=== PATIENT | female | born 1945 | race Caucasian/White ===

== ENCOUNTER → 2018-02-23 15:50 | Outpatient (CLI) | payer MEDICARE, SELFPAY ==
[2018-02-23 18:09] LABS: Anion Gap 10 (5-15); BUN 17 mg/dL (7-18); BUN/Creat Ratio 22.5 RATIO (10-20); Calcium,Total 8.7 mg/dL (8.5-10.1); Chloride 107 mmol/L (98-107); Cholesterol 198 mg/dL (200); Creatinine, Serum 0.76 mg/dL (0.55-1.02); EST Glomerular Filtration Rate 79 mL/min (>60); Est Glom Filt Rate - Afr Amer 96 mL/min (>60); Glucose 123 mg/dL (74-106); High Density Lipoprotein 38 mg/dL; Potassium 3.9 mmol/L (3.5-5.1); Sodium Level 143 mmol/L (136-145); Triglycerides 372 mg/dL; Very Low Density Lipoprotein 74 mg/dL (5-40)
== END ==
PROVIDERS: Family Provider Family Medicine; PCP Family Medicine; Visit Provider Family Medicine
DX: I10 Essential (primary) hypertension (principal)
CPT/HCPCS: 36415; 80048; 80061

== ENCOUNTER → 2018-02-28 17:19 | Outpatient (CLI) | payer MEDICARE, SELFPAY ==
--- NOTE | 2018-02-28 17:26 | RAD_ITS ---
STUDY: X-RAY - ABDOMEN/PELVIS REASON FOR EXAM: Female, 72 years old. Constipation TECHNIQUE: AP supine and upright views of the abdomen and pelvis. COMPARISON: None. FINDINGS: There is no bowel obstruction. There is a large amount of stool in the colon, consistent with constipation. There is no free air. There are degenerative changes noted in the spine. RAD/Abd Inc Decub and/or Erect IMPRESSION: No bowel obstruction. Constipation. Electronically Signed: Jermain Tenorio, at 18:01 EDT Tel , Service support ,
== END ==
PROVIDERS: Family Provider Family Medicine; PCP Family Medicine; Visit Provider Nurse Practitioner Adult Health
DX: K59.00 Constipation, unspecified (principal)
CPT/HCPCS: 74019

== ENCOUNTER → 2019-05-17 16:43 | Outpatient (CLI) | payer MEDICARE, SELFPAY ==
[2018-03-31 14:11] VITALS: BMI 39.6
[2019-05-17 17:23] LABS: Absolute Lymphocyte Count 2.95 X10^3/uL (0.83-4.51); Absolute Neutrophil Count 6.3 X10^3/uL (2.0-7.7); Basophil# 0.05 X10^3/uL; Basophil% 0.5 % (0-1); Eosinophil# 0.18 X10^3/uL; Eosinophils% 1.7 % (0-5); Hematocrit 42.5 % (37-47); Lymphocyte # 2.95 X10^3/ul (4.0); Mean Corp Hgb Conc 32.9 g/dL (32-36); Mean Corpuscular Hgb 33.5 pg (27.0-32.0); Mean Corpuscular Volume 101.7 fL (81-99); Mean Platelet Vol. 10.7 fl (6.2-12.0); Monocyte# 0.99 X10^3/uL; Monocyte% 9.4 % (0-10); NRBC Flagged by Analyzer 0 % (0-5); Neutrophil % 59.9 % (47-70); Platelet Count 184 K/mm3 (150-450); RBC Distribution Width CV 11.9 % (11.6-14.6); RBC Distribution Width SD 44.4 fl (35.1-43.9); Red Blood Count 4.18 M/mm3 (4.2-5.4); White Blood Count 10.5 K/mm3 (4.4-11.0)
--- NOTE | 2019-05-17 17:25 | RAD_ITS ---
STUDY: X-RAY - ABDOMEN/PELVIS REASON FOR EXAM: Female, 74 years old. Irregular bowel. TECHNIQUE: AP supine and upright views of the abdomen and pelvis. COMPARISON: None. FINDINGS: Normal visualized lung bases. There is moderate to abundant fecal debris within the patient. There is a focal loop of small bowel projecting over the left pelvis mildly distended, nonspecific which may indicate mild localized ileus. No signs of bowel obstruction. No free air. The visualized liver, spleen and kidneys are grossly normal in size and morphology. Normal soft tissue structures. There are diffuse degenerative changes of the visualized lumbar spine and bilateral hips. RAD/Abd Inc Decub and/or Erect IMPRESSION: Suggestion of constipation, clinical correlation recommended. No distinct signs of bowel obstruction or free air. Electronically Signed: Elisha Watson MD at 4:54 EDT , Service support ,
[2019-05-17 18:07] LABS: Vitamin D,25 Hydroxy 33.5 ng/mL (29.95-100.01)
[2019-05-17 18:15] LABS: ALB/GLOB Ratio 0.9 RATIO (0.9-2.4); AST(SGOT) 26 U/L (15-37); Alanine Aminotransfer ALT/SGPT 31 U/L (13-56); Albumin, Serum 3.5 g/dL (3.2-5.0); Alkaline Phosphatase 86 U/L (45-117); Anion Gap 7 (5-15); BUN 23 mg/dL (7-18); BUN/Creat Ratio 35.9 RATIO (10-20); Chloride 110 mmol/L (98-107); Creatinine, Serum 0.64 mg/dL (0.55-1.02); EST Glomerular Filtration Rate 96 mL/min (>60); Est Glom Filt Rate - Afr Amer 116 mL/min (>60); Globulin 4.1 g/dL (2.2-4.2); Glucose 91 mg/dL (74-106); Potassium 3.9 mmol/L (3.5-5.1); Protein, Total 7.6 g/dL (6.4-8.2); Sodium Level 141 mmol/L (136-145); Thyroid Stim Hormone (TSH) 1.87 uIU/mL (0.358-3.74)
== END ==
PROVIDERS: Family Provider Family Medicine Geriatric Medicine; PCP Family Medicine Geriatric Medicine; Referring Provider Family Medicine Geriatric Medicine; Visit Provider Family Medicine Geriatric Medicine
DX: K56.41 Fecal impaction (principal); E55.9 Vitamin D deficiency, unspecified; R53.83 Other fatigue
CPT/HCPCS: 36415; 74019; 80053; 82306; 84443; 85025

== ENCOUNTER 2021-08-03 16:05 | Outpatient (CLI) | payer MEDICARE, SELFPAY ==
[2021-08-03 18:06] LABS: Anion Gap 6 (5-15); BUN 20 mg/dL (7-18); BUN/Creat Ratio 27.6 RATIO (10-20); Calcium,Total 9.2 mg/dL (8.5-10.1); Chloride 106 mmol/L (98-107); Cholesterol 172 mg/dL (200); Creatinine, Serum 0.72 mg/dL (0.55-1.02); EST Glomerular Filtration Rate 83 mL/min (>60); Est Glom Filt Rate - Afr Amer 100 mL/min (>60); Glucose 97 mg/dL (74-106); High Density Lipoprotein 43 mg/dL; Potassium 4.8 mmol/L (3.5-5.1); Sodium Level 141 mmol/L (136-145); Triglycerides 317 mg/dL; Very Low Density Lipoprotein 63 mg/dL (5-40)
== END 2021-08-03 23:59 | disposition short-term general hospital (02) ==
LOC: MFPLAB 16:08
PROVIDERS: PCP Family Medicine Geriatric Medicine; Visit Provider Family Medicine
DX: I10 Essential (primary) hypertension (principal)
CPT/HCPCS: 36415; 80048; 80061

== ENCOUNTER → 2022-10-28 | Outpatient (CLI) | payer MEDICARE, SELFPAY ==
[2022-10-28 17:54] LABS: Absolute Lymphocyte Count 1.91 X10^3/uL (0.83-4.51); Absolute Neutrophil Count 5.5 X10^3/uL (2.0-7.7); Basophil# 0.06 X10^3/uL; Basophil% 0.7 % (0-1); Eosinophil# 0.19 X10^3/uL; Eosinophils% 2.2 % (0-5); Hematocrit 42.2 % (37-47); Hemoglobin 14.7 g/dL (12.0-15.0); Lymphocyte # 1.91 X10^3/ul (0.83-4.51); Lymphocyte % 21.9 % (19-41); Mean Corp Hgb Conc 34.8 g/dL (32-36); Mean Corpuscular Hgb 35.9 pg (27.0-32.0); Mean Corpuscular Volume 102.9 fL (81-99); Mean Platelet Vol. 11.5 fl (6.2-12.0); Monocyte# 1.04 X10^3/uL; Monocyte% 11.9 % (0-10); NRBC Flagged by Analyzer 0 % (0-5); Neutrophil # 5.46 X10^3/uL (2.7-7.7); Neutrophil % 62.7 % (47-70); Platelet Count 199 K/mm3 (150-450); RBC Distribution Width CV 12.4 % (11.6-14.6); RBC Distribution Width SD 46.4 fl (35.1-43.9); White Blood Count 8.7 K/mm3 (4.4-11.0)
[2022-10-28 18:14] LABS: Vitamin D,25 Hydroxy 55.1 ng/mL
[2022-10-28 18:28] LABS: Anion Gap 5 (5-15); BUN 17 mg/dL (7-18); Calcium,Total 9.1 mg/dL (8.5-10.1); Chloride 107 mmol/L (98-107); Creatinine, Serum 0.74 mg/dL (0.55-1.02); EST Glomerular Filtration Rate 81 mL/min (>60); Est Glom Filt Rate - Afr Amer 98 mL/min (>60); Glucose 120 mg/dL (74-106); Magnesium 2.3 mg/dL (1.6-2.6); Potassium 4.2 mmol/L (3.5-5.1); Sodium Level 139 mmol/L (136-145); Thyroid Stim Hormone (TSH) 1.64 uIU/mL (0.358-3.74)
== END | disposition home or self-care (01) ==
LOC: MFPLAB 14:40
PROVIDERS: PCP Family Medicine; Referring Provider Family Medicine; Visit Provider Family Medicine
DX: Z00.00 Encounter for general adult medical examination without abnormal findings (principal); R53.83 Other fatigue; E55.9 Vitamin D deficiency, unspecified
CPT/HCPCS: 36415; 80048; 82306; 83735; 84443; 85025

== ENCOUNTER → 2022-12-23 | Outpatient (CLI) | payer MEDICARE, SELFPAY ==
--- NOTE | 2022-12-23 13:21 | BI_ITS ---
MAMMOGRAPHY - BILATERAL SCREENING REASON FOR EXAM: Female, 77 years old. Routine annual screening examination. PERTINENT HISTORY: Non-contributory. Prior left breast aspiration. TECHNIQUE: Digital bilateral breast andre (3D mammographic acquisition) in the CC and MLO projections. 2-D mediolateral oblique (MLO) and craniocaudad (CC) views of both breasts were obtained. CAD: Full Field Digital Mammography with Computer Added Detection was performed. COMPARISON: Comparison is made with prior study of October 04, 2013. FINDINGS: Breast Composition: The breasts are heterogeneously dense, which may obscure small masses. There are no dominant masses or suspicious calcifications. No other significant abnormalities are identified. There has been no significant change since the prior study. BI/SCRN MAMM (CAD)W/ANDRE BILAT IMPRESSION: Stable bilateral screening mammogram. Yearly follow-up mammogram recommended. (A) ASSESSMENT CATEGORY: BIRADS Category 1: Negative. A letter regarding these results will be sent to the patient by the facility within 30 days. Approximately 10% of breast cancers are not detected by mammography. A normal mammogram should not delay biopsy of a clinically suspicious abnormality. [id number] Electronically Signed: Sven Rosado MD at 14:34 EDT ,
--- NOTE | 2022-12-23 14:02 | BD_ITS ---
STUDY: DUAL ENERGY X-RAY ABSORPTIOMETRY / DXA REASON FOR EXAM: Female, 77 years old. [id number] TECHNIQUE: Bone Mineral Density (BMD) measurements of lumbar spine and bilateral hips were obtained. COMPARISON: None. FINDINGS: Lumbar Spine (L1-L4): g/cm2 (1.089) / T-score (0.4) / Z-score (3.0) Findings are suggestive of normal bone density with a low fracture risk. Left Femur Total: g/cm2 (1.000) / T-score (0.5) / Z-score (2.5) Left Femoral Neck: g/cm2 (0.604) / T-score (-2.2) / Z-score (0.1) Right Femur Total: g/cm2 (0.974) / T-score (0.3) / Z-score (2.3) Right Femoral Neck: g/cm2 (0.788) / T-score (-0.6) / Z-score (1.7) BD/Dexa Bone Density Study IMPRESSION: The patient is considered osteopenic as outlined below according to World Ash Organization (WHO) criteria with a moderate fracture risk. Reference Information: The T-score is the number of standard deviations above or below the standard which is normal for young adults at their peak bone mineral density. The World Health Organization (WHO) interprets the T-scores as follows: Above -1 Normal bone density Between -1 and -2.5 Osteopenia Equal to / or below -2.5 Osteoporosis As a practical clinical guideline, osteopenia may be graded as follows: Mild -1 through -1.5 Moderate -1.6 through -2.0 Severe -2.1 through -2.4 The Z-score is the number of standard deviations above or below age-matched controls. A Z-score of less than -1.5 would be considered abnormal. References: 1. NIH Osteoporosis and Related Bone Diseases www osteo.org 2. International Society for Clinical Densitometry www iscd.org 3. National Osteoporosis Foundation www nof.org Electronically Signed: Sven Rosado MD at 14:45 EDT ,
== END | disposition home or self-care (01) ==
PROVIDERS: PCP Family Medicine; Referring Provider Family Medicine; Visit Provider Family Medicine
DX: Z00.00 Encounter for general adult medical examination without abnormal findings (principal); Z12.31 Encounter for screening mammogram for malignant neoplasm of breast; Z78.0 Asymptomatic menopausal state
CPT/HCPCS: 77063; 77067; 77080

== ENCOUNTER 2024-02-24 11:19 | Outpatient (CLI) | payer MEDICARE, SELFPAY ==
[2024-02-24 16:12] LABS: Absolute Lymphocyte Count 1.85 X10^3/uL (0.83-4.51); Absolute Neutrophil Count 5.4 X10^3/uL (2.0-7.7); Basophil# 0.05 X10^3/uL; Basophil% 0.6 % (0-1); Eosinophil# 0.17 X10^3/uL; Eosinophils% 2.1 % (0-5); Hematocrit 43.2 % (37-47); Hemoglobin 14.6 g/dL (12.0-15.0); Lymphocyte # 1.85 X10^3/ul (0.83-4.51); Lymphocyte % 22.5 % (19-41); Mean Corp Hgb Conc 33.8 g/dL (32-36); Mean Corpuscular Hgb 33.9 pg (27.0-32.0); Mean Corpuscular Volume 100.2 fL (81-99); Mean Platelet Vol. 10.9 fl (6.2-12.0); Monocyte# 0.73 X10^3/uL; Monocyte% 8.9 % (0-10); NRBC Flagged by Analyzer 0 % (0-5); Neutrophil % 65.4 % (47-70); Platelet Count 199 K/mm3 (150-450); RBC Distribution Width CV 11.4 % (11.6-14.6); RBC Distribution Width SD 42.2 fl (35.1-43.9); Red Blood Count 4.31 M/mm3 (4.2-5.4); White Blood Count 8.2 K/mm3 (4.4-11.0)
[2024-02-24 16:35] LABS: Vitamin D,25 Hydroxy 69.5 ng/mL
[2024-02-24 16:49] LABS: ALB/GLOB Ratio 0.8 RATIO (0.9-2.4); AST(SGOT) 22 U/L (15-37); Alanine Aminotransfer ALT/SGPT 31 U/L (13-56); Albumin, Serum 3.3 g/dL (3.2-5.0); Alkaline Phosphatase 74 U/L (45-117); Anion Gap 6 (5-15); BUN 24 mg/dL (7-18); BUN/Creat Ratio 32.7 RATIO (10-20); CRP 5.54 mg/L (0.0-3.0); Calcium,Total 8.8 mg/dL (8.5-10.1); Chloride 104 mmol/L (98-107); Cholesterol 176 mg/dL (200); Creatinine, Serum 0.74 mg/dL (0.55-1.02); EST Glomerular Filtration Rate 81 mL/min (>60); Est Glom Filt Rate - Afr Amer 98 mL/min (>60); Glucose 99 mg/dL (74-106); High Density Lipoprotein 65 mg/dL; Magnesium 2.4 mg/dL (1.6-2.6); Potassium 4.3 mmol/L (3.5-5.1); Protein, Total 7.3 g/dL (6.4-8.2); Sodium Level 137 mmol/L (136-145); Triglycerides 156 mg/dL; Very Low Density Lipoprotein 31 mg/dL (5-40)
[2024-02-26 07:07] LABS: HOMOCYSTEINE 8.6 umol/L (0.0-19.2)
== END 2024-02-24 23:59 | disposition home or self-care (01) ==
LOC: MFPLAB 11:20
PROVIDERS: PCP Family Medicine; Visit Provider Family Medicine
DX: Z00.00 Encounter for general adult medical examination without abnormal findings (principal); R53.1 Weakness; I10 Essential (primary) hypertension; E55.9 Vitamin D deficiency, unspecified
CPT/HCPCS: 36415; 80053; 80061; 82306; 83090; 83735; 84443; 85025; 86140

== ENCOUNTER → 2024-08-24 | Outpatient (CLI) | payer MEDICARE, SELFPAY ==
[2024-08-24 18:18] LABS: Hemoglobin A1c 5.6 % (3.8-5.6)
[2024-08-24 18:41] LABS: Anion Gap 8 (5-15); BUN 25 mg/dL (7-18); BUN/Creat Ratio 30.9 RATIO (10-20); Calcium,Total 9.7 mg/dL (8.5-10.1); Chloride 105 mmol/L (98-107); Cholesterol 191 mg/dL (200); Creatinine, Serum 0.81 mg/dL (0.55-1.02); EST Glomerular Filtration Rate 72 mL/min (>60); Est Glom Filt Rate - Afr Amer 87 mL/min (>60); Glucose 114 mg/dL (74-106); High Density Lipoprotein 67 mg/dL; Potassium 4.2 mmol/L (3.5-5.1); Sodium Level 138 mmol/L (136-145); Triglycerides 205 mg/dL; Very Low Density Lipoprotein 41 mg/dL (5-40)
[2024-08-25 10:33] LABS: Vitamin D,25 Hydroxy 81.1 ng/mL
== END | disposition home or self-care (01) ==
LOC: MFPLAB 15:21
PROVIDERS: PCP Family Medicine; Referring Provider Family Medicine; Visit Provider Family Medicine
DX: Z00.00 Encounter for general adult medical examination without abnormal findings (principal); E55.9 Vitamin D deficiency, unspecified
CPT/HCPCS: 36415; 80048; 80061; 82306; 83036; 84443

== ENCOUNTER 2024-10-29 14:53 | Outpatient (RCR) | payer SELFPAY | END 2024-11-21 23:59 | LOC: NS 14:53 | PROVIDERS: PCP Family Medicine | DX: Z71.3 Dietary counseling and surveillance (principal); E66.9 Obesity, unspecified; M16.11 Unilateral primary osteoarthritis, right hip; Z68.41 Body mass index [BMI] 40.0-44.9, adult | CPT/HCPCS: 97802 ==

== ENCOUNTER 2025-04-16 13:09 | Inpatient (IN) | payer MEDICARE, SELFPAY ==
[2025-04-16] VITALS (46 sets, daily range): BP systolic 73–222; BP diastolic 54–127; PULSE 62–158; RESP 12–31; TEMP 36.4–37.2; O2SAT 34–100; BMI 43.8
[2025-04-16] MEDS: 0.9% Normal Saline (1000mL) 1,000 ML 999 ML IV (13:36)
[2025-04-16] MEDS: Amiodarone 360 MG in Dextrose 5% Viaflo Bag 192.8 ML 33.3 MG CONT INF (13:46)
--- NOTE | 2025-04-16 13:54 | RAD_ITS ---
PROCEDURE: CHEST 1 VIEW (PORTABLE) 04/16/2025 REASON FOR EXAM: CHEST PAIN TECHNIQUE: Frontal view of the chest. FINDINGS: Diffuse reticular opacities and vascular indistinctness with hilar prominence favoring edema. Infection is possible. Correlate clinically. The heart borders are unremarkable. No acute osseous abnormalities. RAD/Chest 1 View (Portable) IMPRESSION: Pulmonary findings as above. Reading Location: [id number]
--- NOTE | 2025-04-16 14:00 | EKG12_ITS ---
Test Reason : CODE BLUE Blood Pressure : */* mmHG Vent. Rate : 118 BPM Atrial Rate : * BPM P-R Int : * ms QRS Dur : 88 ms QT Int : 314 ms P-R-T Axes : * 2 74 degrees QTcB Int : 440 ms Atrial fibrillation with rapid ventricular response Nonspecific ST and T wave abnormality Abnormal ECG Confirmed by GAMALIEL DUNCAN, XENA ([id number]), editorial cartoonist SALOME UPTON ([id number]) on 04/17/2025 8:00:46 AM Referred By: EDDIE Confirmed By: XENA ALSTON MD
[2025-04-16 14:05] LABS: Hematocrit 43.4 % (37-47); Hemoglobin 15.0 g/dL (12.0-15.0); Immature Granulocytes Count 0.100 X10^3/uL (0.0-0.0); Mean Corp Hgb Conc 34.6 g/dL (32-36); Mean Corpuscular Volume 100.5 fL (81-99); Mean Platelet Vol. 10.7 fl (6.2-12.0); NRBC Flagged by Analyzer 0 % (0-5); Platelet Count 192 K/mm3 (150-450); RBC Distribution Width CV 12.1 % (11.6-14.6); RBC Distribution Width SD 45.0 fl (35.1-43.9); Red Blood Count 4.32 M/mm3 (4.2-5.4); White Blood Count 15.6 K/mm3 (4.4-11.0)
--- NOTE | 2025-04-16 14:06 | CT_ITS ---
PROCEDURE: CTA CHEST W/WO CONTRAST 04/16/2025 REASON FOR EXAM: ASSESS FOR DISSECTION AND PE Chest pain. TECHNIQUE: Procedure Code: [id number] Modality: CT Procedure: CTA CHEST W/WO CONTRAST Multiplanar Sagittal and Coronal images were obtained. 3D post processing was performed CONTRAST: Isovue-300 VOLUME: 100 mL One or more dose reduction techniques were used (e.g., Automated exposure control, adjustment of the mA and/or kV according to patient size, use of iterative reconstruction technique). RADIATION DOSE SUMMARY: CTDlvol: 12.8 mGy DLP: 566.66 mGycm COMPARISON: Prior chest radiograph done earlier in the day. FINDINGS: Hardware: None Lymph nodes: Small mediastinal lymph nodes. Calcified bilateral hilar lymph nodes. Heart: The heart size is upper limits of normal. No significant coronary artery calcification. Thoracic Aorta: No thoracic aortic aneurysm or dissection. Pulmonary Vessels: No evidence of pulmonary embolism. Lungs and Airways: Scattered bilateral calcified granulomas. Increased interstitial markings suggestive of vascular congestion. Mild scarring at the lung bases. Pleura: Minimal bilateral pleural effusions. Upper Abdomen: Unremarkable Bones: Degenerative changes of the thoracic spine. Increased kyphosis. CT/CTA Chest W/WO Contrast IMPRESSION: No evidence of pulmonary embolism. Findings suggestive of mild vascular congestion with scarring at the lung bases . Reading Location: [place] [id number]
[2025-04-16 14:11] LABS: Prothrombin Time (Protime)PT. 13.0 SECONDS (11.7-14.9)
[2025-04-16 14:12] LABS: Partial Thromboplast Time 25.0 Seconds (24.1-36.2)
[2025-04-16 14:30] LABS: Anion Gap 13 (5-15); BUN 25 mg/dL (4-19); BUN/Creat Ratio 29.5 RATIO (10-20); Calcium,Total 8.7 mg/dL (7.6-11.0); Carbon Dioxide 23.8 mmol/L (21.0-32.0); Chloride 95 mmol/L (98-108); Estimated Creatinine Clearance 53.58 ml/min (50-250); Glucose 139 mg/dL (70-99); Magnesium 2.0 mg/dL (1.5-2.2); Potassium 3.5 mmol/L (3.3-5.1)
[2025-04-16 14:32] LABS: Pro- Brain NATRIURETIC PEPTIDE 955 pg/mL (<=1800); Troponin T High Sensitivity 184 ng/L (<=14)
--- NOTE | 2025-04-16 14:38 | ED.RN ---
Addendum entered by Gloria Schmidt 04/16/25 15:59: Dr. Kellogg declines to intubate at this time and would like patient placed on airvo Original Note: Andrew Kellogg notified of 15L NR and o2 at 84%
--- NOTE | 2025-04-16 14:53 | RAD_ITS ---
PROCEDURE: CHEST 1 VIEW (PORTABLE) 04/16/2025 REASON FOR EXAM: ET TUBE PLACEMENT TECHNIQUE: Frontal view of the chest. COMPARISON: Prior chest radiograph done earlier in the day. FINDINGS: Hardware: An endotracheal tube is in-situ. The tip is at 3.7 cm proximal to the agnes. An orogastric tube is seen with the tip below the left hemidiaphragm. Heart: Heart size is mildly enlarged. Lungs: Bilateral airspace disease in keeping with pulmonary edema. Bones: Degenerative changes are identified within the thoracic spine. Other: RAD/Chest 1 View (Portable) IMPRESSION: Findings suggestive of pulmonary edema. This has progressed as compared to srinath or study. The tip of the endotracheal tube is at 3.7 cm proximal the agnes. The tip of the orogastric tube is below the left hemidiaphragm. Reading Location: [place] [id number]
--- NOTE | 2025-04-16 14:56 | EKG12_ITS ---
Test Reason : code blue Blood Pressure : */* mmHG Vent. Rate : 128 BPM Atrial Rate : * BPM P-R Int : * ms QRS Dur : 94 ms QT Int : 334 ms P-R-T Axes : * 36 80 degrees QTcB Int : 487 ms Accelerated Junctional rhythm with retrograde conduction Low voltage QRS ST elevation, inferior lateral injury Abnormal ECG Confirmed by GAMALIEL DUNCAN, XENA ([id number]), international editorial producer SALOME UPTON ([id number]) on 04/18/2025 1:19:28 PM Referred By: Wayne Confirmed By: XENA ALSTON MD
[2025-04-16] MEDS: Nitroglycerin Infusion 250 ML 24 MG CONT INF (14:59)
--- NOTE | 2025-04-16 15:06 | PCM.CONS.C ---
Assessment & Plan Assessment/Plan (1) Polymorphic ventricular tachycardia: PLAN: Polymorphic ventricular tachycardia. Consider coronary ischemia. Started on heparin. Recommend urgent coronary angiography with possible revascularization. Risks benefits and alternatives explained to patient's daughter. Understands and agrees. (2) Cardiac arrest: PLAN: See #1 above. (3) Flash pulmonary edema: PLAN: Intubated. (4) Respiratory failure: PLAN: On mechanical ventilation. (5) Hypertension: PLAN: History of hypertension. HPI Consult Data Date of Consult: 04/16/25 HPI Narrative Reason for Consultation: Pulseless VT cardiac arrest HPI Narrative: 79-year-old female with past medical history significant for hypertension. She presented to the emergency room with complaints of bilateral shoulder and interscapular pain. EKG done in the field showed normal sinus rhythm with nonspecific changes. Shortly after arrival to the ER, patient has had pulseless VT. Polymorphic ventricular tachycardia was noted. She was successfully cardioverted. Post resuscitation rhythm was atrial fibrillation with rapid ventricular response. Patient was awake at that point in time. Progressively got short of breath and hypoxic. Decision was made to intubate her. During intubation, patient has had PEA arrest. CPR was done. ROSC was obtained. [facility] Medical History (Updated 04/16/25 @ 15:[address] Julien Emanuel MD) Acid reflux Constipation SOB (shortness of breath) Anxiety Depression Hypertension Arthritis Fatigue Home Medications ?Medication ?Instructions ?Recorded ?Last Taken ?Type amlodipine 5 mg tablet (Norvasc) 5 mg PO DAILY 03/31/18 Unknown History atenolol 50 mg tablet 100 mg PO DAILY 03/31/18 Unknown History psyllium husk 0.4 gram capsule 0.4 g PO DAILY 03/31/18 Unknown History (Metamucil) sennosides 8.6 mg-docusate sodium 2 tab PO DAILY PRN 03/31/18 Unknown History 50 mg tablet (Senna with Docusate Sodium) Allergy/AdvReac Type Severity Reaction Status Date / Time No Known Allergies Allergy Verified 04/16/25 13:11 Family History (Updated 03/31/18 @ 14:10 by Nataliia Swain) Mother Arthritis Dementia Father Heart disease Myocardial infarction Surgical History Hx of tonsillectomy History of deviated nasal septum Hx of LASIK Hx of bilateral cataract extraction Social History (Updated 03/31/18 @ 14:[address] Nishi Flowers MD) Smoking Status: Never smoker second hand exposure: No alcohol intake: never substance use type: does not use caffeine: Yes what type of physical activity do you participate in: none frequency: does not exercise seatbelt use: always Physical Exam Narrative Obese. Intubated. Heart sounds 1 and 2 noted. Irregularly irregular. Tachycardic. Chest with bilateral crepitations. No ankle edema. Objective Data Vital Signs: Vital Signs Temp Pulse Resp BP Pulse Ox O2 Del Method 97.5 F L 158 H 22 H 222/123 H 80 Non-Rebreather 04/16/25 13:11 04/16/25 14:48 04/16/25 14:48 04/16/25 14:48 04/16/25 14:38 04/16/25 14:38 Oxygen Delivery Method Non-Rebreather Weight: 209 lb 14.081 oz Body Mass Index (BMI) 43.8 Intake & Output: Intake and Output for Last 24 Hours 04/14/25 04/15/25 04/16/25 23:59 23:59 23:59 Intake Total 0 / 0 Balance 0 / 0 Lab / Micro Data 04/16/25 13:20 04/16/25 13:20 Labs: Laboratory Results - last 24 hr 04/16/25 13:20: WBC 15.6 H, RBC 4.32, Hgb 15.0, Hct 43.4, MCV 100.5 H, MCH 34.7 H, MCHC 34.6, RDW Std Deviation 45.0 H, RDW Coeff of Kari 12.1, Plt Count 192, MPV 10.7, Immature Gran % (Auto) 0.600, Neut % (Auto) 86.0 H, Lymph % (Auto) 6.3 L, [place] % (Auto) 6.5, Eos % (Auto) 0.3, Baso % (Auto) 0.3, Absolute Neuts (auto) 13.4 H, Absolute Lymphs (auto) 0.99, Nucleated RBC % 0, PT 13.0, INR 1.0, APTT 25.0, Sodium 132 L, Potassium 3.5, Chloride 95 L, Carbon Dioxide 23.8, Anion Gap 13, BUN 25 H, Creatinine 0.85, Estim Creat Clear Calc 53.58, Est GFR (MDRD) Non-Af 69, BUN/Creatinine Ratio 29.5 H, Glucose 139 H, Calcium 8.7, Magnesium 2.0, Troponin T High Sens 184 H*, NT pro BNP II 955, TSH 1.640 Cardiology Labs/Tests 04/16/25 13:20: WBC 15.6 H, RBC 4.32, Hgb 15.0, Hct 43.4, MCV 100.5 H, MCH 34.7 H, MCHC 34.6, Plt Count 192, MPV 10.7, Immature Gran % (Auto) 0.600, Neut % (Auto) 86.0 H, Lymph % (Auto) 6.3 L, [place] % (Auto) 6.5, Eos % (Auto) 0.3, Baso % (Auto) 0.3, Absolute Neuts (auto) 13.4 H, Nucleated RBC % 0, PT 13.0, INR 1.0, APTT 25.0, Sodium 132 L, Potassium 3.5, Chloride 95 L, Carbon Dioxide 23.8, Anion Gap 13, BUN 25 H, Creatinine 0.85, Est GFR (MDRD) Non-Af 69, BUN/Creatinine Ratio 29.5 H, Glucose 139 H, Calcium 8.7, Magnesium 2.0 Rhythm: EKG: ECHO: Stress Test: Cardiac Cath: PCI: CT Surgery: Holter monitor: EPS: PPM: CXR: Chest CT Scan: Radiography Diagnostic Testing: Radiology Impression Chest X-Ray 04/16/25 13:54 IMPRESSION: Pulmonary findings as above. Reading Location: [facility] Chest CTA 04/16/25 14:06 IMPRESSION: No evidence of pulmonary embolism. Findings suggestive of mild vascular congestion with scarring at the lung bases. Reading Location: [id number] Risk Score for UA/STEMI Assesmment (YES = 1) Risk Stratification Applicable: No
--- NOTE | 2025-04-16 15:09 | CPS ---
started breathing tx and pt began to code, Dr waters asked to intubate blane stopped tx
--- NOTE | 2025-04-16 15:15 | CM.ED ---
Social work Reason for referral: code blue ERIKA responded to code tim called in ED; SW was told patient's daughter, Mary, went to waiting room. SW entered waiting room and found Mary, introducing self and role at [facility]. SW asked Mary to move to hallway chairs where nobody else was present for some privacy. Mary was tearful and discussed how patient never would have survived this. SW provided active listening as Mary discussed patient's hoarding habits and lack of wanting to go to the doctor for medical care. Mary reportedly lives in [place] and stated driving to see patient on a regular basis. Mary stated knowing something was wrong when Mary arrived today to take patient to lunch and patient asked to come to the hospital instead. Through tears, Mary asked what steps would be next if she even survives this. ERIKA explained the role of SW team during an acute admission and Mary expressed being grateful to not have to make all of those steps in a city I don't even know. Mary walked back to patient's room once patient was stable. Shortly after, patient required intubation and coded again; Mary went back out to hallway chairs. SW provided further support to Mary and empathic listening. Mary stated praying patient would just go if patient was suffering. Mary expressed knowing that intubation was bad and SW stated reason for intubation and that extubation was possible; Mary thanked SW for this knowledge. Mary stated having a job interview tomorrow in [place], but stated canceling this because Mary's daughter, Radha, was going to be bringing Mary arenas to sleep in a hotel tonight. [facility] Event Decorator And Designer Ray was also available for support and walked with Mary down to labor relations or personnel negotiator where patient was receiving care. Handoff via email to Sary GARZON for APS referral to be made tomorrow, 04/17/25. Per Mary, patient is a hoarder and needs a dumpster to start over. Mary stated patient only having small paths through patient's home to walk through. Per EMS report, house conditions are poor with hoarding, only a small path to get to the patient. EMS report also stated needing to decontaminate due to patient's residence having a bed bug warning; this was not mentioned by Mary. Plan: admission to acute; RNCM/SW team to follow for discharge planning needs Yasmine Cambria, TUBE PUSHER, CEMENT TRUCK DRIVER
[2025-04-16 15:31] LABS: Allen Test Positive; Base Excess -5 mmol/L (-2 to +2); FI02 100.0; PEEP 5; PO2 74 mmHG (75-100); RR 20; SITE R Radial; SO2 87 % (95-99); Time Given 15:28:50
[2025-04-16 15:50] LABS: ACT Activated Clotting Time 130 sec (74-137)
[2025-04-16 15:50] LABS: ACT Activated Clotting Time 302 sec (74-137)
--- NOTE | 2025-04-16 15:59 | CHAPLAIN ---
Type of Pastoral Visit ___ Initial Visit ___ Follow-up Visit ___ On-call Visit ___ General Patient Visit ___ Spiritual Assessment ___ Family Conference ___ Bereavement ___ Rapid Response _x__ Code Blue ___ Other (describe below) Pastoral Care Referral From ___ Patient ___ Family ___ Nurse ___ Physician ___ Concrete Engineer ___ Airport Maintenance Chief _x__ Other (describe below) Sacrament/Intervention _x__ Active listening ___ Anointing ___ Nondenominational ___ Bereavement ___ Communion ___ Kortney exploration ___ ___ Life review ___ Prayer ___ Reconciliation ___ Sacrament of Sick _x__ Supportive presence ___ Wedding ___ Other (describe below) Pastoral Comments responded twice to ED for Code Blue for this patient; was presence as medical team worked on and provided care of recovery for this patient; daughter was in the waiting area and attended by ERIKA; also gave offer of support to daughter and then escorted daughter to the sleep lab technologist where patient was given further treatment; assisted in communication with daughter and the planned arrival later today of a granddaughter of patient; gave beverage and presence; daughter indicates that patient is not bahai and would not seek spiritual care for herself if asked; offer of future support as desired
--- OUTSIDE RECORDS SUMMARY | 2025-04-16 16:01 | XMS RPT_ITS | CCD ---
Author Organization [facility] Care Team Providers Care Book Coverer Name Role Phone Eric Rich Primary Care Unavailable Eric Rich Attending Unavailable Eric Rich Referring Unavailable Holly Deleon Attending Unavailable Holly Deleon Referring Unavailable Eric Rich Primary Care Unavailable Holly Deleon Attending Unavailable Holly Deleon Referring Unavailable Eric Rich Primary Care Unavailable Eric Rich Primary Care Unavailable Eric Rich Attending Unavailable Allergies Allergy Classification Reported Allergen(s) Allergy Type Date of Onset Reaction(s) Facility (2 sources) Lisinopril Drug Allergy 03-31-2018 Unknown [facility] (1 source) Lisinopril Drug Allergy 03-31-2018 [facility] Repository Medications Current Medications Medication Drug Class(es) Dates Sig (Normalized) Sig (Original) amLODIPine 5 mg oral tablet (2 sources) Dihydropyridine Calcium Channel Piyush Start: 03-31-2018 take 1 tablet by mouth once daily Amlodipine (Norvasc) 5 mg tablet Active 5 MG PO DAILY March 31, 2018 12:00am atenolol 50 mg oral tablet (2 sources) beta-Adrenergic Piyush Start: 03-31-2018 take 100 mg by mouth once daily Atenolol Active 100 MG PO DAILY March 31, 2018 12:00am docusate sodium 50 mg / sennosides, penitentiary 8.6 mg oral tablet (2 sources) Start: 03-31-2018 take 2 tablets by mouth once daily Sennosides-Docus ate Sodium (Senna With Docusate Sodium) 8.6-50 mg tablet Active 2 TABLET PO DAILY March 31, 2018 12:00am psyllium 400 mg oral capsule (2 sources) Start: 03-31-2018 Psyllium Husk (Metamucil) 0.4 gram capsule Active 0.4 GM PO DAILY March 31, 2018 12:00am Problems Problem Classification Problem Date Documented Da te Episodic/Chronic Anxiety disorders (2 sources) Anxiety; Translations: [Anxiety disorder, unspecified] 03-31-2018 Chronic Esophageal disorders (2 sources) Gastroesophageal reflux disease; Translations: [Gastro-esophageal reflux disease without esophagitis] 03-31-2018 Chronic Essential hypertension (2 sources) Hypertensive disorder; Translations: [Essential (primary) hypertension] 03-31-2018 Chronic Malaise and fatigue (2 sources) Fatigue; Translations: [Other fatigue] 03-31-2018 Episodic Mood disorders (2 sources) Depressive disorder; Translations: [Depression] 03-31-2018 Chronic Osteoarthritis (2 sources) Arthritis; Translations: [Unspecified osteoarthritis, unspecified site] 03-31-2018 Chronic Other eye disorders (2 sources) H/O: Bilateral cataract extraction; Translations: [Cataract extraction status, right eye] 03-31-2018 Episodic Other gastrointestinal disorders (2 sources) Constipation; Translations: [Constipation, unspecified] 03-31-2018 Episodic Other lower respiratory disease (2 sources) Dyspnea; Translations: [Shortness of breath] 03-31-2018 Episodic Other lower respiratory disease (2 sources) H/O: respiratory disease; Translations: [Personal history of other diseases of the respiratory system] 03-31-2018 Episodic Results Test Name Value Interpretation Reference Range Facility Vitamin D,25 Hydroxyon 08-25 Vitamin D 25-OH 81.1 ng/mL Normal [facility] Comment on above: Result Comment: Shirley min D 25(OH) Status Range Deficiency <20 ng/mL (50nmol/L) Insufficiency 20 - 30 ng/mL (50 - 75 nmol/L) Sufficiency 30 - 100 ng/mL (75 - 250 nmol/L) Toxicity >100 ng/mL (>250 nmol/L) Performed By: #### L 803.0600, L501.9520, L501.6710, L501.5200, L500.4050, L506.1000, L100.0100, L500.4100 #### [facility] [address] [place], [address] Basic Metabolic Profile (BMP )on 08-24-2024 BUN/CRE 30.9 RATIO High 10-20 [facility] Comment on above: Performed By: #### L 501.9520, L501.9985, L500.4100, L500.2500, L506.1000 #### [facility] [address] [place], [address] CA,Total 9.7 mg/dL Normal 8.5-10.1 [facility] Comment on above: Performed By: #### L 501.9520, L501.9985, L500.4100, L500.2500, L506.1000 #### [facility] [address] [place], [address] Chloride [Moles/Vol] 105 mmol/L Normal 98-107 [facility] Comment on above: Performed By: #### L 501.9520, L501.9985, L500.4100, L500.2500, L506.1000 #### [facility] [address] [place], [address] CO2 [Moles/Vol] 25.0 mmol/L Normal 21.0-32.0 [facility] Comment on above: Performed By: #### L 501.9520, L501.9985, L500.4100, L500.2500, L506.1000 #### [facility] [address] [place], [address] Creatinine [Mass/Vol] 0.81 mg/dL Normal 0.55-1.02 [facility] Comment on above: Result Comment: The validity of the calculated GFR GFRAA in patients over 70 years has not been determined. Clinical correlation is essential. Performed By: #### L 501.9520, L501.9985, L500.4100, L500.2500, L506.1000 #### [facility] [address] [place], [address] EST GFR - AA 87 mL/min Normal >60 [facility] Comment on above: Result Comment: Afri can [place] GFR Calc Performed By: #### L 501.9520, L501.9985, L500.4100, L500.2500, L506.1000 #### [facility] [address] [place], [address] GAP 8 Normal 5-15 [facility] Comment on above: Performed By: #### L 501.9520, L501.9985, L500.4100, L500.2500, L506.1000 #### [facility] [address] [place], [address] GFR/1.73 sq M.predicted among non-blacks MDRD (S/P/Bld) [Vol rate/Area] 72 mL/min/{1.73_m2} Normal >60 [facility] Comment on above: Result Comment: Non- GFR Calc Performed By: #### L 501.9520, L501.9985, L500.4100, L500.2500, L506.1000 #### [facility] [address] [place], [address] Glucose [Mass/Vol] 114 mg/dL High 74-[address] [facility] Comment on above: Result Comment: Fast ing Glucose result from 100 to 125 mg/dL suggests IMPAIRED HOMEOSTASIS per A.D.A. criteria. Performed By: #### L 501.9520, L501.9985, L500.4100, L500.2500, L506.1000 #### [facility] [address] [place], [address] Potassium [Moles/Vol] 4.2 mmol/L Normal 3.5-5.1 [facility] Comment on above: Performed By: #### L 501.9520, L501.9985, L500.4100, L500.2500, L506.1000 #### [facility] [address] [place], [address] Sodium [Moles/Vol] 138 mmol/L Normal 136-[address] [facility] Comment on above: Performed By: #### L 501.9520, L501.9985, L500.4100, L500.2500, L506.1000 #### [facility] [address] [place], [address] Urea nitrogen [Mass/Vol] 25 mg/dL High 7-18 [facility] Comment on above: Performed By: #### L 501.9520, L501.9985, L500.4100, L500.2500, L506.1000 #### [facility] [address] [place], [address] Hemoglobin A1con 08-24-2024 HbA1c (Bld) [Mass fraction] 5.6 % Normal 3.8-5.6 [facility] Comment on above: Result Comment: Norm al < 5.7 % Prediabetic 5.7 - 6.4 % Diabetic >or= 6.5 % Please note range changes. Performed By: #### L 501.9520, L501.9985, L500.4100, L500.2500, L506.1000 #### [facility] [address] [place], [address] Lipid Profileon 08-24-2024 Cholesterol [Mass/Vol] 191 mg/dL Normal 200 [facility] Comment on above: Result Comment: <200 mg/dL Desirable 200-240 mg/dL Borderline >240 mg/dL High Risk Performed By: #### L 803.0600, L501.9520, L501.6710, L501.5200, L500.4050, L506.1000, L100.0100, L500.4100 #### [facility] [address] [place], [address] Cholesterol in HDL [Mass/Vol] 67 mg/dL Normal [facility] Comment on above: Result Comment: The drugs N-Acetylcysteine and Metamizole may falsely depress this assay. Reference Range HDL <40 mg/dL Low HDL Cholesterol HDL >or= 60 mg/dL High HDL Cholesterol Performed By: #### L 803.0600, L501.9520, L501.6710, L501.5200, L500.4050, L506.1000, L100.0100, L500.4100 #### [facility] [address] [place], [address] Cholesterol in LDL [Mass/Vol] 83 mg/dL Normal 0-130 [facility] Comment on above: Performed By: #### L 803.0600, L501.9520, L501.6710, L501.5200, L500.4050, L506.1000, L100.0100, L500.4100 #### [facility] [address] [place] [place], [address] Cholesterol in VLDL [Mass/Vol] 41 mg/dL High 5-40 [facility] Comment on above: Performed By: #### L 803.0600, L501.9520, L501.6710, L501.5200, L500.4050, L506.1000, L100.0100, L500.4100 #### [facility] [address] [place], [address] Triglyceride [Mass/Vol] 205 mg/dL High [facility] Comment on above: Result Comment: The drugs N-Acetylcysteine and Metamizole may falsely depress this assay. Serum Triglycerides Reference Interval Normal <150 mg/dL Borderline high 150 - 199 mg/dL High 200 - 499 mg/dL Very High > or = 500 mg/dL Performed By: #### L 803.0600, L501.9520, L501.6710, L501.5200, L500.4050, L506.1000, L100.0100, L500.4100 #### [facility] [address] [place], [address] Thyroid Stim Hormone (TSH)on 08-24-2024 TSH 1.520 uIU/mL Normal 0.358-3.740 [facility] Comment on above: Performed By: #### L 803.0600, L501.9520, L501.6710, L501.5200, L500.4050, L506.1000, L100.0100, L500.4100 #### [facility] [address] [place], [address] L803.0600on 02-26-2024 HOMOCYSTEINE 8.6 umol/L Normal 0.0-19.2 [facility] Comment on above: Result Comment: Perf ormed at: [facility] [id number] Waterproofer: Elijah Sexton PhD, Phone: [phone] Performed By: #### L 803.0600, L501.9520, L501.6710, L501.5200, L500.4050, L506.1000, L100.0100, L500.4100 #### [facility] [address] [place], [address] CBC W/Diff, Automatedon 08-0 Absolute Lymph 1.85 X10 3/uL Normal 0.83-4.51 [facility] Comment on above: Performed By: #### L 803.0600, L501.9520, L501.6710, L501.5200, L500.4050, L506.1000, L100.0100, L500.4100 #### [facility] [address] [place], [address] Absolute Neut 5.4 X10 3/uL Normal 2.0-7.7 [facility] Comment on above: Performed By: #### L 803.0600, L501.9520, L501.6710, L501.5200, L500.4050, L506.1000, L100.0100, L500.4100 #### [facility] [address] [place], [address] (516) Basophils/100 WBC (Bld) 0.6 % Normal 0-1 [facility] Comment on above: Performed By: #### L 803.0600, L501.9520, L501.6710, L501.5200, L500.4050, L506.1000, L100.0100, L500.4100 #### [facility] [address] [place], [address] Eosinophils/100 WBC (Bld) 2.1 % Normal 0-5 [facility] Comment on above: Performed By: #### L 803.0600, L501.9520, L501.6710, L501.5200, L500.4050, L506.1000, L100.0100, L500.4100 #### [facility] [address] [place], [address] (491) Erythrocyte distribution width (RBC) [Ratio] 11.4 % Low 11.6-14.6 [facility] Comment on above: Performed By: #### L 803.0600, L501.9520, L501.6710, L501.5200, L500.4050, L506.1000, L100.0100, L500.4100 #### [facility] [address] [place], [place], [id number] (309) Hematocrit (Bld) [Volume fraction] 43.2 % Normal 37-47 [facility] Comment on above: Performed By: #### L 803.0600, L501.9520, L501.6710, L501.5200, L500.4050, L506.1000, L100.0100, L500.4100 #### [facility] [address] [place], [place], [id number] Hemoglobin (Bld) [Mass/Vol] 14.6 g/dL Normal 12.0-15.0 [facility] Comment on above: Performed By: #### L 803.0600, L501.9520, L501.6710, L501.5200, L500.4050, L506.1000, L100.0100, L500.4100 #### [facility] [address] [place], [address] IG% 0.500 Normal 0.0-0.9 [facility] Comment on above: Result Comment: IG% - Immature Granulocytes (promyelocytes, myelocytes and metamyelocytes) > 1% indicates that a LEFT SHIFT is Present. Performed By: #### L 803.0600, L501.9520, L501.6710, L501.5200, L500.4050, L506.1000, L100.0100, L500.4100 #### [facility] [address] [place], [address] Lymphocytes/100 WBC (Bld) 22.5 % Normal 19-41 [facility] Comment on above: Performed By: #### L 803.0600, L501.9520, L501.6710, L501.5200, L500.4050, L506.1000, L100.0100, L500.4100 #### [facility] [address] [place], [address] MCH (RBC) [Entitic mass] 33.9 pg High 27.0-32.0 [facility] Comment on above: Performed By: #### L 803.0600, L501.9520, L501.6710, L501.5200, L500.4050, L506.1000, L100.0100, L500.4100 #### [facility] [address] [place], [address] MCHC (RBC) [Mass/Vol] 33.8 g/dL Normal 32-36 [facility] Comment on above: Performed By: #### L 803.0600, L501.9520, L501.6710, L501.5200, L500.4050, L506.1000, L100.0100, L500.4100 #### [facility] [address] [place], [address] MCV (RBC) [Entitic vol] 100.2 fL High 81-99 [facility] Comment on above: Performed By: #### L 803.0600, L501.9520, L501.6710, L501.5200, L500.4050, L506.1000, L100.0100, L500.4100 #### [facility] [address] [place], [address] Monocytes/100 WBC (Bld) 8.9 % Normal 0-10 [facility] Comment on above: Performed By: #### L 803.0600, L501.9520, L501.6710, L501.5200, L500.4050, L506.1000, L100.0100, L500.4100 #### [facility] [address] [place], [address] Neutrophils/100 WBC (Bld) 65.4 % Normal 47-70 [facility] Comment on above: Performed By: #### L 803.0600, L501.9520, L501.6710, L501.5200, L500.4050, L506.1000, L100.0100, L500.4100 #### [facility] [address] [place], [address] Nucleated RBC (Bld) [#/Vol] 0 10*3/uL Normal 0-5 [facility] Comment on above: Performed By: #### L 803.0600, L501.9520, L501.6710, L501.5200, L500.4050, L506.1000, L100.0100, L500.4100 #### [facility] [address] [place], [address] Platelet mean volume (Bld) [Entitic vol] 10.9 fL Normal 6.2-12.0 [facility] Comment on above: Performed By: #### L 803.0600, L501.9520, L501.6710, L501.5200, L500.4050, L506.1000, L100.0100, L500.4100 #### [facility] [address] [place], [address] Platelets (Bld) [#/Vol] 199 10*3/uL Normal 150-450 [facility] Comment on above: Performed By: #### L 803.0600, L501.9520, L501.6710, L501.5200, L500.4050, L506.1000, L100.0100, L500.4100 #### [facility] [address] [place], [address] RBC (Bld) [#/Vol] 4.31 10*6/uL Normal 4.2-5.4 [facility] Comment on above: Performed By: #### L 803.0600, L501.9520, L501.6710, L501.5200, L500.4050, L506.1000, L100.0100, L500.4100 #### [facility] [address] [place], [address] RDW SD 42.2 fl Normal 35.1-43.9 [facility] Comment on above: Performed By: #### L 803.0600, L501.9520, L501.6710, L501.5200, L500.4050, L506.1000, L100.0100, L500.4100 #### [facility] [address] [place], [address] WBC (Bld) [#/Vol] 8.2 10*3/uL Normal 4.4-11.[address] [facility] Comment on above: Performed By: #### L 803.0600, L501.9520, L501.6710, L501.5200, L500.4050, L506.1000, L100.0100, L500.4100 #### [facility] [address] [place], [place], [id number] CRPon 02-24-2024 C-REACTIVE PROT 5.54 mg/L High 0.0-3.0 [facility] Comment on above: Result Comment: C-Re active Protein (CRP) provides useful information for the diagnosis, therapy and monitoring of inflammatory processes and associated diseases. For the evaluation of Relative Risk for Cardiovascular Disease, a High Sensitivity CRP (HSCRP) should be ordered. Performed By: #### L 803.0600, L501.9520, L501.6710, L501.5200, L500.4050, L506.1000, L100.0100, L500.4100 #### [facility] [address] [place], [address] Comprehensive Metabolic Prof ilon 02-24-2024 Albumin [Mass/Vol] 3.3 g/dL Normal 3.2-5.[address] [facility] Comment on above: Performed By: #### L 803.0600, L501.9520, L501.6710, L501.5200, L500.4050, L506.1000, L100.0100, L500.4100 #### [facility] [address] [place], [address] Albumin/Globulin [Mass ratio] 0.8 {ratio} Low 0.9-2.4 [facility] Comment on above: Performed By: #### L 803.0600, L501.9520, L501.6710, L501.5200, L500.4050, L506.1000, L100.0100, L500.4100 #### [facility] [address] [place], [address] ALK P 74 U/L Normal 45-117 [facility] Comment on above: Performed By: #### L 803.0600, L501.9520, L501.6710, L501.5200, L500.4050, L506.1000, L100.0100, L500.4100 #### [facility] [address] [place], [address] ALT [Catalytic activity/Vol] 31 U/L Normal 13-56 [facility] Comment on above: Performed By: #### L 803.0600, L501.9520, L501.6710, L501.5200, L500.4050, L506.1000, L100.0100, L500.4100 #### [facility] [address] [place], [address] AST [Catalytic activity/Vol] 22 U/L Normal 15-37 [facility] Comment on above: Performed By: #### L 803.0600, L501.9520, L501.6710, L501.5200, L500.4050, L506.1000, L100.0100, L500.4100 #### [facility] [address] [place], [address] Bilirubin [Mass/Vol] 0.60 mg/dL Normal 0.20-1.00 [facility] Comment on above: Result Comment: For patients on eltrombopag therapy, use of Dimension [place] TBIL is not recommended. Performed By: #### L 803.0600, L501.9520, L501.6710, L501.5200, L500.4050, L506.1000, L100.0100, L500.4100 #### [facility] [address] [place], [address] BUN/CRE 32.7 RATIO High 10-20 [facility] Comment on above: Performed By: #### L 803.0600, L501.9520, L501.6710, L501.5200, L500.4050, L506.1000, L100.0100, L500.4100 #### [facility] [address] [place], [address] CA,Total 8.8 mg/dL Normal 8.5-10.1 [facility] Comment on above: Performed By: #### L 803.0600, L501.9520, L501.6710, L501.5200, L500.4050, L506.1000, L100.0100, L500.4100 #### [facility] [address] [place], [address] Chloride [Moles/Vol] 104 mmol/L Normal 98-107 [facility] Comment on above: Performed By: #### L 803.0600, L501.9520, L501.6710, L501.5200, L500.4050, L506.1000, L100.0100, L500.4100 #### [facility] [address] [place], [address] CO2 [Moles/Vol] 27.0 mmol/L Normal 21.0-32.0 [facility] Comment on above: Performed By: #### L 803.0600, L501.9520, L501.6710, L501.5200, L500.4050, L506.1000, L100.0100, L500.4100 #### [facility] [address] [place], [address] Creatinine [Mass/Vol] 0.74 mg/dL Normal 0.55-1.02 [facility] Comment on above: Result Comment: The validity of the calculated GFR GFRAA in patients over 70 years has not been determined. Clinical correlation is essential. Performed By: #### L 803.0600, L501.9520, L501.6710, L501.5200, L500.4050, L506.1000, L100.0100, L500.4100 #### [facility] [address] [place], [address] EST GFR - AA 98 mL/min Normal >60 [facility] Comment on above: Result Comment: Afri can [place] GFR Calc Performed By: #### L 803.0600, L501.9520, L501.6710, L501.5200, L500.4050, L506.1000, L100.0100, L500.4100 #### [facility] [address] [place], [address] GAP 6 Normal 5-15 [facility] Comment on above: Performed By: #### L 803.0600, L501.9520, L501.6710, L501.5200, L500.4050, L506.1000, L100.0100, L500.4100 #### [facility] [address] [place], [address] GFR/1.73 sq M.predicted among non-blacks MDRD (S/P/Bld) [Vol rate/Area] 81 mL/min/{1.73_m2} Normal >60 [facility] Comment on above: Result Comment: Non- GFR Calc Performed By: #### L 803.0600, L501.9520, L501.6710, L501.5200, L500.4050, L506.1000, L100.0100, L500.4100 #### [facility] [address] [place], [address] Globulin (S) [Mass/Vol] 4.0 g/dL Normal 2.2-4.2 [facility] Comment on above: Performed By: #### L 803.0600, L501.9520, L501.6710, L501.5200, L500.4050, L506.1000, L100.0100, L500.4100 #### [facility] [address] [place], [address] Glucose [Mass/Vol] 99 mg/dL Normal 74-[address] [facility] Comment on above: Performed By: #### L 803.0600, L501.9520, L501.6710, L501.5200, L500.4050, L506.1000, L100.0100, L500.4100 #### [facility] [address] [place], [address] Potassium [Moles/Vol] 4.3 mmol/L Normal 3.5-5.1 [facility] Comment on above: Performed By: #### L 803.0600, L501.9520, L501.6710, L501.5200, L500.4050, L506.1000, L100.0100, L500.4100 #### [facility] [address] [place], [address] Sodium [Moles/Vol] 137 mmol/L Normal 136-[address] [facility] Comment on above: Performed By: #### L 803.0600, L501.9520, L501.6710, L501.5200, L500.4050, L506.1000, L100.0100, L500.4100 #### [facility] [address] [place], [address] T PROT 7.3 g/dL Normal 6.4-8.2 [facility] Comment on above: Performed By: #### L 803.0600, L501.9520, L501.6710, L501.5200, L500.4050, L506.1000, L100.0100, L500.4100 #### [facility] [address] [place], [address] Urea nitrogen [Mass/Vol] 24 mg/dL High 7-18 [facility] Comment on above: Performed By: #### L 803.0600, L501.9520, L501.6710, L501.5200, L500.4050, L506.1000, L100.0100, L500.4100 #### [facility] [address] [place], [address] Lipid Profileon 02-24-2024 Cholesterol [Mass/Vol] 176 mg/dL Normal 200 [facility] Comment on above: Result Comment: <200 mg/dL Desirable 200-240 mg/dL Borderline >240 mg/dL High Risk Performed By: #### L 803.0600, L501.9520, L501.6710, L501.5200, L500.4050, L506.1000, L100.0100, L500.4100 #### [facility] [address] [place], [address] Cholesterol in HDL [Mass/Vol] 65 mg/dL Normal [facility] Comment on above: Result Comment: The drugs N-Acetylcysteine and Metamizole may falsely depress this assay. Reference Range HDL <40 mg/dL Low HDL Cholesterol HDL >or= 60 mg/dL High HDL Cholesterol Performed By: #### L 803.0600, L501.9520, L501.6710, L501.5200, L500.4050, L506.1000, L100.0100, L500.4100 #### [facility] [address] [place], [address] Cholesterol in LDL [Mass/Vol] 80 mg/dL Normal 0-130 [facility] Comment on above: Performed By: #### L 803.0600, L501.9520, L501.6710, L501.5200, L500.4050, L506.1000, L100.0100, L500.4100 #### [facility] [address] [place], [address] Cholesterol in VLDL [Mass/Vol] 31 mg/dL Normal 5-40 [facility] Comment on above: Performed By: #### L 803.0600, L501.9520, L501.6710, L501.5200, L500.4050, L506.1000, L100.0100, L500.4100 #### [facility] [address] [place], [address] Triglyceride [Mass/Vol] 156 mg/dL Normal [facility] Comment on above: Result Comment: The drugs N-Acetylcysteine and Metamizole may falsely depress this assay. Serum Triglycerides Reference Interval Normal <150 mg/dL Borderline high 150 - 199 mg/dL High 200 - 499 mg/dL Very High > or = 500 mg/dL Performed By: #### L 803.0600, L501.9520, L501.6710, L501.5200, L500.4050, L506.1000, L100.0100, L500.4100 #### [facility] [address] [place], [address] Magnesiumon 02-24-2024 Magnesium [Mass/Vol] 2.4 mg/dL Normal 1.6-2.6 [facility] Comment on above: Performed By: #### L 803.0600, L501.9520, L501.6710, L501.5200, L500.4050, L506.1000, L100.0100, L500.4100 #### [facility] [address] [place], [place], [id number] Thyroid Stim Hormone (TSH)on 02-24-2024 TSH 1.60 uIU/mL Normal 0.358-3.74 [facility] Comment on above: Performed By: #### L 803.0600, L501.9520, L501.6710, L501.5200, L500.4050, L506.1000, L100.0100, L500.4100 #### [facility] [address] [place], [place], [id number] Vitamin D,25 Hydroxyon 02-23 Vitamin D 25-OH 69.5 ng/mL Normal [facility] Comment on above: Result Comment: Shirley min D 25(OH) Status Range Deficiency <20 ng/mL (50nmol/L) Insufficiency 20 - 30 ng/mL (50 - 75 nmol/L) Sufficiency 30 - 100 ng/mL (75 - 250 nmol/L) Toxicity >100 ng/mL (>250 nmol/L) Performed By: #### L 803.0600, L501.9520, L501.6710, L501.5200, L500.4050, L506.1000, L100.0100, L500.4100 #### [facility] [address] [place], [address] Absolute lymphocyte countOrd ered By: Dr. Rich on 10-28-2022 Lymphocytes Auto (Unsp spec) [#/Vol] 1.91 10*3/uL 0.83-4.51 [facility] Basophil percentageOrdered B y: Dr. Rich on 10-28-2022 Basophils/100 WBC (Bld) 0.7 % 0-1 [facility] Chloride [Moles/Vol] 107 mmol/L 98-107 [facility] Eosinophils/100 WBC (Bld) 2.2 % 0-5 [facility] Glucose [Mass/Vol] 120 mg/dL 74-[address] [facility] Comment on above: Fasting Glucose resu lt from 100 to 125 mg/dL suggests IMPAIRED HOMEOSTASIS per A.D.A. criteria. Neutrophils (Bld) [#/Vol] 5.5 10*3/uL 2.0-7.7 [facility] Neutrophils/100 WBC (Bld) 62.7 % 47-70 [facility] Potassium [Moles/Vol] 4.2 mmol/L 3.5-5.1 [facility] Comment on above: Slight Hemolysis, Re sult may be falsely increased. Sodium [Moles/Vol] 139 mmol/L 136-[address] [facility] WBC (Bld) [#/Vol] 8.7 10*3/uL 4.4-11.[address] [facility] Blood erythrocytes count (nu mber/volume)Ordered By: Dr. Rich on 10-28-2022 RBC (Bld) [#/Vol] 4.10 10*6/uL 4.2-5.4 [facility] Blood hemoglobin measurement (mass/volume)Ordered By: Dr. Rich on 10-28-2022 Hemoglobin (Bld) [Mass/Vol] 14.7 g/dL 12.0-15.0 [facility] Blood lymphocytes/100 leukoc ytesOrdered By: Dr. Rich on 10-28-2022 Lymphocytes/100 WBC (Bld) 21.9 % 19-41 [facility] Blood monocytes/100 leukocyt esOrdered By: Dr. Rich on 10-28-2022 Monocytes/100 WBC (Bld) 11.9 % 0-10 [facility] Blood platelet mean volumeOr dered By: Dr. Rich on 10-28-2022 Platelet mean volume (Bld) [Entitic vol] 11.5 fL 6.2-12.0 [facility] Determination of erythrocyte mean corpuscular volume (MCV)Ordered By: Dr. Rich on 10-28-2022 MCV (RBC) [Entitic vol] 102.9 fL 81-99 [facility] Hematocrit Auto (Bld) [Volum e fraction]Ordered By: Dr. Rich on 10-28-2022 Hematocrit (Bld) [Volume fraction] 42.2 % 37-47 [facility] - Chemistry and C hemistry - challengeOrdered By: Dr. Rich on 10-28-2022 CO2 [Moles/Vol] 27.0 mmol/L 21.0-32.0 [facility] Magnesium [Mass/Vol] 2.3 mg/dL 1.6-2.6 [facility] Comment on above: Slight Hemolysis, Re sult may be falsely increased. Urea nitrogen/Creatinine [Mass ratio] 23.0 mg/mg 10-20 [facility] - Hematology and Cell countsOrdered By: Dr. Rich on 10-28-2022 Erythrocyte distribution width (RBC) [Entitic vol] 46.4 fL 35.1-43.9 [facility] Erythrocyte distribution width (RBC) [Ratio] 12.4 % 11.6-14.6 [facility] Immature granulocytes/100 WBC (Bld) 0.600 % 0.0-0.9 [facility] Comment on above: IG% - Immature Granu locytes (promyelocytes, myelocytes and metamyelocytes) > 1% indicates that a LEFT SHIFT is Present. MCH (RBC) [Entitic mass] 35.9 pg 27.0-32.0 [facility] Nucleated RBC/100 WBC (Bld) [Ratio] 0 % 0-5 [facility] Auto (RBC) [Mass/Vol]Or dered By: Dr. Rich on 10-28-2022 MCHC (RBC) [Mass/Vol] 34.8 g/dL 32-36 [facility] No Panel InformationOrdered By: Dr. Rich on 10-28-2022 Estimated GFR (MDRD) Amer 98 mL/min >60 [facility] Comment on above: GFR Calc Estimated GFR (MDRD) Non-Af Amer 81 mL/min >60 [facility] Comment on above: Non- GFR Calc Thyroid Stimulating Hormone (TSH) 1.64 uIU/mL 0.358-3.74 [facility] Vitamin D 25-Hydroxy 55.1 ng/mL [facility] Comment on above: Vitamin D 25(OH) Sta tus Range Deficiency <20 ng/mL (50nmol/L) Insufficiency 20 - 30 ng/mL (50 - 75 nmol/L) Sufficiency 30 - 100 ng/mL (75 - 250 nmol/L) Toxicity >100 ng/mL (>250 nmol/L) Platelets bldOrdered By: Dr. Rich on 10-28-2022 Platelets (Bld) [#/Vol] 199 10*3/uL 150-450 [facility] Serum or plasma calcium bobby urement (mass/volume)Ordered By: Dr. Rich on 10-28-2022 Calcium [Mass/Vol] 9.1 mg/dL 8.5-10.[address] [facility] Serum or plasma creatinine m easurement (mass/volume)Ordered By: Dr. Rich on 10-28-2022 Creatinine [Mass/Vol] 0.74 mg/dL 0.55-1.02 [facility] Comment on above: The validity of the calculated GFR & GFRAA in patients over 70 years has not been determined. Clinical correlation is essential. Serum or plasma urea nitroge n measurement (mass/volume)Ordered By: Dr. Rich on 10-28-2022 Urea nitrogen [Mass/Vol] 17 mg/dL 7-18 [facility] Thin prep Papanicolaou smear with manual screeningOrdered By: Dr. Rich on 10-28-2022 Thin prep Papanicolaou smear with manual screening 5 5-15 [facility] Encounters Encounter Date Encounter Type Care Provider Facility Start: 12-10-2024 ambulatory [facility] Facility :[facility] Start: 10-29-2024 End: 11-21-2024 ambulatory [facility] Facility:[facility] Start: 09-12-2024 Encounter for genera l adult medical examination without abnormal findings Eric Rich [facility] Start: 08-24-2024 End: 08-24-2024 ambulatory Eric Rich Facility:[facility] Start: 02-24-2024 End: 02-24-2024 ambulatory Eric Rich Facility:[facility] Start: 12-23-2022 End: 12-23-2022 ambulatory [facility] Work Phone: Start: 12-23-2022 End: 12-23-2022 Patient encounter procedure [facility]Outpatient Bone Densitometry Start: 10-28-2022 End: 10-28-2022 ambulatory [facility] Work Phone: Start: 10-28-2022 End: 10-28-2022 Patient encounter procedure [facility], [facility] Procedures Date Procedure Procedure Detail Performing Clinician Start: 12-23-2022 Dual energy X-ray absorptiometry Start: 12-23-2022 Screening mammography History of laser ass isted in situ keratomileusis Hx of LASIK History of tonsillectomy Hx of tonsillect rob Payers Date Payer Category Payer Self-pay [id number] 2024 Self-pay [id number] 2011 Private Health Insurance [id number] Unknown [id number] Unknown [id number] Unknown [id number] Unknown [id number] Social History Date Type Detail Facility Start: 03-31-2018 Tobacco smoking stat us AZIS Unknown if ever smoked [facility] Start: 1945 Sex Assigned At Female [facility] Clinical Note 09-09-2020 Note Date & Type Note Facility 09-09-2020 Note Patient Outreach ([facility]) VALENTIN VASQUEZ ([id number]) 1945 F Date Time Provider Department 09/09/20 JUANCHO LEON During your visit today, we recorded the following information about you: Allergies As of Date: 09/09/2020 Noted Allergy Reaction MOLD 06/13/2019 4 - Hives Date Reviewed: 10/23/2019 Reviewed by: Fernando Chin - Fully Assessed Order(s):SARS-COVID VACCINE 1ST DOSE APPT [[id number]] Order #: [id number] FUTURE Prescriptions as of 09/09/2020 Sig: ATENOLOL 50 MG TABLET Take 100 mg by mouth once mónica* AMLODIPINE 5 MG TABLET Take 5 mg by mouth once daily. VITAMIN B COMP AND C NO.3 ORAL Take by mouth. Problem List As Of Date: 09/09/2020 (None) Letter Text Encounter Status:Closed by [employer], PRODUSER on 09/12/20 [facility] Evaluation note Note Date & Type Note Facility Evaluation note No assessment information availa ble [facility] Work Phone: Summary Purpose Family History No Family History Records Found Relationship Condition Age at Onset Recorded Date/T rachana mother Arthritis Unknown Dementia Unknown father Cardiac disease Unknown Myocardial infarction Unknown Advance Directives No Advanced Directives Records FoundNo Advanced Directives Records Found Chief Complaint and Reason for Visit Chief Complaint SCREENING Additional Source Comments INFORMATION SOURCE (unrecogn ized section and content) DATE CREATED AUTHOR 09/03/2021 [facility] DATE CREATED AUTHOR AUTHOR'S ORGANIZ ATION 11/26/2024 [facility] Care Teams (unrecognized sec tion and content) Team Status: Active Member Role Status Dates Dr. Medhat Aguirre MD Family Provider Active Dr. Eric Rich MD Primary Care Provider Active Team Status: Inactive Member Role Status Dates Dr. Eric Rich MD Primary Care Provi alexa, Attending Provider, Referring Provider Active Goals (unrecognized section and content) Goals may be documented in a n alternate sectionGoals may be documented in an alternate section FOR RECORDS PERTAINING TO PATIENTS WHO ARE OR HAVE BEEN ENROLLED IN A CHEMICAL DEPENDENCY/SUBSTANCEABUSE PROGRAM, SOME INFORMATION MAY BE OMITTED. This clinical summary was aggregated from multiple sources. Caution should be exercised in using it in the provision of clinical care. This summary normalizes information from multiple sources, and as a consequence, information in this document may materially change the coding, format and clinical context of patient data. In addition, data may be omitted in some cases. CLINICAL DECISIONS SHOULD BE BASED ON THE PRIMARY CLINICAL RECORDS. [employer] provides no warranty or guarantee of the accuracy or completeness of information in this document.
--- NOTE | 2025-04-16 16:25 | EX.ED.DYSGE1 ---
HPI History of Present Illness Chief Complaint: General Illness Narrative Narrative: Chief complaint and HPI: Patient is a 79-year-old female with past medical history of hypertension who is now status postcardiac arrest from pulseless ventricular tachycardia. History is limited by patient due to critical condition. Patient presented to the emergency department for bilateral shoulder pain radiating between the shoulders. Shortly after being placed in a room from triage she developed pulseless ventricular tachycardia. CPR was initiated with 200 J shock. Patient obtained ROSC. Currently alert and complaining of nausea and shortness of breath. Still endorsing pain in the shoulders, worse in the right. States she was bedridden for the past 48 hours secondary to not feeling well. Review of systems: See HPI Medications: As listed on the chart Allergies: As listed on the chart PFSH: Per chart Vital signs: As listed on the chart. Reviewed. Physical exam postcardiac arrest: Gen: Alert Head: Normocephalic, atraumatic Eyes: No sclera icterus, conjunctiva clear, PERRL ENT: Moist mucous membranes Neck: Trachea midline CV: Tachycardic, irregular irregular rhythm, no murmurs Resp: Lungs diminished in the bilateral bases, coarse GI: Abd soft, non-distended, non-tender Musc: Moves all extremities, no formative Skin: Warm, dry [facility] Medical History (Updated 04/16/25 @ 18:[address] Diana Mayers MD) Acid reflux Constipation SOB (shortness of breath) Anxiety Depression Hypertension Arthritis Fatigue Home Medications ?Medication ?Instructions ?Recorded ?Last Taken ?Type amlodipine 5 mg tablet (Norvasc) 5 mg PO DAILY 03/31/18 Unknown History atenolol 50 mg tablet 100 mg PO DAILY 03/31/18 Unknown History psyllium husk 0.4 gram capsule 0.4 g PO DAILY 03/31/18 Unknown History (Metamucil) sennosides 8.6 mg-docusate sodium 2 tab PO DAILY PRN 03/31/18 Unknown History 50 mg tablet (Senna with Docusate Sodium) Allergy/AdvReac Type Severity Reaction Status Date / Time No Known Allergies Allergy Verified 04/16/25 13:11 Family History Mother Arthritis Dementia Father Heart disease Myocardial infarction Surgical History Hx of tonsillectomy History of deviated nasal septum Hx of LASIK Hx of bilateral cataract extraction Social History Smoking Status: Never smoker second hand exposure: No alcohol intake: never substance use type: does not use caffeine: Yes what type of physical activity do you participate in: none frequency: does not exercise seatbelt use: always EXAM Physical Exam Const Vital Signs: 04/16/25 13:11 04/16/25 13:15 04/16/25 13:30 Temperature 97.5 F L Temperature Source Oral Pulse Rate 114 H Pulse Rate [3] Pulse Rate [6] Pulse Rate [8] Respiratory Rate 18 Respiratory Rate [3] Respiratory Rate [8] Respiratory Effort Respiratory Pattern Tachypnea Blood Pressure 155/86 H Blood Pressure [6] Blood Pressure [8] Blood Pressure Mean 109 Pulse Ox 94 86 Oxygen Delivery Method Room Air Nasal Cannula Oxygen Flow Rate (L/min) 2 Fraction of Inspired Oxygen (FIO2) 04/16/25 13:39 04/16/25 13:40 04/16/25 13:45 Temperature Temperature Source Pulse Rate 113 H 108 H Pulse Rate [3] 113 H Pulse Rate [6] Pulse Rate [8] Respiratory Rate 24 H 19 H Respiratory Rate [3] 14 Respiratory Rate [8] Respiratory Effort Respiratory Pattern Blood Pressure 174/87 H Blood Pressure [6] Blood Pressure [8] Blood Pressure Mean 110 Pulse Ox 94 Oxygen Delivery Method Oxygen Flow Rate (L/min) Fraction of Inspired Oxygen (FIO2) 04/16/25 13:47 04/16/25 13:48 04/16/25 13:51 Temperature Temperature Source Pulse Rate 100 102 H Pulse Rate [3] Pulse Rate [6] Pulse Rate [8] Respiratory Rate 17 17 Respiratory Rate [3] Respiratory Rate [8] Respiratory Effort Respiratory Pattern Blood Pressure 155/91 H 158/88 H Blood Pressure [6] Blood Pressure [8] Blood Pressure Mean 111 110 Pulse Ox 96 97 Oxygen Delivery Method Nasal Cannula Oxygen Flow Rate (L/min) 3 Fraction of Inspired Oxygen (FIO2) 04/16/25 13:54 04/16/25 13:57 04/16/25 14:00 Temperature Temperature Source Pulse Rate 103 H 100 100 Pulse Rate [3] Pulse Rate [6] Pulse Rate [8] Respiratory Rate 30 H 26 H 22 H Respiratory Rate [3] Respiratory Rate [8] Respiratory Effort Respiratory Pattern Blood Pressure 152/84 H 151/83 H Blood Pressure [6] Blood Pressure [8] Blood Pressure Mean 105 96 Pulse Ox 96 97 98 Oxygen Delivery Method Oxygen Flow Rate (L/min) Fraction of Inspired Oxygen (FIO2) 04/16/25 14:01 04/16/25 14:03 04/16/25 14:08 Temperature Temperature Source Pulse Rate 90 128 H Pulse Rate [3] Pulse Rate [6] Pulse Rate [8] Respiratory Rate 12 31 H Respiratory Rate [3] Respiratory Rate [8] Respiratory Effort Respiratory Pattern Tachypnea Blood Pressure 145/81 H 167/97 H Blood Pressure [6] Blood Pressure [8] Blood Pressure Mean 101 112 Pulse Ox 96 97 Oxygen Delivery Method Oxygen Flow Rate (L/min) Fraction of Inspired Oxygen (FIO2) 04/16/25 14:15 04/16/25 14:21 04/16/25 14:24 Temperature Temperature Source Pulse Rate 100 109 H Pulse Rate [3] Pulse Rate [6] Pulse Rate [8] Respiratory Rate 27 H 19 H Respiratory Rate [3] Respiratory Rate [8] Respiratory Effort Respiratory Pattern Blood Pressure 151/75 H 159/96 H Blood Pressure [6] Blood Pressure [8] Blood Pressure Mean 96 114 Pulse Ox 96 89 Oxygen Delivery Method Oxygen Flow Rate (L/min) Fraction of Inspired Oxygen (FIO2) 04/16/25 14:27 04/16/25 14:30 04/16/25 14:33 Temperature Temperature Source Pulse Rate 117 H 121 H Pulse Rate [3] Pulse Rate [6] Pulse Rate [8] Respiratory Rate Respiratory Rate [3] Respiratory Rate [8] Respiratory Effort Respiratory Pattern Blood Pressure 176/104 H 161/125 H Blood Pressure [6] Blood Pressure [8] Blood Pressure Mean 123 137 Pulse Ox 85 84 Oxygen Delivery Method Oxygen Flow Rate (L/min) Fraction of Inspired Oxygen (FIO2) 04/16/25 14:38 04/16/25 14:39 04/16/25 14:42 Temperature Temperature Source Pulse Rate 154 H 95 Pulse Rate [3] Pulse Rate [6] Pulse Rate [8] Respiratory Rate 15 12 Respiratory Rate [3] Respiratory Rate [8] Respiratory Effort Respiratory Pattern Blood Pressure 152/92 H Blood Pressure [6] Blood Pressure [8] Blood Pressure Mean 107 Pulse Ox 80 80 Oxygen Delivery Method Non-Rebreather Non-Rebreather Oxygen Flow Rate (L/min) 15 Fraction of Inspired Oxygen (FIO2) 04/16/25 14:45 04/16/25 14:46 04/16/25 14:48 Temperature Temperature Source Pulse Rate 62 Pulse Rate [3] Pulse Rate [6] 158 H Pulse Rate [8] 140 H Respiratory Rate 14 Respiratory Rate [3] Respiratory Rate [8] 22 H Respiratory Effort Short of Breath Labored Accessory Muscle Use Respiratory Pattern Apnea Blood Pressure 160/127 H Blood Pressure [6] 222/123 H Blood Pressure [8] 166/105 H Blood Pressure Mean 137 Pulse Ox 34 Oxygen Delivery Method Oxygen Flow Rate (L/min) Fraction of Inspired Oxygen (FIO2) 04/16/25 14:48 04/16/25 14:51 04/16/25 14:54 Temperature Temperature Source Pulse Rate 152 H 129 H Pulse Rate [3] Pulse Rate [6] Pulse Rate [8] Respiratory Rate 16 19 H Respiratory Rate [3] Respiratory Rate [8] Respiratory Effort Respiratory Pattern Blood Pressure 191/106 H 222/123 H 166/105 H Blood Pressure [6] Blood Pressure [8] Blood Pressure Mean 129 152 118 Pulse Ox 81 79 Oxygen Delivery Method Oxygen Flow Rate (L/min) Fraction of Inspired Oxygen (FIO2) 04/16/25 14:57 04/16/25 14:59 04/16/25 15:00 Temperature Temperature Source Pulse Rate 131 H 123 H 125 H Pulse Rate [3] Pulse Rate [6] Pulse Rate [8] Respiratory Rate 20 H 17 Respiratory Rate [3] Respiratory Rate [8] Respiratory Effort Respiratory Pattern Blood Pressure 124/97 H 124/97 H 118/85 H Blood Pressure [6] Blood Pressure [8] Blood Pressure Mean 104 96 Pulse Ox 78 92 Oxygen Delivery Method Oxygen Flow Rate (L/min) Fraction of Inspired Oxygen (FIO2) 04/16/25 15:03 04/16/25 15:06 04/16/25 15:09 Temperature Temperature Source Pulse Rate 102 H 118 H Pulse Rate [3] Pulse Rate [6] Pulse Rate [8] Respiratory Rate 20 H 20 H Respiratory Rate [3] Respiratory Rate [8] Respiratory Effort Respiratory Pattern Blood Pressure 113/77 127/87 H 145/109 H Blood Pressure [6] Blood Pressure [8] Blood Pressure Mean 86 98 120 Pulse Ox 98 99 Oxygen Delivery Method Oxygen Flow Rate (L/min) Fraction of Inspired Oxygen (FIO2) 04/16/25 15:30 04/16/25 15:47 Temperature 97.5 F L Temperature Source Pulse Rate 109 H 123 H Pulse Rate [3] Pulse Rate [6] Pulse Rate [8] Respiratory Rate 22 H 15 Respiratory Rate [3] Respiratory Rate [8] Respiratory Effort Respiratory Pattern Normal Blood Pressure 124/97 H Blood Pressure [6] Blood Pressure [8] Blood Pressure Mean 106 Pulse Ox 94 80 Oxygen Delivery Method Oxygen Flow Rate (L/min) Fraction of Inspired Oxygen (FIO2) 100 MDM MDM MDM Narrative Medical decision making narrative: Patient is a 79-year-old female with past medical history of hypertension who is now status postcardiac arrest from pulseless ventricular tachycardia. History is limited by patient due to critical condition. Patient presented to the emergency department for bilateral shoulder pain radiating between the shoulders. Shortly after being placed in a room from triage she developed pulseless ventricular tachycardia. CPR was immediately initiated. Patient received 200 J shock and obtained ROSC. Arrhythmia after obtaining ROSC as atrial fibrillation with RVR. Amiodarone bolus and amiodarone drip started. Aspirin was originally ordered however it was reported that patient already received aspirin via EMS and therefore this was discontinued. Patient nauseous and vomiting. Zofran ordered. Cardiac/respiratory workup ordered including CTA. EKG postcardiac arrest shows atrial fibrillation with RVR. Heart rate 118. Nonspecific ST changes. No ST elevation. Cardiology was immediately consulted and I spoke with Dr. Maharaj. Recommend me reaching out to Dr. Emanuel who is on-call for interventional cardiology. Agrees with CTA chest to assess for PE and dissection. Will evaluate the patient. Chest x-ray was obtained at bedside and personally reviewed by myself. Pulmonary edema. No large effusion. Patient taken immediately to imaging to obtain CTA. CTA was personally reviewed by myself, no large PE or dissection. Upon returning from CTA chest, patient became hypoxic with increased respiratory distress ultimately requiring emergent intubation. Intubation was very difficult due to copious amount of secretions/pulmonary edema. During intubation, patient had PEA arrest likely secondary from her hypoxia. CPR was immediately initiated. She received epinephrine and bicarbonate. Patient quickly obtained ROSC with rhythm on the monitor showing A-fib with RVR. Cardiology, Dr. Emanuel was in the room during the event. Plan is for Central Office Worker, start heparin, another bolus of amiodarone. Despite ROSC and intubation, patient remained hypoxic with high PEEP. Repeat chest x-ray at bedside was personally reviewed by myself. Worsening pulmonary edema. ET tube in place but asked respiratory to advance by [address] Given patient increased pulmonary edema which we are suctioning through the ET tube. Her hypotension, concern is for flash pulmonary edema. Patient given IV Lasix and placed on nitroglycerin drip with improvement in blood pressure and oxygenation. Troponin 184. Repeat EKG after ROSC and prior to transfer to the cardiac Central Office Worker shows ST elevation in multiple leads, most specifically V3 through V6 concerning for STEMI. Dr. Emanuel made aware. Patient transferred immediately to the Central Office Worker. Daughter was updated of the plan and escorted to the Central Office Worker. CBC shows leukocytosis of 15.6. No anemia. Platelets unremarkable. Coagulation panel unremarkable. BMP with mild dehydration without FELA. Magnesium unremarkable. BNP unremarkable. TSH unremarkable. CTA chest shows no evidence of pulmonary embolism. Findings suggestive of mild vascular congestion and scarring at the lung bases. No dissection. Hospitalist was consulted for admission and patient was discussed with Dr. Mayers. Plan will be for ICU admission. Endotracheal Intubation Indication: Acute hypoxia, respiratory distress Consent: Emergent Procedure: The patient was on a environmental monitoring specialist including continuous pulse oximetry. Patient's hypoxia/respiratory distress rapidly declining requiring the patient to be bag masked due to low saturations. Patient received 20 mg etomidate and 80 mg of rocuronium. Patient was very difficult to intubate secondary to copious secretions and pulmonary edema requiring frequent suctioning. During intubation she went into PEA arrest and CPR was immediately initiated during intubation. A size 7.5 endotracheal tube was placed. The tube was secured at 21 cm at the lips. Appropriate endotracheal tube position was confirmed by direct visualization of vocal cord passage and post intubation chest x-ray. ET tube was advanced by 2 cm. Impression: 1. Pulseless ventricular tachycardia cardiac arrest, status post ROSC 2. PEA cardiac arrest, status post ROSC 3. STEMI 4. Acute hypoxic respiratory failure requiring intubation 5. Flash pulmonary edema 6. Atrial fibrillation with RVR 45 minutes of critical care time utilized in managing the patient. This is due to high probability of and deterioration of the patient based on the patient's condition and excludes any separately billable procedures. Lab Data Labs: Laboratory Results - last 24 hr 04/16/25 04/16/25 04/16/25 13:20 14:23 14:37 WBC 15.6 H RBC 4.32 Hgb 15.0 Hct 43.4 MCV 100.5 H MCH 34.7 H MCHC 34.6 RDW Std Deviation 45.0 H RDW Coeff of Kari 12.1 Plt Count 192 MPV 10.7 Immature Gran % (Auto) 0.600 Neut % (Auto) 86.0 H Lymph % (Auto) 6.3 L Morton % (Auto) 6.5 Eos % (Auto) 0.3 Baso % (Auto) 0.3 Absolute Neuts (auto) 13.4 H Absolute Lymphs (auto) 0.99 Nucleated RBC % 0 PT 13.0 INR 1.0 APTT 25.0 Activated Clotting Time 130 302 H Sodium 132 L Potassium 3.5 Chloride 95 L Carbon Dioxide 23.8 Anion Gap 13 BUN 25 H Creatinine 0.85 Estim Creat Clear Calc 53.58 Est GFR (MDRD) Non-Af 69 BUN/Creatinine Ratio 29.5 H Glucose 139 H Calcium 8.7 Magnesium 2.0 Troponin T High Sens 184 H* NT pro BNP II 955 TSH 1.640 04/16/25 04/16/25 15:25 15:35 WBC RBC Hgb Hct MCV MCH MCHC RDW Std Deviation RDW Coeff of Kari Plt Count MPV Immature Gran % (Auto) Neut % (Auto) Lymph % (Auto) Morton % (Auto) Eos % (Auto) Baso % (Auto) Absolute Neuts (auto) Absolute Lymphs (auto) Nucleated RBC % PT INR APTT Activated Clotting Time 274 H 268 H Sodium Potassium Chloride Carbon Dioxide Anion Gap BUN Creatinine Estim Creat Clear Calc Est GFR (MDRD) Non-Af BUN/Creatinine Ratio Glucose Calcium Magnesium Troponin T High Sens NT pro BNP II TSH ABG Data ABG results: ABG 04/16/25 15:26 Specimen Type ART Sample Site R Radial pH 7.10 L* Bicarbonate Actual 24.3 Total CO2 27 Base Excess -5 L O2 Saturation 87 L O2 % 100.0 ABG pCO2 78.3 H* ABG pO2 74 L Remy Test Positive Respiration Rate 20 O2 Delivery Device ET Tube Vent Mode AC Tidal Volume 400.0 POC PEEP 5 Crit Call To/Read Back Yes Blood Gas Notified Whom BRITTNY Blood Gas Notified Time 15:28:50 Radiography Diagnostic Testing: Clinical Impression(s) from Imaging Studies Chest X-Ray 04/16/25 13:54 IMPRESSION: Pulmonary findings as above. Reading Location: [id number] Chest CTA 04/16/25 14:06 IMPRESSION: No evidence of pulmonary embolism. Findings suggestive of mild vascular congestion with scarring at the lung bases. Reading Location: [facility]- Chest X-Ray 04/16/25 14:53 IMPRESSION: Findings suggestive of pulmonary edema. This has progressed as compared to prior study. The tip of the endotracheal tube is at 3.7 cm proximal the agnes. The tip of the orogastric tube is below the left hemidiaphragm. Reading Location: [facility]- Discharge Plan Disposition Disposition: Acute Care Hospital [facility] Discharge Date/Time: 04/16/25 15:01
[2025-04-16 16:39] LABS: ACT Activated Clotting Time 268 sec (74-137)
[2025-04-16 16:39] LABS: ACT Activated Clotting Time 274 sec (74-137)
[2025-04-16 16:59] LABS: Base Excess -4 mmol/L (-2 to +2); PO2 82 mmHG (75-100); SITE Not entered; SO2 94 % (95-99)
--- NOTE | 2025-04-16 17:08 | ECHOCS_ITS ---
Reason For Study Reason For Study: ABNL EKG Procedure This was a 2D Doppler, Color Flow transthoracic echocardiogram. The study was technically difficult. Due to body habitus. Contrast injection was performed. Exam performed portable in ICU/CCU. Left Ventricle Normal LV size. Mild concentric left ventricular hypertrophy. Severe posterior and lateral hypokinesis. Apical hypokinesis. Estimated LVEF 40-45%. Stage II diastolic dysfunction with elevated left atrial filling pressures. Right Ventricle Normal right ventricle. Atria The left atrium is moderately enlarged. Normal right atrium. Mitral Valve Severe mitral annular calcification. Tricuspid Valve Trivial tricuspid valve insufficiency. Unable to estimate RV systolic pressure due to insufficient tricuspid regurgitant envelope. Aortic Valve The aortic valve is not well visualized in the short axis view. There is no aortic stenosis. No aortic valve insufficiency. Pulmonic Valve The pulmonic valve is not well visualized. Pericardium/Pleural No pericardial effusion. Medication Diluted definity 2.5ml given slow IV push to enhance endocardial definition. MMode/2D Measurements & Calculations LVIDd: 4.4 cm IVSd: 0.85 cm Ao root diam: 2.9 cm LVIDs: 3.3 cm LVPWd: 1.0 cm RVDd: 2.6 cm FS: 25.0 % LAV(MOD-bp): 55.2 ml LVAd ap4: 28.3 cm2 SV(MOD-sp4): 42.2 ml LAV(MOD-bp) Indexed: 30.1 ml/m2 LVLd ap4: 7.8 cm SI(MOD-sp4): 23.0 ml/m2 LAV(MOD-sp2): 56.8 ml EDV(MOD-sp4): 82.2 ml LAV(MOD-sp4): 53.2 ml EDV(sp4-el): 87.3 ml LVAs ap4: 18.5 cm2 LVLs ap4: 7.0 cm ESV(MOD-sp4): 40.0 ml ESV(sp4-el): 41.6 ml EF(MOD-sp4): 51.4 % EF(sp4-el): 52.3 % SV(sp4-el): 45.7 ml LA A4 area: 17.9 cm2 LA dimension(2D): 3.7 cm RA A4 area: 12.4 cm2 TAPSE: 1.6 cm Time Measurements MV dec time: 0.30 sec Doppler Measurements & Calculations MV E max tyrone: 62.0 cm/sec Lat Peak E' [place]one: 3.7 cm/sec Med Peak E' [place]: 3.6 cm/sec MV A max tyrone: 104.4 cm/sec E/E' lat: 16.9 E/E' med: 17.2 MV E/A: 0.59 MV V2 max: 122.5 cm/sec MV P1/2t max tyrone: 67.3 cm/sec Ao V2 max: 142.4 cm/sec MV max P.0 mmHg MV P1/2t: 82.1 msec Ao max P.1 mmHg MV V2 mean: 52.8 cm/sec Ao V2 mean: 93.4 cm/sec MV mean P.4 mmHg MV dec slope: 240.1 cm/sec2 Ao mean P.9 mmHg MV V2 VTI: 29.4 cm MVA(P1/2t): 2.7 cm2 Ao V2 VTI: 23.8 cm AV (velocity ratio): 0.86 LV V1 max: 116.3 cm/sec PA V2 max: 98.9 cm/sec TR max tyrone: 189.1 cm/sec LV V1 max P.4 mmHg TR max P.3 mmHg LV V1 mean P.0 mmHg LV V1 mean: 82.8 cm/sec LV V1 VTI: 20.5 cm ECHO/Echo Complete W/ Contrast Interpretation Summary The study was technically difficult. Mild concentric left ventricular hypertrophy. Severe posterior and lateral hypokinesis. Apical hypokinesis. Estimated LVEF 40 -45%. Stage II diastolic dysfunction with elevated left atrial filling pressures. The left atrium is moderately enlarged. Severe mitral annular calcification. Ordering Physician: Julien Emanuel Referring Physician: Eric Rich Performed By: Desiree Waddell, RDCS, RVT
--- NOTE | 2025-04-16 17:13 | CL.I_ITS ---
Patient Name: VALENTIN VASQUEZ Study Date: 04/16/2025 Performing: Julien Emanuel MD Ht: 58 inches 147.32 cm : 1945 Wt: 209.88 lbs 95.2 kg Age: 79 Gender: female BSA: 1.86 PROCEDURE(S) PERFORMED DC01-([id number])LHC/COR/LV IC12-([id number])JEREMIE W/WO PTCA, SINGLE CORONARY ARTERY CLINICAL PROFILE AND CO-MORBIDITIES Indications: Resuscitated Cardiac Arrest, Suspected CAD Heart Failure: NYHA Class: 4, Newly Diagnosed: Yes, Heart Failure Type: Systolic CAD Presentations: Non-STEMI. 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 The risks and benefits of the procedure as well as a full description of our services here and lack of surgical backup were fully explained to the patient and/or their significant other prior to the catheterization. The Timeout was completed, verifying the correct patient and procedure. The patient's procedural site was prepped and draped in the usual fashion. Local anesthetic was given subcutaneously to right radial region with Lidocaine 2%. Using a modified Seldinger technique, arterial access was obtained via the right radial artery, a 6Fr sheath was inserted.. Left Coronary Artery selective angiography was performed in multiple views using a 5 Fr. 4.0 [place] catheter. Right Coronary Artery selective angiography was then performed in multiple views using a 5 Fr. 3DRC (Waqas) catheter. Left Ventriculography was performed in PRICE projection using a 5 Fr. Pigtail catheter. LV to AO pullback pressures were then recorded XB 3.0 Guide catheter was inserted and engaged into the LCA. Runthough Guide wire was advanced to the LAD. Emerge 2.50x20 Balloon catheter was inserted. PTCA balloon inflated at 6 atms for 9 secs. PTCA balloon inflated at 6 atms for 10 secs. PTCA balloon inflated at 6 atms for 10 secs. Angiogram performed post balloon dilatation. [place] Carlos 3.0x38 Drug Eluting stent was inserted. Angiogram performed post stent deployment. NC Emerge 3.50x15 Balloon catheter was inserted. Angiogram performed post balloon dilatation. Choice extra support Guide wire was inserted as a florencio wire NC Emerge 3.50x8 Balloon catheter was inserted. NC Emerge 3.50x8 Balloon catheter was inserted. Emerge 3.50x8 Balloon catheter was inserted. PTCA balloon inflated at 8 atms for 6 secs. PTCA balloon inflated at 8 atms for 5 secs. Angiogram performed post balloon dilatation. Guide wire was repositioned to the LAD The arterial sheath was pulled and a TR Band was applied for hemostasis w/ 10ml air CORONARY ANGIOGRAPHY DOMINANCE: Right Dominant LEFT HEART ASSESSMENT Left Ventricular Ejection Fraction: by LV Gram 40 % LVEDP: 27 mmHg LEFT MAIN: Tubular 20% Proximal lesion in LMCA LEFT ANTERIOR DESCENDING ARTERY: LAD: Calcified 100% Mid lesion in LAD RAMUS: Tubular 80% Ostial lesion in Ramus RIGHT CORONARY ARTERY: RCA: Tubular 60% Mid lesion in RCA COLLATERAL FLOW: Collateral flow from RPLS to SEP INTERVENTION INFORMATION LESION SITE: Circumflex (Mid) Lesion Complexity: High/C, thrombus present: Yes, lesion length: 36 mm, culprit lesion: Yes Pre Stenosis: 100 % Pre intervention BRUNA flow: 0 PROCEDURE: Drug Eluting Stent with pre and post dilatation Post Stenosis: 0 % Post intervention BRUNA flow: 3 Lesion Devices: Cordis 6 Fr XB3.0 100cm Guide Catheter Terumo .014 180cm Runthrough Extra Floppy straight [employer] EMERGE MR 2.50x20 BALLOON Medtronic 3.0 x 38 CARLOS FRONTIER JEREMIE [facility] [place] EMERGE MR 3.50x15 BALLOON [facility] [place] EMERGE MR 3.50x08 BALLOON [employer] EMERGE MR 3.50x08 BALLOON COMPLICATIONS No Complications PROCEDURE MEDICATIONS Oxygen: 100 % FiO2 via ventilator. See Resp Record for Settings Amiodarone drip at 1mg 04/16/2025 15:29:46 Brilinta 180 mg OG @ 04/16/2025 15:38:35 Heparin 8000 unit(s) IV 04/16/2025 15:24:00 Heparin 2000 unit(s) IV 04/16/2025 16:05:31 Nitro drip at 40mcq, Amiodarone drip at 1mg 04/16/2025 15:29:46 Nitro glycerin 25mg / 250ml D5W @ 60 mcg/min (increased rate) 04/16/2025 15:29:54 Nitro 100 mcg IC 04/16/2025 15:47:08 Nitro glycerin 25mg / 250ml D5W @ 30 mcg/min (decreased rate) 04/16/2025 15:50:29 Nitro glycerin discontinued 04/16/2025 16:01:31 Magnesium Sulfate 2 Gm 04/16/2025 16:30:58 SUMMARY OF HEMODYNAMIC DATA Time AIR REST ECG 15:19:28 AO 188/141 (166) SA 15:29:10 AO 157/127 (142) 15:32:01 AO 172/119 (145) 15:36:22 AO 135/101 (117) 15:48:07 AO 137/105 (121) 15:51:54 AO 102/79 (90) 16:00:58 AO 128/86 (102) 16:06:54 AO 116/80 (94) 16:13:09 AO 130/87 (106) 16:16:17 ECG 16:18:50 LV 161/13, 26 16:22:42 LV 162/12, 27 16:22:51 LV 184/11, 28 16:28:48 LV 178/11, 27 16:28:57 LVp 184/9, 28 16:29:03 AOp 170/97 (128) 16:29:10 17:03:35 Signed By Julien Emanuel MD On 04/16/2025 17:12:53 Julien Emanuel MD
--- NOTE | 2025-04-16 17:40 | PCM.HP.STD ---
HPI - General General Date of Admission: 04/16/25 Date of Service: 04/16/25 Chief Complaint: Arm and jaw pain HPI Narrative VALENTIN VASQUEZ, is a 79-year-old female with a history of hypertension presented [facility] ED 04/16/2025 due to pain between her shoulder blades radiating to both arms. In the ED shortly after she got to her room she was found to be in pulseless V. tach on telemetry and CODE BLUE was called. Patient required defibrillation x 1 with conversion to atrial fibrillation with pulse. Afterwards she was awake and alert and told ED physician that she had right shoulder pain and was bedridden for 2 days prior to coming in but had no other complaints per report. Subsequent workup in the ED with temp 97.5, heart rate 113, blood pressure on arrival was 155/86, respiratory rate 18 and pulse ox 94% on room air. She subsequently developed flash pulmonary edema and became hypoxic with escalating oxygen requirements and required emergent intubation, during intubation had PEA arrest, CPR done and ROSC obtained. Patient taken emergently to the [facility]. In the ED prior to second arrest patient had a white count of 15.6, hemoglobin 15, INR of 1, BMP with a sodium of 132, potassium 3.5, chloride 95, BUN of 25 and a creatinine of 0.85 with a glucose of 139, TSH and magnesium within normal limits, proBNP 955, troponin came back at 184. Patient had CTA with no PE and findings suggestive of mild vascular congestion with scarring at the lung bases. Repeat chest x-ray after intubation with findings suggestive of pulmonary edema that progressed compared to prior study. In [facility] ARCHITECT INTERN Mid LAD, 100% mid LCX with thrombus, 50-60% mid RCA and successful PTCA/JEREMIE to mid LCx. Patient evaluated in ICU at bedside but unable to obtain any additional history given patient is intubated and sedated. [facility] Medical History (Updated 04/16/25 @ 18:[address] Diana Mayers MD) Acid reflux Anxiety Arthritis Constipation Depression Fatigue Hypertension SOB (shortness of breath) Home Medications ?Medication ?Instructions ?Recorded ?Last Taken ?Type amlodipine 5 mg tablet (Norvasc) 5 mg PO DAILY 03/31/18 Unknown History atenolol 50 mg tablet 100 mg PO DAILY 03/31/18 Unknown History psyllium husk 0.4 gram capsule 0.4 g PO DAILY 03/31/18 Unknown History (Metamucil) sennosides 8.6 mg-docusate sodium 2 tab PO DAILY PRN 03/31/18 Unknown History 50 mg tablet (Senna with Docusate Sodium) Allergy/AdvReac Type Severity Reaction Status Date / Time No Known Allergies Allergy Verified 04/16/25 13:11 Family History Mother Arthritis Dementia Father Heart disease Myocardial infarction Surgical History History of deviated nasal septum Hx of bilateral cataract extraction Hx of LASIK Hx of tonsillectomy Social History Smoking Status: Never smoker second hand exposure: No alcohol intake: never substance use type: does not use caffeine: Yes what type of physical activity do you participate in: none frequency: does not exercise seatbelt use: always Vital Signs Vital Signs Vital Signs: 04/16/25 13:11 04/16/25 13:15 04/16/25 13:30 Temperature 97.5 F L Temperature Source Oral Pulse Rate 114 H Pulse Rate [3] Pulse Rate [6] Pulse Rate [8] Respiratory Rate 18 Respiratory Rate [3] Respiratory Rate [8] Respiratory Effort Respiratory Pattern Tachypnea Blood Pressure 155/86 H Blood Pressure [6] Blood Pressure [8] Blood Pressure Mean 109 Blood Pressure Source Blood Pressure Position Blood Pressure Location Pulse Ox 94 86 Oxygen Delivery Method Room Air Nasal Cannula Oxygen Flow Rate (L/min) 2 Fraction of Inspired Oxygen (FIO2) 04/16/25 13:39 04/16/25 13:40 04/16/25 13:45 Temperature Temperature Source Pulse Rate 113 H 108 H Pulse Rate [3] 113 H Pulse Rate [6] Pulse Rate [8] Respiratory Rate 24 H 19 H Respiratory Rate [3] 14 Respiratory Rate [8] Respiratory Effort Respiratory Pattern Blood Pressure 174/87 H Blood Pressure [6] Blood Pressure [8] Blood Pressure Mean 110 Blood Pressure Source Blood Pressure Position Blood Pressure Location Pulse Ox 94 Oxygen Delivery Method Oxygen Flow Rate (L/min) Fraction of Inspired Oxygen (FIO2) 04/16/25 13:47 04/16/25 13:48 04/16/25 13:51 Temperature Temperature Source Pulse Rate 100 102 H Pulse Rate [3] Pulse Rate [6] Pulse Rate [8] Respiratory Rate 17 17 Respiratory Rate [3] Respiratory Rate [8] Respiratory Effort Respiratory Pattern Blood Pressure 155/91 H 158/88 H Blood Pressure [6] Blood Pressure [8] Blood Pressure Mean 111 110 Blood Pressure Source Blood Pressure Position Blood Pressure Location Pulse Ox 96 97 Oxygen Delivery Method Nasal Cannula Oxygen Flow Rate (L/min) 3 Fraction of Inspired Oxygen (FIO2) 04/16/25 13:54 04/16/25 13:57 04/16/25 14:00 Temperature Temperature Source Pulse Rate 103 H 100 100 Pulse Rate [3] Pulse Rate [6] Pulse Rate [8] Respiratory Rate 30 H 26 H 22 H Respiratory Rate [3] Respiratory Rate [8] Respiratory Effort Respiratory Pattern Blood Pressure 152/84 H 151/83 H Blood Pressure [6] Blood Pressure [8] Blood Pressure Mean 105 96 Blood Pressure Source Blood Pressure Position Blood Pressure Location Pulse Ox 96 97 98 Oxygen Delivery Method Oxygen Flow Rate (L/min) Fraction of Inspired Oxygen (FIO2) 04/16/25 14:01 04/16/25 14:03 04/16/25 14:08 Temperature Temperature Source Pulse Rate 90 128 H Pulse Rate [3] Pulse Rate [6] Pulse Rate [8] Respiratory Rate 12 31 H Respiratory Rate [3] Respiratory Rate [8] Respiratory Effort Respiratory Pattern Tachypnea Blood Pressure 145/81 H 167/97 H Blood Pressure [6] Blood Pressure [8] Blood Pressure Mean 101 112 Blood Pressure Source Blood Pressure Position Blood Pressure Location Pulse Ox 96 97 Oxygen Delivery Method Oxygen Flow Rate (L/min) Fraction of Inspired Oxygen (FIO2) 04/16/25 14:15 04/16/25 14:21 04/16/25 14:24 Temperature Temperature Source Pulse Rate 100 109 H Pulse Rate [3] Pulse Rate [6] Pulse Rate [8] Respiratory Rate 27 H 19 H Respiratory Rate [3] Respiratory Rate [8] Respiratory Effort Respiratory Pattern Blood Pressure 151/75 H 159/96 H Blood Pressure [6] Blood Pressure [8] Blood Pressure Mean 96 114 Blood Pressure Source Blood Pressure Position Blood Pressure Location Pulse Ox 96 89 Oxygen Delivery Method Oxygen Flow Rate (L/min) Fraction of Inspired Oxygen (FIO2) 04/16/25 14:27 04/16/25 14:30 04/16/25 14:33 Temperature Temperature Source Pulse Rate 117 H 121 H Pulse Rate [3] Pulse Rate [6] Pulse Rate [8] Respiratory Rate Respiratory Rate [3] Respiratory Rate [8] Respiratory Effort Respiratory Pattern Blood Pressure 176/104 H 161/125 H Blood Pressure [6] Blood Pressure [8] Blood Pressure Mean 123 137 Blood Pressure Source Blood Pressure Position Blood Pressure Location Pulse Ox 85 84 Oxygen Delivery Method Oxygen Flow Rate (L/min) Fraction of Inspired Oxygen (FIO2) 04/16/25 14:38 04/16/25 14:39 04/16/25 14:42 Temperature Temperature Source Pulse Rate 154 H 95 Pulse Rate [3] Pulse Rate [6] Pulse Rate [8] Respiratory Rate 15 12 Respiratory Rate [3] Respiratory Rate [8] Respiratory Effort Respiratory Pattern Blood Pressure 152/92 H Blood Pressure [6] Blood Pressure [8] Blood Pressure Mean 107 Blood Pressure Source Blood Pressure Position Blood Pressure Location Pulse Ox 80 80 Oxygen Delivery Method Non-Rebreather Non-Rebreather Oxygen Flow Rate (L/min) 15 Fraction of Inspired Oxygen (FIO2) 04/16/25 14:45 04/16/25 14:46 04/16/25 14:48 Temperature Temperature Source Pulse Rate 62 Pulse Rate [3] Pulse Rate [6] 158 H Pulse Rate [8] 140 H Respiratory Rate 14 Respiratory Rate [3] Respiratory Rate [8] 22 H Respiratory Effort Short of Breath Labored Accessory Muscle Use Respiratory Pattern Apnea Blood Pressure 160/127 H Blood Pressure [6] 222/123 H Blood Pressure [8] 166/105 H Blood Pressure Mean 137 Blood Pressure Source Blood Pressure Position Blood Pressure Location Pulse Ox 34 Oxygen Delivery Method Oxygen Flow Rate (L/min) Fraction of Inspired Oxygen (FIO2) 04/16/25 14:48 04/16/25 14:51 04/16/25 14:54 Temperature Temperature Source Pulse Rate 152 H 129 H Pulse Rate [3] Pulse Rate [6] Pulse Rate [8] Respiratory Rate 16 19 H Respiratory Rate [3] Respiratory Rate [8] Respiratory Effort Respiratory Pattern Blood Pressure 191/106 H 222/123 H 166/105 H Blood Pressure [6] Blood Pressure [8] Blood Pressure Mean 129 152 118 Blood Pressure Source Blood Pressure Position Blood Pressure Location Pulse Ox 81 79 Oxygen Delivery Method Oxygen Flow Rate (L/min) Fraction of Inspired Oxygen (FIO2) 04/16/25 14:57 04/16/25 14:59 04/16/25 15:00 Temperature Temperature Source Pulse Rate 131 H 123 H 125 H Pulse Rate [3] Pulse Rate [6] Pulse Rate [8] Respiratory Rate 20 H 17 Respiratory Rate [3] Respiratory Rate [8] Respiratory Effort Respiratory Pattern Blood Pressure 124/97 H 124/97 H 118/85 H Blood Pressure [6] Blood Pressure [8] Blood Pressure Mean 104 96 Blood Pressure Source Blood Pressure Position Blood Pressure Location Pulse Ox 78 92 Oxygen Delivery Method Oxygen Flow Rate (L/min) Fraction of Inspired Oxygen (FIO2) 04/16/25 15:03 04/16/25 15:06 04/16/25 15:09 Temperature Temperature Source Pulse Rate 102 H 118 H Pulse Rate [3] Pulse Rate [6] Pulse Rate [8] Respiratory Rate 20 H 20 H Respiratory Rate [3] Respiratory Rate [8] Respiratory Effort Respiratory Pattern Blood Pressure 113/77 127/87 H 145/109 H Blood Pressure [6] Blood Pressure [8] Blood Pressure Mean 86 98 120 Blood Pressure Source Blood Pressure Position Blood Pressure Location Pulse Ox 98 99 Oxygen Delivery Method Oxygen Flow Rate (L/min) Fraction of Inspired Oxygen (FIO2) 04/16/25 15:47 04/16/25 17:12 04/16/25 17:15 Temperature 97.5 F L Temperature Source Pulse Rate 123 H 104 H 100 Pulse Rate [3] Pulse Rate [6] Pulse Rate [8] Respiratory Rate 15 22 H 22 H Respiratory Rate [3] Respiratory Rate [8] Respiratory Effort Respiratory Pattern Normal Blood Pressure 124/97 H 117/75 Blood Pressure [6] Blood Pressure [8] Blood Pressure Mean 106 89 Blood Pressure Source Monitor Blood Pressure Position Semi-Fowlers Blood Pressure Location Left Arm Pulse Ox 80 92 93 Oxygen Delivery Method Mechanical Ventilator Oxygen Flow Rate (L/min) Fraction of Inspired Oxygen (FIO2) 70 70 04/16/25 17:30 Temperature Temperature Source Pulse Rate 100 Pulse Rate [3] Pulse Rate [6] Pulse Rate [8] Respiratory Rate 22 H Respiratory Rate [3] Respiratory Rate [8] Respiratory Effort Respiratory Pattern Blood Pressure 73/54 L Blood Pressure [6] Blood Pressure [8] Blood Pressure Mean 60 Blood Pressure Source Monitor Blood Pressure Position Semi-Fowlers Blood Pressure Location Left Arm Pulse Ox 93 Oxygen Delivery Method Mechanical Ventilator Oxygen Flow Rate (L/min) Fraction of Inspired Oxygen (FIO2) 70 Weight Weight: 95.2 kg Body Mass Index (BMI) 43.8 Results Lab / Micro Data 04/16/25 13:20 04/16/25 13:20 Labs: Laboratory Results - last 24 hr 04/16/25 13:20: WBC 15.6 H, RBC 4.32, Hgb 15.0, Hct 43.4, MCV 100.5 H, MCH 34.7 H, MCHC 34.6, RDW Std Deviation 45.0 H, RDW Coeff of Kari 12.1, Plt Count 192, MPV 10.7, Immature Gran % (Auto) 0.600, Neut % (Auto) 86.0 H, Lymph % (Auto) 6.3 L, Summers % (Auto) 6.5, Eos % (Auto) 0.3, Baso % (Auto) 0.3, Absolute Neuts (auto) 13.4 H, Absolute Lymphs (auto) 0.99, Nucleated RBC % 0, PT 13.0, INR 1.0, APTT 25.0, Sodium 132 L, Potassium 3.5, Chloride 95 L, Carbon Dioxide 23.8, Anion Gap 13, BUN 25 H, Creatinine 0.85, Estim Creat Clear Calc 53.58, Est GFR (MDRD) Non-Af 69, BUN/Creatinine Ratio 29.5 H, Glucose 139 H, Calcium 8.7, Magnesium 2.0, Troponin T High Sens 184 H*, NT pro BNP II 955, TSH 1.640 04/16/25 14:23: Activated Clotting Time 130 04/16/25 14:37: Activated Clotting Time 302 H 04/16/25 15:25: Activated Clotting Time 274 H 04/16/25 15:35: Activated Clotting Time 268 H ABG Data ABG results: ABG 04/16/25 04/16/25 15:26 16:38 Specimen Type ART ART Sample Site R Radial Not entered pH 7.10 L* 7.25 L Bicarbonate Actual 24.3 23.7 Total CO2 27 25 Base Excess -5 L -4 L O2 Saturation 87 L 94 L O2 % 100.0 ABG pCO2 78.3 H* 53.9 H ABG pO2 74 L 82 Remy Test Positive Respiration Rate 20 O2 Delivery Device ET Tube Not entered Vent Mode AC Not entered Tidal Volume 400.0 POC PEEP 5 Crit Call To/Read Back Yes Blood Gas Notified Whom BRITTNY Blood Gas Notified Time 15:28:50 Imaging Radiology Impression Chest X-Ray 04/16/25 13:54 IMPRESSION: Pulmonary findings as above. Reading Location: [id number] Chest CTA 04/16/25 14:06 IMPRESSION: No evidence of pulmonary embolism. Findings suggestive of mild vascular congestion with scarring at the lung bases. Reading Location: [facility] Chest X-Ray 04/16/25 14:53 IMPRESSION: Findings suggestive of pulmonary edema. This has progressed as compared to prior study. The tip of the endotracheal tube is at 3.7 cm proximal the agnes. The tip of the orogastric tube is below the left hemidiaphragm. Reading Location: [facility] Assessment & Plan Assessment/Plan (1) Cardiac arrest: (2) Flash pulmonary edema: (3) Respiratory failure: (4) Polymorphic ventricular tachycardia: (5) CAD (coronary artery disease): PLAN: Plan # Cardiac arrest secondary to LCX thrombus - Patient with pulseless V. tach arrest in the ED requiring defibrillation and achieved ROSC and subsequent respiratory arrest with PEA - Subsequently taken emergently to the [facility] on a heparin drip, Amio drip and nitroglycerin drip - In [facility] ARCHITECT INTERN Mid LAD, 100% mid LCX with thrombus, 50-60% mid RCA and successful PTCA/JEREMIE to mid LCX - Recommendation for aspirin indefinitely and P2 Y12 for at least 6 months - Will obtain echocardiogram -Cardiology on board -Will consult blasting entryman - Shortly after arriving to ICU patient with systolics in 70s to 80s, evaluated patient at bedside at 1800 and blood pressure had come up to 108 without intervention however levo ordered by blasting entryman and will be on standby #CAD - In [facility] ARCHITECT INTERN Mid LAD, 100% mid LCX with thrombus, 50-60% mid RCA and successful PTCA/JEREMIE to mid LCX - Recommendation for aspirin indefinitely and P2 Y12 for at least 6 months -Patient placed on aspirin and Brilinta in the ED as well as atorvastatin, losartan, Coreg -Lipid profile in a.m. # Acute hypoxic hypercapnic respiratory failure secondary to flash pulmonary edema +/- aspiration -Post first ROSC patient ended up vomiting and was 87% on room air, she was placed on Airvo however within a matter of minutes she was 60% on high oxygen requirements and required intubation -Patient with frothy pink secretions during intubation and repeat chest x-ray showed increased pulmonary edema -Blood pressure the time was also with a systolic over 200 -Suspect flash pulmonary edema but also there was strong concern for aspiration component -Will cover with unasyn given clinical status and high suspicion -On ABG patient actually also was hypercapnic with a pCO2 of 78 and a pH of 7.1 -proBNP was 955 in the ED however this was before her acute respiratory decompensation -Patient presently intubated -Copyman consult -Patient was placed on nitro drip prior to going to the [facility] and given Lasix -Nitro drip DC'd, 40 IV twice daily Lasix ordered with potassium -Started on Coreg and losartan -Order echocardiogram -Continue IV Lasix -Daily weights, I's and O's # A-fib with RVR -Post ROSC the second time patient went into A-fib with RVR and was started on amio drip in addition to the heparin and nitro drips -Unclear if there could have been longer history of A-fib or if this is all new after cardiac event -Patient taken off of heparin and nitro by cardiology and continued on Amio infusion -TSH was within normal limits -Will monitor on telemetry -Echocardiogram as above #Morbid obesity -BMI documented as 43.9 kg/m? at time of admission -Complicates treatment, prognosis, outcomes -Recommend weight loss and lifestyle changes #DVT ppx: SCDs Diana Mayers MD Time spent in the patient's overall evaluation, decision-making process, review of diagnostic data, adjustment of management, discussion with other providers, nursing and ancillary staff involved in patient's care documentation, 81 Minutes Charges/Coding Visit Charges Inpatient E&M: 14099 Init Hosp L3
[2025-04-16] MEDS: 0.9% Normal Saline (1000mL) 1,000 ML 75 ML IV (18:16)
[2025-04-16] MEDS: Ampicillin/Sulbactam 3 GM in 0.9% Normal Saline (100mL MB+) 100 ML IV ×2 (18:48→23:15)
[2025-04-16] MEDS: Amiodarone 360 MG in Dextrose 5% Viaflo Bag 192.8 ML 16.7 MG CONT INF (20:23)
[2025-04-16 20:39] LABS: Mucous, Urine 0 SEEN /hpf (<or=2+)
[2025-04-16 20:43] LABS: Color, Urine Straw (Yellow); Glucose, Dipstick Normal (Normal); Ketone-Dipstick Negative (Negative); Leukocyte Esterase-Dipstick Negative /ul (Negative); Nitrite-Dipstick Negative (Negative); Occult Blood-Urine 25 /ul (Negative); Protein-Dipstick 15 mg/dl (Negative); Specific Gravity, Urine 1.015 (1.002-1.030); Urine Bilirubin Dipstick Negative (Negative)
[2025-04-16 21:03] LABS: Red Blood Cells-Urine 0-5 SEEN /hpf (0-5); Squamous Epithelial Cells - UA 0-5 SEEN /hpf (5-10)
[2025-04-16] MEDS: 0.9% Saline Lock 10 ML Syringe IV (21:22)
[2025-04-16] MEDS: Chlorhexidine 15 ML PO (21:22)
[2025-04-16] MEDS: TICAGRELOR 90 MG TABLET PO (21:23)
[2025-04-16 22:01] LABS: Troponin T High Sens 2 HR 2499 ng/L (<=14)
[2025-04-16] MEDS: fentaNYL drip 100 ML 2.5 MCG CONT INF (22:37)
[2025-04-17] VITALS (55 sets, daily range): BP systolic 50–144; BP diastolic 35–68; PULSE 61–87; RESP 14–22; TEMP 37.2–38.3; O2SAT 96–100; BMI 42.7
--- NOTE | 2025-04-17 01:01 | RAD_ITS ---
PROCEDURE: ABDOMEN SINGLE VIEW 04/17/2025 REASON FOR EXAM: VERIFY OG PLACEMENT TECHNIQUE: Procedure Code: RADABD Modality: DX Procedure: ABDOMEN SINGLE VIEW COMPARISON: 04/16/2025. FINDINGS: Enteric feeding tube is in good position with its tip at the level of the gastric body. Endotracheal tube is in good position. Unremarkable gas pattern in the visualized upper abdomen. Moderate diffuse spondylosis. RAD/Abdomen Single View IMPRESSION: Enteric feeding tube is in good position with its tip at the level of the gastr ic body. Endotracheal tube is in good position. Unremarkable gas pattern in the visualized upper abdomen. [facility]
[2025-04-17] MEDS: dexMEDEtomidine 400 MCG in 0.9% Normal Saline (100mL Bag) 96 ML 11.9 MCG CONT INF ×2 (01:15→08:15)
--- NOTE | 2025-04-17 01:20 | RAD_ITS ---
PROCEDURE: CHEST 1 VIEW (PORTABLE) 04/17/2025 REASON FOR EXAM: CONCERN FOR ASPIRATION TECHNIQUE: Frontal view of the chest. COMPARISON: 04/16/2025. FINDINGS: Decreased pulmonary congestion. Endotracheal tube is in good position. Enteric feeding tube is in good position with its tip extending below the level of the left hemidiaphragm. There is no demonstrated pleural abnormality. Enlarged cardiac silhouette. Normal mediastinum and susan. Normal visualized pulmonary arteries. Atheromatous plaques of the visualized aortic arch and descending thoracic aorta. Diffuse spondylosis of the visualized thoracic spine. Normal visualized ribs, clavicles. Degenerative joint disease. There is no demonstrated abnormality of the visualized soft tissue structures of the upper abdomen. RAD/Chest 1 View (Portable) IMPRESSION: Decreased pulmonary congestion. Endotracheal tube is in good position. Enteric feeding tube is in good position with its tip extending below the level of the left hemidiaphragm. There is no demonstrated pleural abnormality. Enlarged cardiac silhouette. Reading Location: [facility]
[2025-04-17] MEDS: Norepinephrine 8 MG in 0.9% Normal Saline (250mL Bag) 242 ML 9.4 MG CONT INF (02:30)
[2025-04-17] MEDS: Piperacil/Tazobactam 3.375 GM in 0.9% Normal Saline (50mL MB+) 50 ML IV (03:01)
[2025-04-17] MEDS: Ampicillin/Sulbactam 3 GM in 0.9% Normal Saline (100mL MB+) 100 ML IV ×4 (06:02→23:42)
[2025-04-17] MEDS: 0.9% Saline Lock 10 ML Syringe IV ×3 (06:02→22:11)
[2025-04-17 06:33] LABS: Hematocrit 42.4 % (37-47); Hemoglobin 15.3 g/dL (12.0-15.0); Immature Granulocytes Count 0.180 X10^3/uL (0.0-0.0); Mean Corp Hgb Conc 36.1 g/dL (32-36); Mean Corpuscular Volume 97.2 fL (81-99); Mean Platelet Vol. 10.4 fl (6.2-12.0); NRBC Flagged by Analyzer 0 % (0-5); POSITIVE DIFFERENTIAL YES; Platelet Count 260 K/mm3 (150-450); RBC Distribution Width CV 12.3 % (11.6-14.6); RBC Distribution Width SD 44.1 fl (35.1-43.9); Red Blood Count 4.36 M/mm3 (4.2-5.4); White Blood Count 23.0 K/mm3 (4.4-11.0)
[2025-04-17 06:42] LABS: Differential Indicated SCAN CRITERIA MET
[2025-04-17 06:47] LABS: Cholesterol 159 mg/dL (<=200); Low Density Lipoprotein Calc. 73 mg/dL; Triglycerides 138 mg/dL; Very Low Density Lipoprotein 28 mg/dL (5-40); cholesterol:hdl ratio screen 2.70
[2025-04-17] MEDS: Amiodarone 360 MG in Dextrose 5% Viaflo Bag 192.8 ML 16.7 MG CONT INF (06:49)
[2025-04-17 07:05] LABS: AST(SGOT) 375 U/L (<=31); Alanine Aminotransfer ALT/SGPT 76 U/L (<=34); Albumin, Serum 3.1 g/dL (3.4-4.8); Alkaline Phosphatase 62 U/L (35-104); Anion Gap 15 (5-15); BUN 28 mg/dL (4-19); BUN/Creat Ratio 22.0 RATIO (10-20); Calcium,Total 7.8 mg/dL (7.6-11.0); Carbon Dioxide 23.1 mmol/L (21.0-32.0); Chloride 96 mmol/L (98-108); Estimated Creatinine Clearance 34.95 ml/min (50-250); Globulin 2.7 g/dL (2.2-4.2); Glucose 190 mg/dL (70-99); Potassium 4.1 mmol/L (3.3-5.1)
--- NOTE | 2025-04-17 07:10 | PCM.PN.HOSP ---
Reason for Visit Chief Complaint: Arm and jaw pain Subjective Subjective Still on the vent. Objective Data Objective Data Vital Signs: Vital Signs Temp Pulse Resp BP Pulse Ox O2 Del Method O2 Flow Rate 38.1 C H 86 22 H 103/53 L 97 Mechanical Ventilator 15 04/17/25 06:00 04/17/25 06:00 04/17/25 06:00 04/17/25 06:00 04/17/25 06:00 04/17/25 06:00 04/16/25 14:39 FiO2 40 04/17/25 06:00 Oxygen Flow Rate (L/min) 15 Oxygen Delivery Method Mechanical Ventilator Weight: 92.3 kg Body Mass Index (BMI) 42.7 Intake & Output: Intake and Output for Last 24 Hours 04/15/25 04/16/25 04/17/25 23:59 23:59 23:59 Intake Total 1526.61 / 1529.11 1136.13 / 1136.13 Output Total 550 / 1450 1430 / 1430 Balance 976.61 / 79.11 -293.87 / -293.87 Lab / Micro Data 04/17/25 06:08 04/17/25 06:08 Labs: Laboratory Results - last 24 hr 04/16/25 13:20: WBC 15.6 H, RBC 4.32, Hgb 15.0, Hct 43.4, MCV 100.5 H, MCH 34.7 H, MCHC 34.6, RDW Std Deviation 45.0 H, RDW Coeff of Kari 12.1, Plt Count 192, MPV 10.7, Immature Gran % (Auto) 0.600, Neut % (Auto) 86.0 H, Lymph % (Auto) 6.3 L, Parker % (Auto) 6.5, Eos % (Auto) 0.3, Baso % (Auto) 0.3, Absolute Neuts (auto) 13.4 H, Absolute Lymphs (auto) 0.99, Nucleated RBC % 0, PT 13.0, INR 1.0, APTT 25.0, Sodium 132 L, Potassium 3.5, Chloride 95 L, Carbon Dioxide 23.8, Anion Gap 13, BUN 25 H, Creatinine 0.85, Estim Creat Clear Calc 53.58, Est GFR (MDRD) Non-Af 69, BUN/Creatinine Ratio 29.5 H, Glucose 139 H, Calcium 8.7, Magnesium 2.0, Troponin T High Sens 184 H*, NT pro BNP II 955, TSH 1.640 04/16/25 14:23: Activated Clotting Time 130 04/16/25 14:37: Activated Clotting Time 302 H 04/16/25 15:25: Activated Clotting Time 274 H 04/16/25 15:35: Activated Clotting Time 268 H 04/16/25 20:31: Urine Color Straw, Urine Clarity Clear, Urine pH 6.0, Ur Specific [place] 1.015, Urine Protein 15 H, Urine Glucose (UA) Normal, Urine Ketones Negative, Urine Occult Blood 25 H, Urine Nitrite Negative, Urine Bilirubin Negative, Urine Urobilinogen Normal, Ur Leukocyte Esterase Negative, Urine RBC 0-5 SEEN, Urine WBC 0-5 SEEN, Ur Squamous Epith Cells 0-5 SEEN, Urine Bacteria 0 SEEN, Urine Mucus 0 SEEN 04/16/25 21:15: Troponin T Hi Sens 2 Hr 2499 H* 04/17/25 06:08: WBC 23.0 H, RBC 4.36, Hgb 15.3 H, Hct 42.4, MCV 97.2, MCH 35.1 H, MCHC 36.1 H, RDW Std Deviation 44.1 H, RDW Coeff of Kari 12.3, Plt Count 260, MPV 10.4, Immature Gran % (Auto) 0.800, Neut % (Auto) 85.6 H, Lymph % (Auto) 5.7 L, Parker % (Auto) 7.6, Eos % (Auto) 0.0, Baso % (Auto) 0.3, Absolute Neuts (auto) 19.7 H, Absolute Lymphs (auto) 1.32, Nucleated RBC % 0, Sodium 134, Potassium 4.1, Chloride 96 L, Carbon Dioxide 23.1, Anion Gap 15, BUN 28 H, Creatinine 1.28 H, Estim Creat Clear Calc 34.95 L, Est GFR (MDRD) Non-Af 42 L, BUN/Creatinine Ratio 22.0 H, Glucose 190 H, Calcium 7.8, Total Bilirubin 0.76, AST 375 H, ALT 76 H, Alkaline Phosphatase 62, Total Protein 5.9, Albumin 3.1 L, Globulin 2.7, Albumin/Globulin Ratio 1.2, Triglycerides 138, Cholesterol 159, LDL Cholesterol, Calc 73, VLDL Cholesterol 28, HDL Cholesterol 59, Cholesterol/HDL Ratio 2.70 ABG Data ABG results: ABG 04/16/25 04/16/25 15:26 16:38 Specimen Type ART ART Sample Site R Radial Not entered pH 7.10 L* 7.25 L Bicarbonate Actual 24.3 23.7 Total CO2 27 25 Base Excess -5 L -4 L O2 Saturation 87 L 94 L O2 % 100.0 ABG pCO2 78.3 H* 53.9 H ABG pO2 74 L 82 Remy Test Positive Respiration Rate 20 O2 Delivery Device ET Tube Not entered Vent Mode AC Not entered Tidal Volume 400.0 POC PEEP 5 Crit Call To/Read Back Yes Blood Gas Notified Whom BRITTNY Blood Gas Notified Time 15:28:50 Radiography Diagnostic Testing: Radiology Impression Chest X-Ray 04/16/25 13:54 IMPRESSION: Pulmonary findings as above. Reading Location: [facility] Chest CTA 04/16/25 14:06 IMPRESSION: No evidence of pulmonary embolism. Findings suggestive of mild vascular congestion with scarring at the lung bases. Reading Location: [facility] Chest X-Ray 04/16/25 14:53 IMPRESSION: Findings suggestive of pulmonary edema. This has progressed as compared to prior study. The tip of the endotracheal tube is at 3.7 cm proximal the agnes. The tip of the orogastric tube is below the left hemidiaphragm. Reading Location: [facility] X-Ray 04/17/25 01:01 IMPRESSION: Enteric feeding tube is in good position with its tip at the level of the gastric body. Endotracheal tube is in good position. Unremarkable gas pattern in the visualized upper abdomen. Reading [facility] Chest X-Ray 04/17/25 01:20 IMPRESSION: Decreased pulmonary congestion. Endotracheal tube is in good position. Enteric feeding tube is in good position with its tip extending below the level of the left hemidiaphragm. There is no demonstrated pleural abnormality. Enlarged cardiac silhouette. Reading Location: [place] [id number] Physical Exam Const Constitutional Narrative: intubated and sedated. HEENT head/scalp atraumatic and moist oral mucous membranes Resp normal respiratory effort and no retractions Resp Narrative: coarse breath sounds bilaterally. Cardio regular rate and regular rhythm GI normal to inspection, nondistended, normoactive bowel sounds, soft to palpation, non-tender and non-distended Extremity normal to inspection Assessment & Plan Assessment/Plan (1) Cardiac arrest: (2) Flash pulmonary edema: (3) Respiratory failure: (4) Polymorphic ventricular tachycardia: (5) CAD (coronary artery disease): PLAN: Plan Cardiac arrest secondary to LCX thrombus Patient with pulseless V. tach arrest in the ED requiring defibrillation and achieved ROSC and subsequent respiratory arrest with PEA Subsequently taken emergently to the Contract Clerk on a heparin drip, Amio drip and nitroglycerin drip In Contract Clerk [employer]OR OF [employer] OFF[employer] Mid LAD, 100% mid LCX with thrombus, 50-60% mid RCA and successful PTCA/JEREMIE to mid LCX Recommendation for aspirin indefinitely and P2 Y12 for at least 6 months Will obtain echocardiogram Cardiology following. Acute hypoxic hypercapnic respiratory failure secondary to flash pulmonary edema +/- aspiration Post first ROSC patient ended up vomiting and was 87% on room air, she was placed on Airvo however within a matter of minutes she was 60% on high oxygen requirements and required intubation Patient with frothy pink secretions during intubation and repeat chest x-ray showed increased pulmonary edema Commercial Leasing Agent consult Patient was placed on nitro drip prior to going to the Contract Clerk and given Lasix Nitro drip DC'd, 40 IV twice daily Lasix ordered with potassium Coreg and losartan as BP allows. Continue IV Lasix Daily weights, I's and O's on amp/SB given concerns for aspiration. Cardiogenic shock 2/2 CPA on norepinephrine A-fib with RVR Post ROSC the second time patient went into A-fib with RVR and was started on amio drip in addition to the heparin Unclear if there could have been longer history of A-fib or if this is all new after cardiac event Patient taken off of heparin and nitro by cardiology and continued on Amio infusion TSH was within normal limits Will monitor on telemetry Chronic medical conditions: obesity class III: BMI documented as 43.9 kg/m? at time of admission. Complicates treatment, prognosis, outcomes. DVT ppx: Brianna CROWDER pt's daughter and granddaughter. Charges/Coding Visit Charges Inpatient E&M: 14514 Subs Hosp L2
--- NOTE | 2025-04-17 07:36 | EX.PCM.CONCC ---
Assessment & Plan Assessment/Plan (1) Respiratory failure: QUALIFIERS: Chronicity: acute Respiratory failure complication: hypoxia Qualified Code(s): J96.01 - Acute respiratory failure with hypoxia (2) Cardiac arrest: PLAN: Plan RECOMMENDATIONS: 1. Continue assist-control mode of mechanical ventilation. Wean FiO2 and PEEP as tolerated. 2. Obtain follow-up ABG this morning with further ventilator optimization as needed. 3. Continue to wean Levophed to maintain a mean arterial pressure at or above 65 mmHg. 4. Continue current sedation regimen. Goal to maintain a RASS of -1 to 1. 5. Continue empiric antimicrobials. 6. Continue appropriate ICU prophylaxis. 7. Tentative plans to begin spontaneous awakening and breathing trials tomorrow. IMPRESSIONS: 1. Acute respiratory failure with hypoxemia and hypercapnia status post cardiac arrest The patient presented to the hospital in cardiac arrest with successful ROSC. She underwent drug-eluting stent placement to the circumflex and was intubated as a consequence of the aforementioned. CTA chest ruled out pulmonary embolism. Given that the patient has had several episodes of emesis around her endotracheal tube, we will plan to continue empiric antibiotics to cover for possible aspiration, despite negative chest x-ray. Recommend continuing current supportive care per cardiology recommendations, with tentative plan to begin spontaneous awakening and breathing trials tomorrow morning. Neurologically, the patient appears to be intact. 2. Coronary artery disease/atrial fibrillation with RVR/morbid obesity Complicates care, management, recovery and prognosis. Continue supportive measures as noted above. PT/OT to work with the patient once medically stable. Hold on tube feeding initiation today. TIME: 38 minutes of critical care time, independent of procedures, was spent addressing the patient's acute respiratory failure with hypoxemia and hypercapnia status post cardiac arrest, review of all data and collaboration with the care team. HPI Consult Data Date of Consult: 04/17/25 HPI Narrative Reason for Consultation: Respiratory failure HPI Narrative: The patient is an 79-year-old female, with a history as outlined below, who presented to the emergency department via EMS on April 16 after she developed back pain with radiation into both arms. History pertinent to her hospitalization was obtained primarily via chart review, as the patient is currently intubated and mechanically ventilated. According to documentation, shortly after arrival to the emergency department, the patient went into pulseless V. tach and a CODE BLUE was initiated. ROSC was ultimately achieved with ACLS. EKG demonstrated normal sinus rhythm with nonspecific changes. The patient was subsequently intubated as a consequence of the aforementioned. The patient was seen in consultation by cardiology and ultimately taken to the cardiac catheterization lab where she underwent coronary angiography with successful drug-eluting stent placement to the mid LCx. On presentation, the patient was noted to be afebrile and hemodynamically stable. Initial laboratory evaluation revealed a white blood cell count of 15,000. Hemoglobin and platelet count were stable. ABG post intubation was notable for a pH of 7.1 with a pCO2 of 78 and pO2 of 74. Chemistry profile was unremarkable. Troponin was elevated at 184. Urine analysis was unremarkable. CTA chest showed no evidence for pulmonary embolism but did demonstrate pulmonary vascular congestion. Overnight, the patient was maintained on assist-control mode of mechanical ventilation. FiO2 requirement is currently 40%. The patient is currently sedated on fentanyl and Precedex. She does have a Levophed requirement of 10 mcg/min. The patient was started empirically on antimicrobials yesterday. Her white blood cell count is elevated at 23,000. Nursing staff did report 2 episodes of emesis around her endotracheal tube overnight. [facility] Medical History (Updated 04/17/25 @ 08:[address] Rodney Cedeno MD) Acid reflux Constipation SOB (shortness of breath) Anxiety Depression Hypertension Arthritis Fatigue Home Medications ?Medication ?Instructions ?Recorded ?Last Taken ?Type amlodipine 5 mg tablet (Norvasc) 5 mg PO DAILY 03/31/18 Unknown History atenolol 50 mg tablet 100 mg PO DAILY 03/31/18 Unknown History psyllium husk 0.4 gram capsule 0.4 g PO DAILY 03/31/18 Unknown History (Metamucil) sennosides 8.6 mg-docusate sodium 2 tab PO DAILY PRN 03/31/18 Unknown History 50 mg tablet (Senna with Docusate Sodium) Allergy/AdvReac Type Severity Reaction Status Date / Time No Known Allergies Allergy Verified 04/16/25 13:11 Family History Mother Arthritis Dementia Father Heart disease Myocardial infarction Surgical History Hx of tonsillectomy History of deviated nasal septum Hx of LASIK Hx of bilateral cataract extraction Social History (Reviewed 04/16/25 @ 17:50 by Coral Hillman Smoking Status: Never smoker second hand exposure: No alcohol intake: never substance use type: does not use caffeine: Yes what type of physical activity do you participate in: none frequency: does not exercise seatbelt use: always ROS Review of Systems ROS Unobtainable: due to endotracheal tube Physical Exam Const Constitutional Narrative: Intubated, sedated and mechanically ventilated. No ventilator dyssynchrony noted. HEENT normocephalic and head/scalp atraumatic Mouth: endotracheal tube in place and OG tube in place Eyes EOMs intact bilaterally and conjunctivae normal Neck supple General: trachea midline Chest inspection of chest normal Resp normal respiratory effort Auscultation: Negative for rales, rhonchi or wheezes Cardio regular rate and regular rhythm GI normal to inspection, nondistended, normoactive bowel sounds Extremity General Extremity: edema bilateral lower extremity; Negative for clubbing Skin no rashes or lesions noted Neuro Sensorium / Orientation: sedated on vent Lab / Micro Data 04/17/25 06:08 04/17/25 06:08 Labs: Laboratory Results - last 24 hr 04/16/25 13:20: WBC 15.6 H, RBC 4.32, Hgb 15.0, Hct 43.4, MCV 100.5 H, MCH 34.7 H, MCHC 34.6, RDW Std Deviation 45.0 H, RDW Coeff of Kari 12.1, Plt Count 192, MPV 10.7, Immature Gran % (Auto) 0.600, Neut % (Auto) 86.0 H, Lymph % (Auto) 6.3 L, Kings % (Auto) 6.5, Eos % (Auto) 0.3, Baso % (Auto) 0.3, Absolute Neuts (auto) 13.4 H, Absolute Lymphs (auto) 0.99, Nucleated RBC % 0, PT 13.0, INR 1.0, APTT 25.0, Sodium 132 L, Potassium 3.5, Chloride 95 L, Carbon Dioxide 23.8, Anion Gap 13, BUN 25 H, Creatinine 0.85, Estim Creat Clear Calc 53.58, Est GFR (MDRD) Non-Af 69, BUN/Creatinine Ratio 29.5 H, Glucose 139 H, Calcium 8.7, Magnesium 2.0, Troponin T High Sens 184 H*, NT pro BNP II 955, TSH 1.640 04/16/25 14:23: Activated Clotting Time 130 04/16/25 14:37: Activated Clotting Time 302 H 04/16/25 15:25: Activated Clotting Time 274 H 04/16/25 15:35: Activated Clotting Time 268 H 04/16/25 20:31: Urine Color Straw, Urine Clarity Clear, Urine pH 6.0, Ur Specific [place] 1.015, Urine Protein 15 H, Urine Glucose (UA) Normal, Urine Ketones Negative, Urine Occult Blood 25 H, Urine Nitrite Negative, Urine Bilirubin Negative, Urine Urobilinogen Normal, Ur Leukocyte Esterase Negative, Urine RBC 0-5 SEEN, Urine WBC 0-5 SEEN, Ur Squamous Epith Cells 0-5 SEEN, Urine Bacteria 0 SEEN, Urine Mucus 0 SEEN 04/16/25 21:15: Troponin T Hi Sens 2 Hr 2499 H* 04/17/25 06:08: WBC 23.0 H, RBC 4.36, Hgb 15.3 H, Hct 42.4, MCV 97.2, MCH 35.1 H, MCHC 36.1 H, RDW Std Deviation 44.1 H, RDW Coeff of Kari 12.3, Plt Count 260, MPV 10.4, Immature Gran % (Auto) 0.800, Neut % (Auto) 85.6 H, Lymph % (Auto) 5.7 L, Kings % (Auto) 7.6, Eos % (Auto) 0.0, Baso % (Auto) 0.3, Absolute Neuts (auto) 19.7 H, Absolute Lymphs (auto) 1.32, Nucleated RBC % 0, Diff Path Review Not Reportable, Sodium 134, Potassium 4.1, Chloride 96 L, Carbon Dioxide 23.1, Anion Gap 15, BUN 28 H, Creatinine 1.28 H, Estim Creat Clear Calc 34.95 L, Est GFR (MDRD) Non-Af 42 L, BUN/Creatinine Ratio 22.0 H, Glucose 190 H, Calcium 7.8, Total Bilirubin 0.76, AST 375 H, ALT 76 H, Alkaline Phosphatase 62, Total Protein 5.9, Albumin 3.1 L, Globulin 2.7, Albumin/Globulin Ratio 1.2, Triglycerides 138, Cholesterol 159, LDL Cholesterol, Calc 73, VLDL Cholesterol 28, HDL Cholesterol 59, Cholesterol/HDL Ratio 2.70 ABG Data ABG results: ABG 04/16/25 04/16/25 15:26 16:38 Specimen Type ART ART Sample Site R Radial Not entered pH 7.10 L* 7.25 L Bicarbonate Actual 24.3 23.7 Total CO2 27 25 Base Excess -5 L -4 L O2 Saturation 87 L 94 L O2 % 100.0 ABG pCO2 78.3 H* 53.9 H ABG pO2 74 L 82 Remy Test Positive Respiration Rate 20 O2 Delivery Device ET Tube Not entered Vent Mode AC Not entered Tidal Volume 400.0 POC PEEP 5 Crit Call To/Read Back Yes Blood Gas Notified Whom BRITTNY Blood Gas Notified Time 15:28:50 Imaging Radiology Impression Chest X-Ray 04/16/25 13:54 IMPRESSION: Pulmonary findings as above. Reading Location: [facility] Chest CTA 04/16/25 14:06 IMPRESSION: No evidence of pulmonary embolism. Findings suggestive of mild vascular congestion with scarring at the lung bases. Reading Location: [facility]- Chest X-Ray 04/16/25 14:53 IMPRESSION: Findings suggestive of pulmonary edema. This has progressed as compared to prior study. The tip of the endotracheal tube is at 3.7 cm proximal the agnes. The tip of the orogastric tube is below the left hemidiaphragm. Reading Location: [facility] X-Ray 04/17/25 01:01 IMPRESSION: Enteric feeding tube is in good position with its tip at the level of the gastric body. Endotracheal tube is in good position. Unremarkable gas pattern in the visualized upper abdomen. [facility] Chest X-Ray 04/17/25 01:20 IMPRESSION: Decreased pulmonary congestion. Endotracheal tube is in good position. Enteric feeding tube is in good position with its tip extending below the level of the left hemidiaphragm. There is no demonstrated pleural abnormality. Enlarged cardiac silhouette. [facility] Charges/Coding Procedures Hospitalists Procedures: [id number] Critical Care 1st Hr
[2025-04-17] MEDS: Chlorhexidine 15 ML PO ×2 (07:41→21:54)
--- NOTE | 2025-04-17 08:03 | PCM.PN.CARD ---
Subjective Subjective Patient remains intubated and sedated. QT interval on the ECG this morning is significantly increased. There is no significant ectopy documented. Electrolytes are stable. The patient is febrile 100.5. Objective Data Vital Signs: Vital Signs Temp Pulse Resp BP Pulse Ox O2 Del Method O2 Flow Rate 100.5 F H 68 22 H 103/53 L 98 Mechanical Ventilator 15 04/17/25 06:00 04/17/25 07:16 04/17/25 07:16 04/17/25 06:00 04/17/25 07:16 04/17/25 06:00 04/16/25 14:39 FiO2 40 04/17/25 07:16 Oxygen Flow Rate (L/min) 15 Oxygen Delivery Method Mechanical Ventilator Weight: 203 lb 7.787 oz Body Mass Index (BMI) 42.7 Intake & Output: Intake and Output for Last 24 Hours 04/15/25 04/16/25 04/17/25 23:59 23:59 23:59 Intake Total 1526.61 / 1529.11 1136.13 / 1136.13 Output Total 550 / 1450 1430 / 1430 Balance 976.61 / 79.11 -293.87 / -293.87 Lab / Micro Data Attestation: I reviewed the patient's lab results. 04/17/25 06:08 04/17/25 06:08 Labs: Laboratory Results - last 24 hr 04/16/25 13:20: WBC 15.6 H, RBC 4.32, Hgb 15.0, Hct 43.4, MCV 100.5 H, MCH 34.7 H, MCHC 34.6, RDW Std Deviation 45.0 H, RDW Coeff of Kari 12.1, Plt Count 192, MPV 10.7, Immature Gran % (Auto) 0.600, Neut % (Auto) 86.0 H, Lymph % (Auto) 6.3 L, [place] % (Auto) 6.5, Eos % (Auto) 0.3, Baso % (Auto) 0.3, Absolute Neuts (auto) 13.4 H, Absolute Lymphs (auto) 0.99, Nucleated RBC % 0, PT 13.0, INR 1.0, APTT 25.0, Sodium 132 L, Potassium 3.5, Chloride 95 L, Carbon Dioxide 23.8, Anion Gap 13, BUN 25 H, Creatinine 0.85, Estim Creat Clear Calc 53.58, Est GFR (MDRD) Non-Af 69, BUN/Creatinine Ratio 29.5 H, Glucose 139 H, Calcium 8.7, Magnesium 2.0, Troponin T High Sens 184 H*, NT pro BNP II 955, TSH 1.640 04/16/25 14:23: Activated Clotting Time 130 04/16/25 14:37: Activated Clotting Time 302 H 04/16/25 15:25: Activated Clotting Time 274 H 04/16/25 15:35: Activated Clotting Time 268 H 04/16/25 20:31: Urine Color Straw, Urine Clarity Clear, Urine pH 6.0, Ur Specific [place] 1.015, Urine Protein 15 H, Urine Glucose (UA) Normal, Urine Ketones Negative, Urine Occult Blood 25 H, Urine Nitrite Negative, Urine Bilirubin Negative, Urine Urobilinogen Normal, Ur Leukocyte Esterase Negative, Urine RBC 0-5 SEEN, Urine WBC 0-5 SEEN, Ur Squamous Epith Cells 0-5 SEEN, Urine Bacteria 0 SEEN, Urine Mucus 0 SEEN 04/16/25 21:15: Troponin T Hi Sens 2 Hr 2499 H* 04/17/25 06:08: WBC 23.0 H, RBC 4.36, Hgb 15.3 H, Hct 42.4, MCV 97.2, MCH 35.1 H, MCHC 36.1 H, RDW Std Deviation 44.1 H, RDW Coeff of Kari 12.3, Plt Count 260, MPV 10.4, Immature Gran % (Auto) 0.800, Neut % (Auto) 85.6 H, Lymph % (Auto) 5.7 L, [place] % (Auto) 7.6, Eos % (Auto) 0.0, Baso % (Auto) 0.3, Absolute Neuts (auto) 19.7 H, Absolute Lymphs (auto) 1.32, Nucleated RBC % 0, Diff Path Review Not Reportable, Sodium 134, Potassium 4.1, Chloride 96 L, Carbon Dioxide 23.1, Anion Gap 15, BUN 28 H, Creatinine 1.28 H, Estim Creat Clear Calc 34.95 L, Est GFR (MDRD) Non-Af 42 L, BUN/Creatinine Ratio 22.0 H, Glucose 190 H, Calcium 7.8, Total Bilirubin 0.76, AST 375 H, ALT 76 H, Alkaline Phosphatase 62, Total Protein 5.9, Albumin 3.1 L, Globulin 2.7, Albumin/Globulin Ratio 1.2, Triglycerides 138, Cholesterol 159, LDL Cholesterol, Calc 73, VLDL Cholesterol 28, HDL Cholesterol 59, Cholesterol/HDL Ratio 2.70 ABG Data ABG results: ABG 04/16/25 04/16/25 15:26 16:38 Specimen Type ART ART Sample Site R Radial Not entered pH 7.10 L* 7.25 L Bicarbonate Actual 24.3 23.7 Total CO2 27 25 Base Excess -5 L -4 L O2 Saturation 87 L 94 L O2 % 100.0 ABG pCO2 78.3 H* 53.9 H ABG pO2 74 L 82 Remy Test Positive Respiration Rate 20 O2 Delivery Device ET Tube Not entered Vent Mode AC Not entered Tidal Volume 400.0 POC PEEP 5 Crit Call To/Read Back Yes Blood Gas Notified Whom BRITTNY Blood Gas Notified Time 15:28:50 Rhythm Strip Rhythm Strip: Sinus Rhythm Rate: 70 Ectopy: - (Prolonged QT interval) Cardiology Labs/Tests 04/16/25 13:20: WBC 15.6 H, RBC 4.32, Hgb 15.0, Hct 43.4, MCV 100.5 H, MCH 34.7 H, MCHC 34.6, Plt Count 192, MPV 10.7, Immature Gran % (Auto) 0.600, Neut % (Auto) 86.0 H, Lymph % (Auto) 6.3 L, [place] % (Auto) 6.5, Eos % (Auto) 0.3, Baso % (Auto) 0.3, Absolute Neuts (auto) 13.4 H, Nucleated RBC % 0, PT 13.0, INR 1.0, APTT 25.0, Sodium 132 L, Potassium 3.5, Chloride 95 L, Carbon Dioxide 23.8, Anion Gap 13, BUN 25 H, Creatinine 0.85, Est GFR (MDRD) Non-Af 69, BUN/Creatinine Ratio 29.5 H, Glucose 139 H, Calcium 8.7, Magnesium 2.0 04/16/25 15:26: pH 7.10 L*, Bicarbonate Actual 24.3, Base Excess -5 L, O2 Saturation 87 L, ABG pCO2 78.3 H*, ABG pO2 74 L, Remy Test Positive 04/16/25 16:38: pH 7.25 L, Bicarbonate Actual 23.7, Base Excess -4 L, O2 Saturation 94 L, ABG pCO2 53.9 H, ABG pO2 82 04/16/25 20:31: Urine Color Straw, Urine Clarity Clear, Urine pH 6.0, Ur Specific [place] 1.015, Urine Protein 15 H, Urine Glucose (UA) Normal, Urine Ketones Negative, Urine Occult Blood 25 H, Urine Nitrite Negative, Urine Bilirubin Negative, Urine Urobilinogen Normal, Ur Leukocyte Esterase Negative, Urine RBC 0-5 SEEN, Urine WBC 0-5 SEEN 04/17/25 06:08: WBC 23.0 H, RBC 4.36, Hgb 15.3 H, Hct 42.4, MCV 97.2, MCH 35.1 H, MCHC 36.1 H, Plt Count 260, MPV 10.4, Immature Gran % (Auto) 0.800, Neut % (Auto) 85.6 H, Lymph % (Auto) 5.7 L, [place] % (Auto) 7.6, Eos % (Auto) 0.0, Baso % (Auto) 0.3, Absolute Neuts (auto) 19.7 H, Nucleated RBC % 0, Sodium 134, Potassium 4.1, Chloride 96 L, Carbon Dioxide 23.1, Anion Gap 15, BUN 28 H, Creatinine 1.28 H, Est GFR (MDRD) Non-Af 42 L, BUN/Creatinine Ratio 22.0 H, Glucose 190 H, Calcium 7.8, Total Bilirubin 0.76, Triglycerides 138, Cholesterol 159, VLDL Cholesterol 28, HDL Cholesterol 59, Cholesterol/HDL Ratio 2.70 Rhythm: EKG: ECHO: Stress Test: Cardiac Cath: PCI: CT Surgery: Holter monitor: EPS: PPM: CXR: Chest CT Scan: Radiography Diagnostic Testing: Radiology Impression Chest X-Ray 04/16/25 13:54 IMPRESSION: Pulmonary findings as above. Reading Location: [id number] Chest CTA 04/16/25 14:06 IMPRESSION: No evidence of pulmonary embolism. Findings suggestive of mild vascular congestion with scarring at the lung bases. Reading Location: [facility] Chest X-Ray 04/16/25 14:53 IMPRESSION: Findings suggestive of pulmonary edema. This has progressed as compared to prior study. The tip of the endotracheal tube is at 3.7 cm proximal the agnes. The tip of the orogastric tube is below the left hemidiaphragm. Reading Location: [facility] KUB X-Ray 04/17/25 01:01 IMPRESSION: Enteric feeding tube is in good position with its tip at the level of the gastric body. Endotracheal tube is in good position. Unremarkable gas pattern in the visualized upper abdomen. [facility] 04/17/25 01:20 IMPRESSION: Decreased pulmonary congestion. Endotracheal tube is in good position. Enteric feeding tube is in good position with its tip extending below the level of the left hemidiaphragm. There is no demonstrated pleural abnormality. Enlarged cardiac silhouette. 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 HEENT normocephalic Neck Neck Narrative: Endotracheal tube in place. Chest inspection of chest normal Resp Resp Narrative: Patient is intubated on the ventilator. Auscultation: rhonchi throughout Cardio Cardio Narrative: Distant heart tones with no obvious murmurs gallops or rubs Rate: regular rate Rhythm: regular rhythm Heart Sounds: S1 normal and S2 normal; Negative for click, gallop or murmur GI GI Narrative: Obese Extremity Extremity Narrative: Distal lower extremities cool to touch upper extremities warm. General Extremity: edema bilateral lower extremity Details: trace Neuro Neuro Narrative: Sedated Psych Psych Narrative: Sedated Assessment & Plan Assessment/Plan (1) Cardiac arrest: PLAN: Patient had an appeared to be culprit lesion in the circumflex vessel with thrombus which was treated with intracoronary stenting. The patient had presented to the emergency department and had a witnessed cardiac arrest in the ED. The patient been placed on amiodarone her initial QT intervals were within normal limits they have now elongated significantly. This may be a drug drug interaction with amiodarone and some of her other medications. But would recommend discontinuing the amiodarone. Will monitor her QT intervals off Amio. Should the patient have recurrent VT would recommend utilization of lidocaine IV. Further evaluation and treatment of the pulmonary status per the primary service and ICU team. (2) CAD (coronary artery disease): QUALIFIERS: Coronary Disease-Associated Artery/Lesion type: tribal artery [place] vs. transplanted heart: tribal heart Associated angina: with unstable angina Qualified Code(s): I25.110 - Atherosclerotic heart disease of tribal coronary artery with unstable angina pectoris PLAN: Patient presented with what appears to be a non-STEMI posterior wall infarct. She has a chronically occluded left anterior descending and a stented culprit lesion in the circumflex on this admission. Echocardiogram is pending today. Will titrate further medical therapy including beta-pamella, ARB, diuretic therapy, and addition of Jardiance as tolerated by blood pressure and heart rate response. Currently the patient is requiring pressors. (3) Respiratory failure: QUALIFIERS: Chronicity: acute Respiratory failure complication: hypoxia Qualified Code(s): J96.01 - Acute respiratory failure with hypoxia PLAN: The patient is currently intubated and sedated. Further treatment per the pulmonary and ICU team. PLAN: Plan 1. DC amiodarone. 2. Monitor QT interval. 3. Continue with ICU team management and titration of postinfarct LV recovery medical therapy as tolerated. 4. Follow-up with results of the echocardiogram and further recommendations to follow. Charges/Coding Visit Charges Inpatient E&M: 15186 [facility] L2
[2025-04-17 08:18] LABS: Magnesium 2.5 mg/dL (1.5-2.2)
[2025-04-17] MEDS: Pantoprazole Sodium 40 MG in 0.9% Normal Saline (100mL MB+) 100 ML 300 MG IV (08:18)
[2025-04-17] MEDS: TICAGRELOR 90 MG TABLET PO (08:24)
[2025-04-17] MEDS: Potassium Chloride Oral Tablet 20 MEQ GT ×2 (08:24→16:24)
[2025-04-17 09:05] LABS: Base Excess 5 mmol/L (-2 to +2); FI02 40.0; PEEP 5; PO2 84 mmHG (75-100); RR 22; SITE L Radial; SO2 98 % (95-99); Time Given 09:02:35
--- NOTE | 2025-04-17 09:27 | CRPHASE1_ITS ---
Patient Communication Patient Information PHII Cardiac Rehab Discussed with Patient:: No (patient intubated at this time ) Guide to Cardiac Rehab Given to Patient:: Yes (booklet left in room ) Cardiac Rehab Facility Choice List Given to Patient:: Yes Communication to Cardiac Rehab Choice Program [facility] CR PHII:: Communication Given to CR and Refer to [facility] Choice Program Other:: Communication Given to CR Hostel Manager:: Julien Emanuel PCP:: Eric Rich Phase II Cardiac Rehab:: No (Patient currently intubated, pending neurol ogy outcome ) Post Discharge Choice Letter Given to Patient:: Yes (left in room ) Phase I Charge:: Level I - Education Medical/Surgical History Medical History MS:: Yes CAD:: Yes Congestive Heart Failure:: Yes Pulmonary:: Yes Hypertension:: Yes CVA/TIA: Depression:: Yes Anxiety:: Yes Surgical History PTCA:: Yes Cardiac Rehabilitation Info Program Information Cardiac Rehabilitation Program Information: Cardiac Rehab The cardiac rehab team at [facility] consists of highly skilled exercise physiologists, nurses, respiratory therapists and physicians working together with you. Our purpose is to help you have a full recovery and achieve the goals you set for yourself. Over the years many of our patients have returned to activities they assumed they would never do again! We can help restore your confidence and motivation to make lifestyle changes that can have a significant impact on your health and quality of life! We can help answer questions and concerns you may have about exercise, lifestyle, medications, diet, stress and anxiety which are common following a hospitalization. WE monitor ECG and vital signs during exercise and discuss your progress with you and report to your physician(s). Cardiac Rehab is proven to help reduce readmissions, improve functional capacity and lower recurrence of problems with your heart. Our Cardiac Rehab program is Certified by the [place] [employer]-V[employer] and Pulmonary [employer] (AACVPR) and Accredited by the [place] [employer] through our [facility]. You can contact us at . We invite you to call us with your questions or to get started in our program. If you have other questions or concerns be sure to ask your physician/provider during your follow-up visit. WE look forward to seeing you!
--- NOTE | 2025-04-17 09:29 | CRPH1.INSTRU ---
General Education Discussed with Patient CAD and cardiac anatomy and function:: Not instructed (patient intubated no family present ) Explanation of diagnoses and procedures:: Not instructed (patient intubated no family present ) Sign/Symptoms of AR:: Not instructed (patient intubated no family present ) Antiplatelet therapy: Not instructed (patient intubated no family present ) Proper use of NTG-SL: Not instructed (patient intubated no family present ) Emergency procedures and activation of EMS: Not instructed (patient intubated no family present ) Compliance of all prescribed medications: Not instructed (patient intubated no family present ) Smoking Risk Factors Patient Nicotine/Smoking Risk Factors Are:: Never smoked Response Code Nicotine/Smoking Response Code:: Not instructed (patient intubated no family present ) Dyslipidemia Response Code Dyslipidemia Response Code:: Not instructed (patient intubated no family present ) Overweight/Obesity Risk Factors Patient Overweight/Obesity Risk Factors Are:: Overweight = 26-29 and Obesity - > or = 30 (42.5) Response Code Overweight/Obesity:: Not instructed (patient intubated no family present ) Hypertension Response Code Hypertension:: Not instructed (patient intubated no family present ) Heart Disease Risk Factors Patient Heart Disease Risk Factors Are:: Previous cardiac event Response Code Heart Disease Response Code:: Not instructed (patient intubated no family present ) Diabetes Risk Factors Patient Diabetes Risk Factors Are:: No documented hx of diabetes Response Code Diabetes:: Not instructed (patient intubated no family present ) Metabolic Syndrome Risk Factors Patient Metabolic Syndrome Risk Factors Are [3 of 5]:: Hypertension Response Code Metabolic Syndrome Response Code:: Not instructed (patient intubated no family present ) Sedentary Response Code Sedentary Response Code:: Not instructed (patient intubated no family present ) Stress Response Code Stress Response Code:: Not instructed (patient intubated no family present )
--- NOTE | 2025-04-17 10:00 | EKG12_ITS ---
Test Reason : AM EKG Blood Pressure : */* mmHG Vent. Rate : 64 BPM Atrial Rate : 64 BPM P-R Int : 194 ms QRS Dur : 72 ms QT Int : 590 ms P-R-T Axes : -23 0 110 degrees QTcB Int : 608 ms Critical Test Result: Long QTc Normal sinus rhythm Low voltage QRS T wave abnormality, consider anterolateral ischemia Prolonged QT Abnormal ECG When compared with ECG of 16-Apr-2025 14:56, MANUAL COMPARISON REQUIRED DATA IS UNCONFIRMED Confirmed by Rodney Cedeno ([id number]), newspaper managing editor SALOME UPTON ([id number]) on 04/18/2025 6:02:11 AM Referred By: BRITTNY Confirmed By: Rodney Cedeno
[2025-04-17] MEDS: fentaNYL drip 100 ML 7.5 MCG CONT INF (10:42)
--- NOTE | 2025-04-17 13:57 | CASEMGMT ---
RN MONTSERRAT Assessment Face to Face with patient for initial transition planning/care coordination assessment. Pt is currently sedated and intubated and is unable to answer this RN CM questions for assessment. There is no family at bedside. TC to pt's NOK, daughter (Mary). Mary agreeable to answering this RN MONTSERRAT questions for assessment. Care providers, pharmacy, and demographics verified. Admitting dx: Cardiac Arrest LACE Strata: 1 PCP: Eric Rich Specialists: Denies Preferred Pharmacy: [facility] Insurance: [facility] Prescription Benefit: Yes LNOK: Mary Wilson (Daughter) Living Arrangements: Pt lives alone in a single story home with a ramp to enter. See ED SW note regarding hoarding situation. Pt's daughter states that she is currently working on getting the home cleaned out. SW is aware. ADLs/IADLs: Daughter reports the pt is indep at baseline Transportation: Daughter reports that the pt does not drive and uses taxi services and services through her insurance DME: Access to a FWW, rollator, and cane HHC/SNF: Denies hx of Pt?s goal: TBD Plan: TBD. PT to be held today per ICU rounds. Follow for p2y rx. Follow for oxygen needs. At this time, the pt's daughter anticipates that the pt will require a short term SNF stay for further rehab. Daughter requests that the pt go to a SNF in [place], closer to where the daughter lives. CM to follow pt's progression in the hospital for safe DC planning. Daughter denies further questions or concerns at this time and states that she will try to make it to ICU rounds tomorrow morning. CM and SW to continue to follow. Meet Chen RN, CM
[2025-04-17] MEDS: Norepinephrine 8 MG in 0.9% Normal Saline (250mL Bag) 242 ML 18.8 MG CONT INF (16:30)
[2025-04-17] MEDS: dexMEDEtomidine 400 MCG in 0.9% Normal Saline (100mL Bag) 96 ML 11.5 MCG CONT INF (17:08)
[2025-04-17] MEDS: TICAGRELOR 90 MG TABLET GT (22:05)
[2025-04-18] VITALS (42 sets, daily range): BP systolic 90–155; BP diastolic 45–78; PULSE 60–102; RESP 14–25; TEMP 36.8–37.7; O2SAT 95–100; BMI 42.6
[2025-04-18] MEDS: fentaNYL drip 100 ML 7.5 MCG CONT INF (00:10)
[2025-04-18] MEDS: dexMEDEtomidine 400 MCG in 0.9% Normal Saline (100mL Bag) 96 ML 11.5 MCG CONT INF ×2 (00:53→18:08)
[2025-04-18] MEDS: 0.9% Saline Lock 10 ML Syringe IV ×3 (05:37→23:28)
[2025-04-18] MEDS: Ampicillin/Sulbactam 3 GM in 0.9% Normal Saline (100mL MB+) 100 ML IV ×4 (05:37→23:29)
[2025-04-18 05:51] LABS: Hematocrit 37.4 % (37-47); Hemoglobin 13.0 g/dL (12.0-15.0); Immature Granulocytes Count 0.110 X10^3/uL (0.0-0.0); Mean Corp Hgb Conc 34.8 g/dL (32-36); Mean Corpuscular Volume 100.3 fL (81-99); Mean Platelet Vol. 10.9 fl (6.2-12.0); NRBC Flagged by Analyzer 0 % (0-5); POSITIVE DIFFERENTIAL YES; Platelet Count 195 K/mm3 (150-450); RBC Distribution Width CV 12.9 % (11.6-14.6); RBC Distribution Width SD 47.1 fl (35.1-43.9); Red Blood Count 3.73 M/mm3 (4.2-5.4); White Blood Count 17.6 K/mm3 (4.4-11.0)
[2025-04-18 05:56] LABS: Differential Indicated SCAN CRITERIA MET
[2025-04-18 06:19] LABS: Anion Gap 11 (5-15); BUN 28 mg/dL (4-19); BUN/Creat Ratio 20.7 RATIO (10-20); Calcium,Total 7.4 mg/dL (7.6-11.0); Carbon Dioxide 23.7 mmol/L (21.0-32.0); Chloride 104 mmol/L (98-108); Estimated Creatinine Clearance 33.09 ml/min (50-250); Glucose 121 mg/dL (70-99); Potassium 3.2 mmol/L (3.3-5.1)
[2025-04-18 06:50] LABS: Differential Comment SCANNED
--- NOTE | 2025-04-18 07:37 | PN.CC_ITS ---
Assessment & Plan Assessment/Plan (1) Respiratory failure: QUALIFIERS: Chronicity: acute Respiratory failure complication: h ypoxia Qualified Code(s): J96.01 - Acute respiratory failure with hypoxia (2) Cardiac arrest: PLAN: Plan RECOMMENDATIONS: 1. Attempt spontaneous awakening and breathing trial as tolerated. 2. Continue to wean Levophed to maintain a mean arterial pressure at or above 65 mmHg. 3. Continue current sedation regimen. Goal to maintain a RASS of -1 to 1. 4. Continue empiric antimicrobials. 5. Continue appropriate ICU prophylaxis. IMPRESSIONS: 1. Acute respiratory failure with hypoxemia and hypercapnia status post cardiac arrest The patient presented to the hospital in cardiac arrest with successful ROSC. She underwent drug-eluting stent placement to the circumflex and was intubated as a consequence of the aforementioned. CTA chest ruled out pulmonary embolism. Given that the patient has had several episodes of emesis around her endotracheal tube, we will plan to continue empiric antibiotics to cover for possible aspiration, despite negative chest x-ray. Recommend continuing current supportive care per cardiology recommendations. Will proceed with spontaneous awakening and breathing trial this morning as tolerated. Neurologically, the patient appears to be intact. 2. Coronary artery disease/atrial fibrillation with RVR/morbid obesity Complicates care, management, recovery and prognosis. Continue supportive measures as noted above. PT/OT to work with the patient. TIME: 33 minutes of critical care time, independent of procedures, was spent addressing the patient's acute respiratory failure with hypoxemia and hypercapnia status post cardiac arrest, review of all data and collaboration with the care team. Subjective Subjective The patient was seen and examined at the bedside this morning. Events from the last 24 hours have been reviewed. The patient remains on low-dose Levophed to maintain hemodynamic stability. Ventilator requirements are minimal with an FiO2 of 30% and PEEP of 5. The patient is documented to be overall net +1 L for the hospitalization. White blood cell count has improved to 17,000. Potassium is low at 3.2. Creatinine is stable at 1.35. Objective Data Objective Data The patient's most recent lab work, culture data and imaging studies have all been personally reviewed. Surface echocardiogram demonstrated mild concentric LVH with severe posterior lateral hypokinesis. Ejection fraction was estimated to be 40 to 45% with stage II diastolic dysfunction. Sputum culture is pending. Vital Signs: Vital Signs Temp Pulse Resp BP Pulse Ox O2 Del Method O2 Flow Rate 98.6 F 63 14 111/53 L 97 Mechanical Ventilator 15 04/18/25 04:00 04/18/25 07:15 04/18/25 07:00 04/18/25 07:15 04/18/25 07:00 04/18/25 07:00 04/16/25 14:39 FiO2 30 04/18/25 07:00 Oxygen Flow Rate (L/min) 15 Oxygen Delivery Method Mechanical Ventilator Weight: 203 lb 0.732 oz Body Mass Index (BMI) 42.6 Intake & Output: Intake and Output for Last 24 Hours 04/16/25 04/17/25 04/18/25 23:59 23:59 23:59 Intake Total 1526.61 / 1529.11 2312.62 / 2341.02 424.29 / 424.29 Output Total 550 / 1450 2230 / 2530 500 / 500 Balance 976.61 / 79.11 82.62 / -188.98 -75.71 / -75.71 Lab / Micro Data Attestation: I reviewed the patient's lab results. 04/18/25 03:55 04/18/25 03:55 Labs: Laboratory Results - last 24 hr 04/17/25 06:08: Magnesium 2.5 H 04/18/25 03:55: WBC 17.6 H, RBC 3.73 L, Hgb 13.0, Hct 37.4, MCV 100.3 H, MCH 34.9 H, MCHC 34.8, RDW Std Deviation 47.1 H, RDW Coeff of Kari 12.9, Plt Count 195, MPV 10.9, Immature Gran % (Auto) 0.600, Neut % (Auto) 77.0 H, Lymph % (Auto) 11.1 L, [place] % (Auto) 9.7, Eos % (Auto) 1.3, Baso % (Auto) 0.3, Absolute Neuts (auto) 13.6 H, Absolute Lymphs (auto) 1.95, Nucleated RBC % 0, Differential Comment SCANNED, Sodium 139, Potassium 3.2 L, Chloride 104, Carbon Dioxide 23.7, Anion Gap 11, BUN 28 H, Creatinine 1.35 H, Estim Creat Clear Calc 33.09 L, Est GFR (MDRD) Non-Af 39 L, BUN/Creatinine Ratio 20.7 H, Glucose 121 H, Calcium 7.4 L Micro: Microbiology 04/16/25 19:45 Sputum, Induced/Lukens Gram Stain - Final ABG Data ABG results: ABG 04/17/25 09:00 Specimen Type ART Sample Site L Radial pH 7.64 H* Bicarbonate Actual 26.3 H Total CO2 27 Base Excess 5 H O2 Saturation 98 O2 % 40.0 ABG pCO2 24.6 L ABG pO2 84 Remy Test N/A Respiration Rate 22 O2 Delivery Device Adult Vent Vent Mode AC Tidal Volume 450.0 POC PEEP 5 Crit Call To/Read Back Yes Blood Gas Notified Whom DR MENDIOLA Blood Gas Notified Time 09:02:35 Radiography Diagnostic Testing: Radiology Impression Echocardiogram 04/16/25 17:08 Interpretation Summary The study was technically difficult. Mild concentric left ventricular hypertrophy. Severe posterior and lateral hypokinesis. Apical hypokinesis. Estimated LVEF 40- 45%. Stage II diastolic dysfunction with elevated left atrial filling pressures. The left atrium is moderately enlarged. Severe mitral annular calcification. Ordering Physician: Julien Emanuel Referring Physician: Eric Rich Performed By: Desiree Waddell, CHASITY, RVT Rhythm Strip Rhythm Strip: Sinus Rhythm Rate: 70 Ectopy: - (Prolonged QT interval) Physical Exam Const Constitutional Narrative: Intubated, sedated and mechanically ventilated. No ventilator dyssynchrony noted. HEENT normocephalic and head/scalp atraumatic Mouth: endotracheal tube in place and OG tube in place Eyes EOMs intact bilaterally and conjunctivae normal Neck supple General: trachea midline Chest inspection of chest normal Resp normal respiratory effort Auscultation: Negative for rales, rhonchi or wheezes Cardio regular rate and regular rhythm GI normal to inspection, nondistended, normoactive bowel sounds Extremity General Extremity: edema bilateral lower extremity; Negative for clubbing Skin no rashes or lesions noted Neuro Sensorium / Orientation: sedated on vent Charges/Coding Procedures Hospitalists Procedures: 32052 Critical Care 1st Hr
--- NOTE | 2025-04-18 08:00 | PN.HOSP_ITS ---
Reason for Visit Chief Complaint: Arm and jaw pain Subjective Subjective Small tidal volumes on SBT. Objective Data Objective Data Vital Signs: Vital Signs Temp Pulse Resp BP Pulse Ox O2 Del Method O2 Flow Rate 37.0 C 63 14 111/53 L 97 Mechanical Ventilator 15 04/18/25 04:00 04/18/25 07:15 04/18/25 07:00 04/18/25 07:15 04/18/25 07:00 04/18/25 07:00 04/16/25 14:39 FiO2 30 04/18/25 07:00 Oxygen Flow Rate (L/min) 15 Oxygen Delivery Method Mechanical Ventilator Weight: 92.1 kg Body Mass Index (BMI) 42.6 Intake & Output: Intake and Output for Last 24 Hours 04/16/25 04/17/25 04/18/25 23:59 23:59 23:59 Intake Total 1526.61 / 1529.11 2312.62 / 2341.02 424.29 / 424.29 Output Total 550 / 1450 2230 / 2530 500 / 500 Balance 976.61 / 79.11 82.62 / -188.98 -75.71 / -75.71 Lab / Micro Data 04/18/25 03:55 04/18/25 03:55 Labs: Laboratory Results - last 24 hr 04/17/25 06:08: Magnesium 2.5 H 04/18/25 03:55: WBC 17.6 H, RBC 3.73 L, Hgb 13.0, Hct 37.4, MCV 100.3 H, MCH 34.9 H, MCHC 34.8, RDW Std Deviation 47.1 H, RDW Coeff of Kari 12.9, Plt Count 195, MPV 10.9, Immature Gran % (Auto) 0.600, Neut % (Auto) 77.0 H, Lymph % (Auto) 11.1 L, [place] % (Auto) 9.7, Eos % (Auto) 1.3, Baso % (Auto) 0.3, Absolute Neuts (auto) 13.6 H, Absolute Lymphs (auto) 1.95, Nucleated RBC % 0, Differential Comment SCANNED, Sodium 139, Potassium 3.2 L, Chloride 104, Carbon Dioxide 23.7, Anion Gap 11, BUN 28 H, Creatinine 1.35 H, Estim Creat Clear Calc 33.09 L, Est GFR (MDRD) Non-Af 39 L, BUN/Creatinine Ratio 20.7 H, Glucose 121 H, Calcium 7.4 L Micro: Microbiology 04/16/25 19:45 Sputum, Induced/Lukens Gram Stain - Final ABG Data ABG results: ABG 04/17/25 09:00 Specimen Type ART Sample Site L Radial pH 7.64 H* Bicarbonate Actual 26.3 H Total CO2 27 Base Excess 5 H O2 Saturation 98 O2 % 40.0 ABG pCO2 24.6 L ABG pO2 84 Remy Test N/A Respiration Rate 22 O2 Delivery Device Adult Vent Vent Mode AC Tidal Volume 450.0 POC PEEP 5 Crit Call To/Read Back Yes Blood Gas Notified Whom DR MENDIOLA Blood Gas Notified Time 09:02:35 Radiography Diagnostic Testing: Radiology Impression Echocardiogram 04/16/25 17:08 Interpretation Summary The study was technically difficult. Mild concentric left ventricular hypertrophy. Severe posterior and lateral hypokinesis. Apical hypokinesis. Estimated LVEF 40- 45%. Stage II diastolic dysfunction with elevated left atrial filling pressures. The left atrium is moderately enlarged. Severe mitral annular calcification. Ordering Physician: Julien Emanuel Referring Physician: Eric Rich Performed By: Desiree Waddell, CHASITY, RVT Rhythm Strip Rhythm Strip: Sinus Rhythm Rate: 70 Ectopy: - (Prolonged QT interval) Physical Exam Const Constitutional Narrative: Intubated. Awake. Does follow commands. HEENT head/scalp atraumatic and moist oral mucous membranes Resp normal respiratory effort and no retractions Resp Narrative: Coarse breath sounds bilaterally Cardio regular rate, regular rhythm, S1 normal heart sound and S2 normal heart sound GI normal to inspection, nondistended, normoactive bowel sounds, soft to palpation, non-tender and non-distended Neuro Sensorium / Orientation: awake and alert Assessment & Plan Assessment/Plan (1) Cardiac arrest: (2) Flash pulmonary edema: (3) Respiratory failure: QUALIFIERS: Chronicity: acute Respiratory failure complication: h ypoxia Qualified Code(s): J96.01 - Acute respiratory failure with hypoxia (4) Polymorphic ventricular tachycardia: (5) CAD (coronary artery disease): QUALIFIERS: Associated angina: with unstable angina Coronary Disease-Associated Artery/Lesion type: [place] artery [place] vs. transplanted heart: [place] heart Qualified Code(s): I25.110 - Atherosclerotic heart disease of [place] coronary artery with unstable angina pectoris PLAN: Plan Cardiac arrest secondary to LCX thrombus (NSTEMI) * Patient with pulseless V. 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 Stage II DD. * Cardiology following. Acute hypoxic hypercapnic respiratory failure secondary to flash pulmonary edema +/- aspiration (HFrEF) * Post first ROSC patient ended up vomiting and was 87% on room air, she was placed on Airvo however within a matter of minutes she was 60% on high oxygen requirements and required intubation * Patient with frothy pink secretions during intubation and repeat chest x-ray showed increased pulmonary edema * Nitro drip DC'd, 40 IV twice daily Lasix ordered with potassium * Coreg and losartan as BP allows. * Continue IV Lasix * Daily weights, I's and O's * on amp/SB given concerns for aspiration. Cardiogenic shock * 2/2 CPA * still on norepinephrine A-fib with RVR * Post ROSC the second time patient went into A-fib with RVR and was started on amio drip in addition to the heparin * Unclear if there could have been longer history of A-fib or if this is all new after cardiac event * amio discontinued given prolonged QT * TSH was within normal limits * Will monitor on telemetry Chronic medical conditions: * obesity class III: BMI documented as 43.9 kg/m? at time of admission. Complicates treatment, prognosis, outcomes. DVT ppx: SCDs Discussed with patient's daughter at bedside Charges/Coding Visit Charges Inpatient E&M: 41024 Subs Hosp L2
[2025-04-18] MEDS: Potassium Chloride Oral Tablet 20 MEQ GT ×2 (08:19→17:19)
[2025-04-18] MEDS: TICAGRELOR 90 MG TABLET GT ×2 (08:19→21:55)
[2025-04-18] MEDS: Chlorhexidine 15 ML PO ×2 (08:21→21:55)
--- NOTE | 2025-04-18 08:39 | PN.CARD_ITS ---
Subjective Subjective Patient remains intubated and lightly sedated. She does follow simple commands. QT interval remains prolonged in the 550 ms range. Amiodarone was discontinued yesterday she does remain on Precedex. Objective Data Vital Signs: Vital Signs Temp Pulse Resp BP Pulse Ox O2 Del Method O2 Flow Rate 98.6 F 63 14 111/53 L 97 Mechanical Ventilator 15 04/18/25 04:00 04/18/25 07:15 04/18/25 07:00 04/18/25 07:15 04/18/25 07:00 04/18/25 07:00 04/16/25 14:39 FiO2 30 04/18/25 07:00 Oxygen Flow Rate (L/min) 15 Oxygen Delivery Method Mechanical Ventilator Weight: 203 lb 0.732 oz Body Mass Index (BMI) 42.6 Intake & Output: Intake and Output for Last 24 Hours 04/16/25 04/17/25 04/18/25 23:59 23:59 23:59 Intake Total 1526.61 / 1529.11 2312.62 / 2341.02 424.29 / 424.29 Output Total 550 / 1450 2230 / 2530 500 / 500 Balance 976.61 / 79.11 82.62 / -188.98 -75.71 / -75.71 Lab / Micro Data 04/18/25 03:55 04/18/25 03:55 Labs: Laboratory Results - last 24 hr 04/18/25 03:55: WBC 17.6 H, RBC 3.73 L, Hgb 13.0, Hct 37.4, MCV 100.3 H, MCH 34.9 H, MCHC 34.8, RDW Std Deviation 47.1 H, RDW Coeff of Kari 12.9, Plt Count 195, MPV 10.9, Immature Gran % (Auto) 0.600, Neut % (Auto) 77.0 H, Lymph % (Auto) 11.1 L, [place] % (Auto) 9.7, Eos % (Auto) 1.3, Baso % (Auto) 0.3, Absolute Neuts (auto) 13.6 H, Absolute Lymphs (auto) 1.95, Nucleated RBC % 0, Differential Comment SCANNED, Sodium 139, Potassium 3.2 L, Chloride 104, Carbon Dioxide 23.7, Anion Gap 11, BUN 28 H, Creatinine 1.35 H, Estim Creat Clear Calc 33.09 L, Est GFR (MDRD) Non-Af 39 L, BUN/Creatinine Ratio 20.7 H, Glucose 121 H, Calcium 7.4 L Micro: Microbiology 04/16/25 19:45 Sputum, Induced/Lukens Gram Stain - Final ABG Data ABG results: ABG 04/17/25 09:00 Specimen Type ART Sample Site L Radial pH 7.64 H* Bicarbonate Actual 26.3 H Total CO2 27 Base Excess 5 H O2 Saturation 98 O2 % 40.0 ABG pCO2 24.6 L ABG pO2 84 Remy Test N/A Respiration Rate 22 O2 Delivery Device Adult Vent Vent Mode AC Tidal Volume 450.0 POC PEEP 5 Crit Call To/Read Back Yes Blood Gas Notified Whom DR MENDIOLA Blood Gas Notified Time 09:02:35 Rhythm Strip Rhythm Strip: Sinus Rhythm Rate: 65 Ectopy: - (Prolonged QT interval) Cardiology Labs/Tests 04/17/25 09:00: pH 7.64 H*, Bicarbonate Actual 26.3 H, Base Excess 5 H, O2 Saturation 98, ABG pCO2 24.6 L, ABG pO2 84, Remy Test N/A 04/18/25 03:55: WBC 17.6 H, RBC 3.73 L, Hgb 13.0, Hct 37.4, MCV 100.3 H, MCH 34.9 H, MCHC 34.8, Plt Count 195, MPV 10.9, Immature Gran % (Auto) 0.600, Neut % (Auto) 77.0 H, Lymph % (Auto) 11.1 L, [place] % (Auto) 9.7, Eos % (Auto) 1.3, Baso % (Auto) 0.3, Absolute Neuts (auto) 13.6 H, Nucleated RBC % 0, Sodium 139, P otassium 3.2 L, Chloride 104, Carbon Dioxide 23.7, Anion Gap 11, BUN 28 H, C reatinine 1.35 H, Est GFR (MDRD) Non-Af 39 L, BUN/Creatinine Ratio 20.7 H, G lucose 121 H, Calcium 7.4 L Rhythm: EKG: ECHO: Stress Test: Cardiac Cath: PCI: CT Surgery: Holter monitor: EPS: PPM: CXR: Chest CT Scan: Radiography Diagnostic Testing: Radiology Impression Echocardiogram 09/23/25 17:08 Interpretation Summary The study was technically difficult. Mild concentric left ventricular hypertrophy. Severe posterior and lateral hypokinesis. Apical hypokinesis. Estimated LVEF 40- 45%. Stage II diastolic dysfunction with elevated left atrial filling pressures. The left atrium is moderately enlarged. Severe mitral annular calcification. Ordering Physician: Julien Emanuel Referring Physician: Eric Rich Performed By: Desiree Waddell, CHASITY, RVT Physical Exam Const Constitutional Narrative: Patient follows simple commands to squeeze fingers HEENT normocephalic Neck no JVD Neck Narrative: Thick neck intubated Resp normal respiratory effort Resp Narrative: Remains intubated with relatively clear lung rosario. Cardio Cardio Narrative: Distant heart tones due to increased AP diameter. Rate: regular rate Rhythm: regular rhythm Heart Sounds: S1 normal and S2 normal; Negative for click, gallop or murmur GI GI Narrative: Obese Neuro Neuro Narrative: Intubated and sedated Assessment & Plan Assessment/Plan (1) Cardiac arrest: PLAN: Patient presented with chest symptoms shortness of breath and subsequently had polymorphic VT in the emergency department. She was taken to the [facility] where a fresh occlusion of the circumflex was intervened upon with reperfusion. 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 EF is 40-45% by echocardiogram following revascularization. Currently the patient is not receiving the carvedilol due to low blood pressures she is also not on losartan. Would recommend when appropriate from a hemodynamic perspective the Coreg be instituted at 3.125 mg twice daily and losartan 25 mg daily due to her LV dysfunction. The patient should be reevaluated in 7 to 10 days after discharge in the [facility] offices and should have a subsequent limited echocardiogram 6 to 12 weeks after she is maximized on guideline directed medical therapy for LV recovery. (2) CAD (coronary artery disease): QUALIFIERS: Coronary Disease-Associated Artery/Lesion type: [place] artery [place] vs. transplanted heart: [place] heart Associated angina: with unstable angina Qualified Code(s): I25.110 - Atherosclerotic heart disease of [place] coronary artery with unstable angina pectoris PLAN: Patient remains on dual antiplatelet therapy should not be interrupted for any reason for 6 months and preferably 1 year. The patient has a stent in the circumflex which is widely patent and she has a known chronic total occlusion of the LAD. It does appear that the circumflex was perfusing the majority of the lateral wall and apex. Her lateral wall and apex were hypokinetic on echocardiogram. This will be reevaluated after 6 to 12 weeks of maximize guideline directed medical therapy for LV recovery. (3) Respiratory failure: QUALIFIERS: Chronicity: acute Respiratory failure complication: h ypoxia Qualified Code(s): J96.01 - Acute respiratory failure with hypoxia PLAN: Patient remains intubated she has been febrile with an elevated white count. This is being managed by the intensive care service. Plan is to try and do breathing trial today and hopefully extubate in the near future. (4) Prolonged QT interval: PLAN: Patient's QT interval remains prolonged 24 hours after discontinuation of IV amiodarone. This is most probably a medication effect. She does have relative hypokalemia at 3.2 which is being replaced. PLAN: Plan 1. Continue to maximize electrolytes. 2. Recommend when hemodynamically appropriate Coreg 3.125 mg twice daily and losartan 25 mg daily be instituted. 3. Once discharged the patient should follow-up with the [facility] in 7 to 10 days for continued titration of guideline directed medical therapy. 4. Once achieved maximum tolerated guideline directed medical therapy for LV recovery the patient should have a limited echocardiogram 6 to 12 weeks later. 5. If further assistance is needed during this hospitalization Dr. Emanuel will be taking over the service. Charges/Coding Visit Charges Inpatient E&M: 19422 Subs Hosp L2
[2025-04-18] MEDS: Potassium Chloride 20mEq/100mL 20 MEQ/100 ML IV.SOLN. 100 MEQ IV BOLUS ×2 (09:49→10:55)
--- NOTE | 2025-04-18 10:00 | EKG12_ITS ---
Test Reason : AM EKG Blood Pressure : */* mmHG Vent. Rate : 65 BPM Atrial Rate : 65 BPM P-R Int : 172 ms QRS Dur : 78 ms QT Int : 492 ms P-R-T Axes : 265 -2 124 degrees QTcB Int : 511 ms Unusual P axis, possible ectopic atrial rhythm with Premature supraventricular complexes T wave abnormality, consider lateral ischemia Prolonged QT Abnormal ECG When compared with ECG of 17-Apr-2025 04:37, MANUAL COMPARISON REQUIRED DATA IS UNCONFIRMED Confirmed by Rodney Cedeno ([id number]), assistant editor SALOME UPTON ([id number]) on 04/18/2025 8:10:15 AM Referred By: ESTER Confirmed By: Rodney Cedneo
[2025-04-18] MEDS: Pantoprazole Sodium 40 MG in 0.9% Normal Saline (100mL MB+) 100 ML 300 MG IV (12:02)
--- NOTE | 2025-04-18 14:00 | CHAPLAIN ---
Type of Pastoral Visit ___ Initial Visit _x__ Follow-up Visit ___ On-call Visit ___ General Patient Visit ___ Spiritual Assessment ___ Family Conference ___ Bereavement ___ Rapid Response ___ Code Blue ___ Other (describe below) Pastoral Care Referral From ___ Patient _x__ Family ___ Nurse ___ Physician ___ [place] ___ Pick Up Truck Driver ___ Other (describe below) Sacrament/Intervention _x__ Active listening ___ Anointing ___ Scientologist ___ Bereavement ___ Communion ___ Kortney exploration ___ ___ Life review ___ Prayer ___ Reconciliation ___ Sacrament of Sick _x__ Supportive presence ___ Wedding ___ Other (describe below) Pastoral Comments patient is on the vent but is awake and able to follow commands; pt's daughter and grandson are in the room; family members are actively being attentive and supportive; pt is trying to say something but frustrated until daughter figures out what she needs and handles it; offer of support; listening and conversation given
[2025-04-18] MEDS: Senna/Docusate Sodium 1 Tablet 2 TABLET PO (22:01)
[2025-04-18] MEDS: CHLORHEXIDINE GLUC 2% CLOTH 1 EACH TOWELETTE TOPICAL (23:29)
[2025-04-18] MEDS: 0.9% Normal Saline (250mL Bag) 250 ML 15 ML IV (23:33)
[2025-04-19] VITALS (45 sets, daily range): BP systolic 96–153; BP diastolic 40–82; PULSE 62–104; RESP 14–28; TEMP 37–37.8; O2SAT 94–99; BMI 42.3
[2025-04-19] MEDS: dexMEDEtomidine 400 MCG in 0.9% Normal Saline (100mL Bag) 96 ML 18.5 MCG CONT INF (01:27)
[2025-04-19 05:07] LABS: Hematocrit 32.4 % (37-47); Hemoglobin 11.4 g/dL (12.0-15.0); Immature Granulocytes Count 0.060 X10^3/uL (0.0-0.0); Mean Corp Hgb Conc 35.2 g/dL (32-36); Mean Corpuscular Volume 100.0 fL (81-99); Mean Platelet Vol. 10.4 fl (6.2-12.0); NRBC Flagged by Analyzer 0 % (0-5); Platelet Count 141 K/mm3 (150-450); RBC Distribution Width CV 12.9 % (11.6-14.6); RBC Distribution Width SD 46.7 fl (35.1-43.9); Red Blood Count 3.24 M/mm3 (4.2-5.4); White Blood Count 14.1 K/mm3 (4.4-11.0)
[2025-04-19] MEDS: Ampicillin/Sulbactam 3 GM in 0.9% Normal Saline (100mL MB+) 100 ML IV ×3 (05:10→17:05)
[2025-04-19] MEDS: 0.9% Saline Lock 10 ML Syringe IV ×2 (05:10→17:05)
[2025-04-19 06:12] LABS: Anion Gap 12 (5-15); BUN 30 mg/dL (4-19); BUN/Creat Ratio 23.3 RATIO (10-20); Calcium,Total 7.6 mg/dL (7.6-11.0); Carbon Dioxide 23.8 mmol/L (21.0-32.0); Chloride 104 mmol/L (98-108); Estimated Creatinine Clearance 34.19 ml/min (50-250); Glucose 106 mg/dL (70-99); Potassium 3.3 mmol/L (3.3-5.1)
[2025-04-19] MEDS: dexMEDEtomidine 400 MCG in 0.9% Normal Saline (100mL Bag) 96 ML 18.3 MCG CONT INF (06:17)
--- NOTE | 2025-04-19 07:39 | PN.CC_ITS ---
Assessment & Plan Assessment/Plan (1) Respiratory failure: QUALIFIERS: Chronicity: acute Respiratory failure complication: h ypoxia Qualified Code(s): J96.01 - Acute respiratory failure with hypoxia (2) Cardiac arrest: PLAN: Plan RECOMMENDATIONS: 1. Proceed with a trial of extubation this morning. 2. Once extubated, wean supplemental oxygen to maintain saturations at or above 90%. 3. Perform bedside swallow evaluation with dietary advancement as tolerated. 4. Continue to wean Levophed to maintain a mean arterial pressure at or above 65 mmHg. 5. Continue empiric antimicrobials. 6. Encourage incentive spirometer use and mobilize patient as tolerated. IMPRESSIONS: 1. Acute respiratory failure with hypoxemia and hypercapnia status post cardiac arrest The patient presented to the hospital in cardiac arrest with successful ROSC. She underwent drug-eluting stent placement to the circumflex and was intubated as a consequence of the aforementioned. CTA chest ruled out pulmonary embolism. Given that the patient has had several episodes of emesis around her endotracheal tube, we will plan to continue empiric antibiotics to cover for possible aspiration, despite negative chest x-ray. Recommend continuing current supportive care per cardiology recommendations. The patient has improved from a respiratory perspective and passed her spontaneous breathing trial this morning. Therefore, we will plan to proceed with extubation. Once extubated, wean supplemental oxygen to maintain saturations at or above 90%. Perform bedside swallow evaluation, with dietary advancement as tolerated. Continue ongoing diuresis, as tolerated by hemodynamics and renal function. 2. Coronary artery disease/atrial fibrillation with RVR/morbid obesity Complicates care, management, recovery and prognosis. Continue supportive measures as noted above. PT/OT to work with the patient. TIME: 34 minutes of critical care time, independent of procedures, was spent addressing the patient's acute respiratory failure with hypoxemia and hypercapnia status post cardiac arrest, review of all data and collaboration with the care team. Subjective Subjective The patient was seen and examined at the bedside this morning. Events from the last 24 hours have been reviewed. The patient currently has a low-grade fever and remains on Levophed at 1 mcg/min. She has done well overnight from a ventilator perspective with an FiO2 requirement of 30% and PEEP of 5. The patient tolerated pressure support throughout most of the day yesterday. She subsequently completed another spontaneous awakening and breathing trial this morning. She is alert and able to follow commands appropriately. White blood cell count has improved to 14,000. Hemoglobin and platelet count are stable. Creatinine is stable at 1.3. Objective Data Objective Data The patient's most recent lab work, culture data and imaging studies have all been personally reviewed. Surface echocardiogram demonstrated mild concentric LVH with severe posterior lateral hypokinesis. Ejection fraction was estimated to be 40 to 45% with stage II diastolic dysfunction. Sputum culture is pending. Vital Signs: Vital Signs Temp Pulse Resp BP Pulse Ox O2 Del Method O2 Flow Rate 100.0 F H 66 24 H 113/45 L 94 Mechanical Ventilator 15 04/19/25 07:00 04/19/25 07:15 04/19/25 07:15 04/19/25 07:00 04/19/25 07:15 04/19/25 07:00 04/16/25 14:39 FiO2 30 04/19/25 07:11 Oxygen Flow Rate (L/min) 15 Oxygen Delivery Method Mechanical Ventilator Weight: 201 lb 4.513 oz Body Mass Index (BMI) 42.3 Intake & Output: Intake and Output for Last 24 Hours 04/17/25 04/18/25 04/19/25 23:59 23:59 23:59 Intake Total 2312.62 / 2341.02 1417.79 / 1431.59 365.84 / 365.84 Output Total 2230 / 2530 2100 / 2100 650 / 650 Balance 82.62 / -188.98 -682.21 / -668.41 -284.16 / -284.16 Lab / Micro Data Attestation: I reviewed the patient's lab results. 04/19/25 04:55 04/19/25 04:55 Labs: Laboratory Results - last 24 hr 04/19/25 04:55: WBC 14.1 H, RBC 3.24 L, Hgb 11.4 L, Hct 32.4 L, MCV 100.0 H, MCH 35.2 H, MCHC 35.2, RDW Std Deviation 46.7 H, RDW Coeff of Kari 12.9, Plt Count 141 L, MPV 10.4, Immature Gran % (Auto) 0.400, Neut % (Auto) 77.3 H, Lymph % (Auto) 11.3 L, [place] % (Auto) 9.0, Eos % (Auto) 1.7, Baso % (Auto) 0.3, Absolute Neuts (auto) 10.9 H, Absolute Lymphs (auto) 1.59, Nucleated RBC % 0, Sodium 140, Potassium 3.3, Chloride 104, Carbon Dioxide 23.8, Anion Gap 12, BUN 30 H, C reatinine 1.30 H, Estim Creat Clear Calc 34.19 L, Est GFR (MDRD) Non-Af 41 L, B UN/Creatinine Ratio 23.3 H, Glucose 106 H, Calcium 7.6 Micro: Microbiology 04/16/25 19:45 Sputum, Induced/Lukens Gram Stain - Final ABG Data ABG results: ABG 04/17/25 09:00 Specimen Type ART Sample Site L Radial pH 7.64 H* Bicarbonate Actual 26.3 H Total CO2 27 Base Excess 5 H O2 Saturation 98 O2 % 40.0 ABG pCO2 24.6 L ABG pO2 84 Remy Test N/A Respiration Rate 22 O2 Delivery Device Adult Vent Vent Mode AC Tidal Volume 450.0 POC PEEP 5 Crit Call To/Read Back Yes Blood Gas Notified Whom DR MENDIOLA Blood Gas Notified Time 09:02:35 Radiography Diagnostic Testing: Radiology Impression Echocardiogram 04/16/25 17:08 Interpretation Summary The study was technically difficult. Mild concentric left ventricular hypertrophy. Severe posterior and lateral hypokinesis. Apical hypokinesis. Estimated LVEF 40- 45%. Stage II diastolic dysfunction with elevated left atrial filling pressures. The left atrium is moderately enlarged. Severe mitral annular calcification. Ordering Physician: Julien Emanuel Referring Physician: Eric Rich Performed By: Desiree Waddell, CHASITY, RVT Rhythm Strip Rhythm Strip: Sinus Rhythm Rate: 65 Ectopy: - (Prolonged QT interval) Physical Exam Const Constitutional Narrative: Remains intubated and mechanically ventilated. Currently tolerating spontaneous mode of mechanical ventilation. HEENT normocephalic and head/scalp atraumatic Mouth: endotracheal tube in place and OG tube in place Eyes EOMs intact bilaterally and conjunctivae normal Neck supple General: trachea midline Chest inspection of chest normal Resp normal respiratory effort Auscultation: Negative for rales, rhonchi or wheezes Cardio regular rate and regular rhythm GI normal to inspection, nondistended, normoactive bowel sounds Extremity General Extremity: edema bilateral lower extremity; Negative for clubbing Skin no rashes or lesions noted Neuro Neuro Narrative: Alert and able to follow simple commands appropriately. Charges/Coding Procedures Hospitalists Procedures: [id number] Critical Care 1st Hr
--- NOTE | 2025-04-19 08:41 | PN.HOSP_ITS ---
Reason for Visit Chief Complaint: Arm and jaw pain Subjective Subjective Extubated. Objective Data Objective Data Vital Signs: Vital Signs Temp Pulse Resp BP Pulse Ox O2 Del Method O2 Flow Rate 37.8 C H 66 24 H 113/45 L 94 Mechanical Ventilator 15 04/19/25 07:00 04/19/25 07:15 04/19/25 07:15 04/19/25 07:00 04/19/25 07:15 04/19/25 07:00 04/16/25 14:39 FiO2 30 04/19/25 07:11 Oxygen Flow Rate (L/min) 15 Oxygen Delivery Method Mechanical Ventilator Weight: 91.3 kg Body Mass Index (BMI) 42.3 Intake & Output: Intake and Output for Last 24 Hours 04/17/25 04/18/25 04/19/25 23:59 23:59 23:59 Intake Total 2312.62 / 2341.02 1417.79 / 1431.59 378.04 / 378.04 Output Total 2230 / 2530 2100 / 2100 825 / 825 Balance 82.62 / -188.98 -682.21 / -668.41 -446.96 / -446.96 Lab / Micro Data 04/19/25 04:55 04/19/25 04:55 Labs: Laboratory Results - last 24 hr 04/19/25 04:55: WBC 14.1 H, RBC 3.24 L, Hgb 11.4 L, Hct 32.4 L, MCV 100.0 H, MCH 35.2 H, MCHC 35.2, RDW Std Deviation 46.7 H, RDW Coeff of Kari 12.9, Plt Count 141 L, MPV 10.4, Immature Gran % (Auto) 0.400, Neut % (Auto) 77.3 H, Lymph % (Auto) 11.3 L, [place] % (Auto) 9.0, Eos % (Auto) 1.7, Baso % (Auto) 0.3, Absolute Neuts (auto) 10.9 H, Absolute Lymphs (auto) 1.59, Nucleated RBC % 0, Sodium 140, Potassium 3.3, Chloride 104, Carbon Dioxide 23.8, Anion Gap 12, BUN 30 H, C reatinine 1.30 H, Estim Creat Clear Calc 34.19 L, Est GFR (MDRD) Non-Af 41 L, B UN/Creatinine Ratio 23.3 H, Glucose 106 H, Calcium 7.6 Micro: Microbiology 04/16/25 19:45 Sputum, Induced/Lukens Gram Stain - Final Rhythm Strip Rhythm Strip: Sinus Rhythm Rate: 65 Ectopy: - (Prolonged QT interval) Physical Exam Const alert and no apparent distress Constitutional Narrative: weak voice Resp normal respiratory effort and no retractions Resp Narrative: coars bs bilaterally Cardio regular rate, regular rhythm, S1 normal heart sound and S2 normal heart sound GI normal to inspection, nondistended, normoactive bowel sounds, soft to palpation and non-tender Extremity normal to inspection and full ROM Neuro Sensorium / Orientation: awake and alert Assessment & Plan Assessment/Plan (1) Cardiac arrest: (2) Flash pulmonary edema: (3) Respiratory failure: QUALIFIERS: Chronicity: acute Respiratory failure complication: h ypoxia Qualified Code(s): J96.01 - Acute respiratory failure with hypoxia (4) Polymorphic ventricular tachycardia: (5) CAD (coronary artery disease): QUALIFIERS: Associated angina: with unstable angina Coronary Disease-Associated Artery/Lesion type: [place] artery [place] vs. transplanted heart: [place] heart Qualified Code(s): I25.110 - Atherosclerotic heart disease of [place] coronary artery with unstable angina pectoris PLAN: Plan Cardiac arrest secondary to LCX thrombus (NSTEMI) * Patient with pulseless V. tach arrest in the ED requiring defibrillation and achieved ROSC and subsequent respiratory arrest with PEA * Subsequently taken emergently to the [facility] on a heparin drip, Amio drip and nitroglycerin drip * In [employer] [employer]IN[employer] Mid LAD, 100% mid LCX with thrombus, 50-60% mid RCA and successful PTCA/JEREMIE to mid LCX * Recommendation for aspirin indefinitely and P2 Y12 for at least 6 months * Echo shows an EF of 40-45%. Stage II DD. * Cardiology following. Acute hypoxic hypercapnic respiratory failure secondary to flash pulmonary edema (acute HFrEF) +/- aspiration * Post first ROSC patient ended up vomiting and was 87% on room air, she was placed on Airvo however within a matter of minutes she was 60% on high oxygen requirements and required intubation * Patient with frothy pink secretions during intubation and repeat chest x-ray showed increased pulmonary edema * Nitro drip DC'd, 40 IV twice daily Lasix ordered with potassium * Coreg and losartan as BP allows. * Continue IV Lasix * Daily weights, I's and O's * on amp/SB given concerns for aspiration. * extubated 04/19 Cardiogenic shock * 08/26 CPA * weaned off norepinephrine. A-fib with RVR * Post ROSC the second time patient went into A-fib with RVR and was started on amio drip in addition to the heparin * Unclear if there could have been longer history of A-fib or if this is all new after cardiac event * amio discontinued given prolonged QT * TSH was within normal limits * Will monitor on telemetry Chronic medical conditions: * obesity class III: BMI documented as 43.9 kg/m? at time of admission. Complicates treatment, prognosis, outcomes. DVT ppx: SCDs dw patient's family Charges/Coding Visit Charges Inpatient E&M: 58412 Subs Hosp L2
[2025-04-19] MEDS: Pantoprazole Sodium 40 MG in 0.9% Normal Saline (100mL MB+) 100 ML 300 MG IV (09:51)
[2025-04-19] MEDS: Potassium Chloride 20mEq/100mL 20 MEQ/100 ML IV.SOLN. 100 MEQ IV BOLUS ×2 (11:01→12:06)
--- NOTE | 2025-04-19 14:16 | CASEMGMT ---
Social Work SW met with pt and assisted in completing living will and health care POA naming her dgt Mary Wilson at [facility] [place]. Copy placed on pt chart and original given to pt. RYANN Peter
--- NOTE | 2025-04-19 15:40 | RAD_ITS ---
PROCEDURE: ABDOMEN SINGLE VIEW (PORTABLE) 04/19/2025 REASON FOR EXAM: NGT VERIFICATION TECHNIQUE: Procedure Code: RADABD_P Modality: DX Procedure: Limited AP portable view of the lower chest and upper abdomen for feeding tube placement COMPARISON: Prior study of 04/17/2025. RAD/Abdomen Single View (Portable) IMPRESSION: A nasogastric tube is seen with tip projecting of the mid stomach. Probable small left pleural effusion. No evidence of pneumoperitoneum. The visualized upper abdomen shows no bowel-gas pattern abnormality. Reading Location: [id number]
[2025-04-19] MEDS: Potassium Chloride Oral Tablet 20 MEQ GT (16:24)
[2025-04-19] MEDS: TICAGRELOR 90 MG TABLET GT ×2 (16:24→20:57)
[2025-04-20] VITALS (13 sets, daily range): BP systolic 132–159; BP diastolic 57–90; PULSE 74–106; RESP 18–25; TEMP 36.2–37.6; O2SAT 88–98; BMI 44.7
[2025-04-20] MEDS: Ampicillin/Sulbactam 3 GM in 0.9% Normal Saline (100mL MB+) 100 ML IV ×5 (00:42→23:14)
[2025-04-20] MEDS: 0.9% Normal Saline (250mL Bag) 250 ML 15 ML IV (05:37)
[2025-04-20 05:51] LABS: Hematocrit 36.1 % (37-47); Hemoglobin 12.2 g/dL (12.0-15.0); Immature Granulocytes Count 0.100 X10^3/uL (0.0-0.0); Mean Corp Hgb Conc 33.8 g/dL (32-36); Mean Corpuscular Volume 104.0 fL (81-99); Mean Platelet Vol. 11.0 fl (6.2-12.0); NRBC Flagged by Analyzer 0 % (0-5); Platelet Count 150 K/mm3 (150-450); RBC Distribution Width CV 12.6 % (11.6-14.6); RBC Distribution Width SD 47.8 fl (35.1-43.9); Red Blood Count 3.47 M/mm3 (4.2-5.4); White Blood Count 13.1 K/mm3 (4.4-11.0)
[2025-04-20 06:13] LABS: Anion Gap 12 (5-15); BUN 30 mg/dL (4-19); BUN/Creat Ratio 26.7 RATIO (10-20); Calcium,Total 8.0 mg/dL (7.6-11.0); Carbon Dioxide 24.9 mmol/L (21.0-32.0); Chloride 105 mmol/L (98-108); Estimated Creatinine Clearance 39.69 ml/min (50-250); Glucose 89 mg/dL (70-99); Potassium 3.2 mmol/L (3.3-5.1)
--- NOTE | 2025-04-20 08:10 | PN.HOSP_ITS ---
Reason for Visit Chief Complaint: Arm and jaw pain Subjective Subjective Patient thought that nurses were taking care of her last night want to leave her to . She said that she did not feel threatened by these nurses but they felt that they are just going to let her but without offering real specifics about what actually happened. Still with pain. Objective Data Objective Data Vital Signs: Vital Signs Temp Pulse Resp BP Pulse Ox O2 Del Method O2 Flow Rate 37.1 C 90 23 H 132/60 H 96 Room Air 2 04/20/25 06:00 04/20/25 06:00 04/20/25 06:00 04/20/25 06:00 04/20/25 07:00 04/20/25 07:00 04/20/25 05:00 FiO2 30 04/19/25 07:11 Oxygen Flow Rate (L/min) 2 Oxygen Delivery Method Room Air Weight: 96.7 kg Body Mass Index (BMI) 44.7 Intake & Output: Intake and Output for Last 24 Hours 04/18/25 04/19/25 04/20/25 23:59 23:59 23:59 Intake Total 1417.79 / 1431.59 1178.04 / 1178.04 200 / 200 Output Total 2100 / 2100 2510 / 3035 820 / 820 Balance -682.21 / -668.41 -1331.96 / -1856.96 -620 / -620 Lab / Micro Data 04/20/25 05:30 04/20/25 05:30 Labs: Laboratory Results - last 24 hr 04/20/25 05:30: WBC 13.1 H, RBC 3.47 L, Hgb 12.2, Hct 36.1 L, MCV 104.0 H, MCH 35.2 H, MCHC 33.8, RDW Std Deviation 47.8 H, RDW Coeff of Kari 12.6, Plt Count 150, MPV 11.0, Immature Gran % (Auto) 0.800, Neut % (Auto) 77.6 H, Lymph % (Auto) 8.4 L, [place] % (Auto) 10.3 H, Eos % (Auto) 2.3, Baso % (Auto) 0.6, A bsolute Neuts (auto) 10.2 H, Absolute Lymphs (auto) 1.10, Nucleated RBC % 0, Sodium 142, Potassium 3.2 L, Chloride 105, Carbon Dioxide 24.9, Anion Gap 12, B UN 30 H, Creatinine 1.12, Estim Creat Clear Calc 39.69 L, Est GFR (MDRD) Non-Af 49 L, BUN/Creatinine Ratio 26.7 H, Glucose 89, Calcium 8.0 Micro: Microbiology 04/16/25 19:45 Sputum, Induced/Lukens Gram Stain - Final 04/16/25 19:45 Sputum, Induced/Lukens Respiratory Culture - Final Mixed normal respiratory suzan. No Streptococcus pneumoniae, beta-hemolytic Streptococcus or Staphylococcus aureus isolated. Radiography Diagnostic Testing: Radiology Impression KUB X-Ray 04/19/25 15:40 IMPRESSION: A nasogastric tube is seen with tip projecting of the mid stomach. Probable small left pleural effusion. No evidence of pneumoperitoneum. The visualized upper abdomen shows no bowel-gas pattern abnormality. Reading Location: [address] Rhythm Strip Rhythm Strip: Sinus Rhythm Rate: 65 Ectopy: - (Prolonged QT interval) Physical Exam Const alert and no apparent distress HEENT head/scalp atraumatic and moist oral mucous membranes Resp normal respiratory effort, no retractions, no use of accessory muscles and clear to auscultation bilaterally Cardio regular rate, regular rhythm, S1 normal heart sound and S2 normal heart sound Extremity normal to inspection Neuro Sensorium / Orientation: awake and alert Assessment & Plan Assessment/Plan (1) Cardiac arrest: (2) Flash pulmonary edema: (3) Respiratory failure: QUALIFIERS: Chronicity: acute Respiratory failure complication: h ypoxia Qualified Code(s): J96.01 - Acute respiratory failure with hypoxia (4) Polymorphic ventricular tachycardia: (5) CAD (coronary artery disease): QUALIFIERS: Associated angina: with unstable angina Coronary Disease-Associated Artery/Lesion type: [place] artery [place] vs. transplanted heart: [place] heart Qualified Code(s): I25.110 - Atherosclerotic heart disease of [place] coronary artery with unstable angina pectoris PLAN: Plan Cardiac arrest secondary to LCX thrombus (NSTEMI) * Patient with pulseless V. 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 Stage II DD. * Cardiology following. Acute hypoxic hypercapnic respiratory failure secondary to flash pulmonary edema (acute HFrEF) +/- aspiration * Post first ROSC patient ended up vomiting and was 87% on room air, she was placed on Airvo however within a matter of minutes she was 60% on high oxygen requirements and required intubation * Patient with frothy pink secretions during intubation and repeat chest x-ray showed increased pulmonary edema * Nitro drip DC'd, 40 IV twice daily Lasix ordered with potassium * Coreg and losartan as BP allows. * Continue IV Lasix * Daily weights, I's and O's * on amp/SB given concerns for aspiration. * extubated 04/19 * Started on carvedilol 3.125 twice daily and losartan 25 daily Cardiogenic shock * / CPA * weaned off norepinephrine. A-fib with RVR * Post ROSC the second time patient went into A-fib with RVR and was started on amio drip in addition to the heparin * Unclear if there could have been longer history of A-fib or if this is all new after cardiac event * amio discontinued given prolonged QT * TSH was within normal limits * Will monitor on telemetry Dysphagia * Failed post extubation. Continue work with speech therapy. Given the need for ticagrelor and other medications, NG tube was placed Depression/anxiety * Patient was seen that the nursing staff was going to let her last night. Did not offer specifics. Try to reassure her that that is not the case particularly since we quite literally brought her back from the with cardiac arrest. She did seem slightly reassured by that. But I did also tell her if she is having concerns about the her care or if they are not caring for her properly that there are individuals who can address those concerns. * Concerned the patient may have some PTSD after events that have transpired for her. Chronic medical conditions: * obesity class III: BMI documented as 43.9 kg/m? at time of admission. Complicates treatment, prognosis, outcomes. DVT ppx: SCDs Charges/Coding Visit Charges Inpatient E&M: 45228 Subs Hosp L2
[2025-04-20] MEDS: Potassium Chloride Oral Tablet 20 MEQ GT ×2 (08:58→16:12)
[2025-04-20] MEDS: TICAGRELOR 90 MG TABLET GT ×2 (08:58→21:35)
[2025-04-20] MEDS: Pantoprazole Sodium 40 MG in 0.9% Normal Saline (100mL MB+) 100 ML 300 MG IV (08:59)
[2025-04-20] MEDS: 0.9% Saline Lock 10 ML Syringe IV ×2 (08:59→17:57)
[2025-04-20] MEDS: CHLORHEXIDINE GLUC 2% CLOTH 1 EACH TOWELETTE TOPICAL (08:59)
--- NOTE | 2025-04-20 11:14 | PN.CC_ITS ---
Objective Data Objective Data Vital Signs: Vital Signs Last response 3 Temperature 37.1 C 04/20/25 09:00 Temperature Source Core 04/20/25 09:00 Pulse Rate 101 H 04/20/25 09:00 Pulse Strength Weak (1+) 04/19/25 10:00 Respiratory Rate 24 H 04/20/25 09:00 Respiratory Effort Normal, Non-Labored 04/20/25 08:00 Respiratory Depth Normal 04/20/25 08:00 Respiratory Pattern Tachypnea 04/20/25 08:00 Blood Pressure 156/90 H 04/20/25 09:00 Blood Pressure Mean 112 04/20/25 09:00 Blood Pressure Source Monitor 04/20/25 06:00 Blood Pressure Position Semi-Fowlers 04/20/25 06:00 Blood Pressure Location Left Arm 04/20/25 06:00 Pulse Ox 95 04/20/25 09:00 Oxygen Delivery Method Nasal Cannula 04/20/25 09:00 Oxygen Flow Rate (L/min) 2 04/20/25 09:00 Fraction of Inspired Oxygen (FIO2) 30 04/19/25 07:11 I&O: I&O Last 24 Hours 3 04/19/25 04/19/25 04/20/25 11:59 23:59 11:59 Intake Total 629.04 / 1178.04 549 / 1178.04 407 / 407 Output Total 1300 / 3035 1210 / 3035 820 / 820 Balance -670.96 / -1856.96 -661 / -1856.96 -413 / -413 I&O: Total Stay 3 04/16/25 13:09 thru 04/20/25 10:45 Intake Total 6842.06 Output Total 8210 Balance -1367.94 Current Meds Ordered / Administered: Current meds ordered / Administered 3 Generic Name Dose Route Start Last Admin Trade Name Freq PRN Reason Stop Dose Admin Acetaminophen 650 mg 04/19/25 15:35 Acetaminophen 325 Mg Tablet GT Q6H PRN PRN Pain Score 1-10 Albuterol Sulfate 2.5 mg 04/16/25 17:40 Albuterol 2.5 Mg/3 Ml Vial.Neb. INHALATION Q2H PRN PRN SOB &/OR WHEEZING Aspirin 81 mg 04/20/25 08:00 04/20/25 08:58 Aspirin 81 Mg Tab.Chew GT 81 mg BREAKFAST TONY Administration Atorvastatin Calcium 40 mg 04/19/25 22:00 04/19/25 20:57 Atorvastatin Calcium 40 Mg Tablet GT 40 mg QHS TONY Administration Atropine Sulfate 0.5 mg 04/16/25 17:08 Atropine Sulfate 1 Mg/10 Ml Syringe IV UD PRN HR <50 bpm Calamine/Phenol 1 applic 04/17/25 10:00 04/20/25 08:59 Menthol/Lanolin/Calamine/Znox 113 Gm Tube TOPICAL 1 applic BID TONY Administration Protocol Carvedilol 3.125 mg 04/19/25 22:00 04/20/25 08:59 Carvedilol 3.125 Mg Tablet GT 3.125 mg BID TONY Administration Chlorhexidine Gluconate 1 each 04/19/25 10:00 04/20/25 08:59 Chlorhexidine Gluc 2% Cloth 1 Each [place] TOPICAL 1 each DAILY TONY Administration Furosemide 40 mg 04/16/25 18:00 04/20/25 08:59 Furosemide 40 Mg/4 Ml Vial IV 40 mg BIDLX TONY Administration Protocol Sodium Chloride 250 mls @ 15 mls/hr 04/16/25 17:27 04/20/25 10:45 IV Infused .[id number] PRN Infusion Saline Flush Sodium Chloride 250 mls @ 15 mls/hr 04/16/25 17:27 IV .[id number] PRN Additional IVPB Infusion Pantoprazole Sodium 40 mg/ 100 mls @ 300 mls/hr 04/17/25 10:00 04/20/25 10:45 Sodium Chloride IV Infused Q24 TONY Infusion Norepinephrine Bitartrate 8 mg 250 mls @ 9.375 mls/hr 04/16/25 18:20 04/20/25 02:50 / Sodium Chloride CONT INF Not Given .[id number] TONY Protocol 5 MCG/MIN Ampicillin Sodium/Sulbactam 100 mls @ 150 mls/hr 04/16/25 18:30 04/20/25 06:20 Sodium 3 gm/ Sodium Chloride IV Infused Q6 TONY Infusion Losartan Potassium 25 mg 04/20/25 10:00 04/20/25 08:59 Losartan Potassium 25 Mg Tablet GT 25 mg DAILY TONY Administration Nitroglycerin 0.4 mg 04/16/25 17:08 Nitroglycerin (Inpatient Use) 0.4 Mg Tab.Subl SL Q5M PRN CARDIAC/CHEST PAIN Nystatin 1 applic 04/17/25 10:00 04/20/25 08:59 Nystatin Powder 15gm Bottle TOPICAL 1 applic BID TONY Administration Protocol Ondansetron HCl 4 mg 04/19/25 11:52 04/19/25 12:05 Ondansetron 4 Mg/2 Ml Vial IV 4 mg Q6H PRN PRN Administration NAUSEA/VOMITING Potassium Chloride 20 meq 04/19/25 17:00 04/20/25 08:58 Potassium Chloride Oral Tablet 20 Meq GT 20 meq BIDCM TONY Administration Senna/Docusate Sodium 2 tablet 04/19/25 15:37 Senna/Docusate Sodium 1 Tablet GT BID PRN PRN Constipation Sodium Chloride 500 ml 04/16/25 17:08 0.9% Normal Saline 500 Ml Iv.Soln. IV BOLUS PRN VASO-VAGAL PROTOCOL Sodium Chloride 10 - 40 ml 04/16/25 17:27 04/20/25 08:59 0.9% Saline Lock 10 Ml Syringe IV 20 ml UD PRN Administration SALINE FLUSH Ticagrelor 90 mg 04/19/25 22:00 04/20/25 08:58 Ticagrelor 90 Mg Tablet GT 90 mg BID TONY Administration Lab / Micro Data Attestation: I reviewed the patient's lab results. 04/20/25 05:30 04/20/25 05:30 Labs: Laboratory Results - last 24 hr 04/20/25 05:30: WBC 13.1 H, RBC 3.47 L, Hgb 12.2, Hct 36.1 L, MCV 104.0 H, MCH 35.2 H, MCHC 33.8, RDW Std Deviation 47.8 H, RDW Coeff of Kari 12.6, Plt Count 150, MPV 11.0, Immature Gran % (Auto) 0.800, Neut % (Auto) 77.6 H, Lymph % (Auto) 8.4 L, [place] % (Auto) 10.3 H, Eos % (Auto) 2.3, Baso % (Auto) 0.6, A bsolute Neuts (auto) 10.2 H, Absolute Lymphs (auto) 1.10, Nucleated RBC % 0, Sodium 142, Potassium 3.2 L, Chloride 105, Carbon Dioxide 24.9, Anion Gap 12, B UN 30 H, Creatinine 1.12, Estim Creat Clear Calc 39.69 L, Est GFR (MDRD) Non-Af 49 L, BUN/Creatinine Ratio 26.7 H, Glucose 89, Calcium 8.0 Micro: Microbiology 04/16/25 19:45 Sputum, Induced/Lukens Gram Stain - Final 04/16/25 19:45 Sputum, Induced/Lukens Respiratory Culture - Final Mixed normal respiratory suzan. No Streptococcus pneumoniae, beta-hemolytic Streptococcus or Staphylococcus aureus isolated. Rhythm Strip Rhythm Strip: Sinus Rhythm Rate: 65 Ectopy: - (Prolonged QT interval) Imaging Radiology Impression KUB X-Ray 04/19/25 15:40 IMPRESSION: A nasogastric tube is seen with tip projecting of the mid stomach. Probable small left pleural effusion. No evidence of pneumoperitoneum. The visualized upper abdomen shows no bowel-gas pattern abnormality. Reading Location: [address] Assessment and Plan . Assessment and plan: IMPRESSIONS: 1. Acute respiratory failure with hypoxemia and hypercapnia status post cardiac arrest - ROSC achieved quickly - due to acute LAD occlusion, s/p PCI - extubated with low oxygen requirements - suspected aspiration event without current clinical sequelae - no obvious JERI but her psychomotor slowing is notable- would follow. Encouraging is her ability to write notes and respond appropriately to questions - no need for ongoing critical care consultation noted but please call if further needs arise 2. Coronary artery disease/atrial fibrillation with RVR/morbid obesity Complicates care, management, recovery and prognosis. Continue supportive measures as noted above. PT/OT to work with the patient. Critical Care Time:50 minutes The entirety of this encounter was done via Telemedicine Physical Exam Const alert and oriented x3 General Appearance: lethargic HEENT normocephalic General Ear: hearing grossly impaired Mouth: OG tube in place Neck full ROM Resp normal respiratory effort and no use of accessory muscles Cardio regular rate Psych Psych Narrative: significant psychomotor retardation but writing legibly on notepad Subjective Subjective Events reviewed- she was successfully extubated yesterday and has been transferred out of ICU. She failed swallow test so has NGT. States she slept poorly.
[2025-04-20] MEDS: Jevity 1.5 1,000 ML 15 ML NG (13:49)
[2025-04-21 03:20] VITALS: BP 150/71; PULSE 95; RESP 18; TEMP 36.7; O2SAT 99
[2025-04-21 04:37] VITALS: BP 167/78; PULSE 87; RESP 28; O2SAT 99
[2025-04-21] MEDS: Ampicillin/Sulbactam 3 GM in 0.9% Normal Saline (100mL MB+) 100 ML IV ×4 (04:59→23:36)
[2025-04-21 05:37] VITALS: BMI 40.5
[2025-04-21 06:15] LABS: Hematocrit 38.2 % (37-47); Hemoglobin 13.0 g/dL (12.0-15.0); Immature Granulocytes Count 0.080 X10^3/uL (0.0-0.0); Mean Corp Hgb Conc 34.0 g/dL (32-36); Mean Corpuscular Volume 101.3 fL (81-99); Mean Platelet Vol. 11.0 fl (6.2-12.0); NRBC Flagged by Analyzer 0 % (0-5); POSITIVE DIFFERENTIAL YES; Platelet Count 178 K/mm3 (150-450); RBC Distribution Width CV 12.2 % (11.6-14.6); RBC Distribution Width SD 45.4 fl (35.1-43.9); Red Blood Count 3.77 M/mm3 (4.2-5.4); White Blood Count 13.3 K/mm3 (4.4-11.0)
[2025-04-21 06:18] LABS: Differential Indicated SCAN CRITERIA MET
[2025-04-21 06:37] LABS: Anion Gap 12 (5-15); BUN 27 mg/dL (4-19); BUN/Creat Ratio 26.6 RATIO (10-20); Calcium,Total 8.3 mg/dL (7.6-11.0); Carbon Dioxide 27.0 mmol/L (21.0-32.0); Chloride 103 mmol/L (98-108); Estimated Creatinine Clearance 42.68 ml/min (50-250); Glucose 129 mg/dL (70-99); Potassium 2.9 mmol/L (3.3-5.1)
[2025-04-21 06:42] LABS: Differential Comment SCANNED
[2025-04-21 06:58] VITALS: O2SAT 95
[2025-04-21 07:15] LABS: Magnesium 1.9 mg/dL (1.5-2.2)
--- NOTE | 2025-04-21 09:14 | PN.HOSP_ITS ---
Reason for Visit Chief Complaint: Arm and jaw pain Subjective Subjective Breathing okay. Still has NG tube but has been allowed to have thickened liquids with teaspoon and nursing involvement. Objective Data Objective Data Vital Signs: Vital Signs Temp Pulse Resp BP Pulse Ox O2 Del Method O2 Flow Rate 36.7 C 87 28 H 167/78 H 99 Nasal Cannula 2 04/21/25 03:20 04/21/25 04:37 04/21/25 04:37 04/21/25 04:37 04/21/25 04:37 04/21/25 04:37 04/21/25 04:37 FiO2 30 04/19/25 07:11 Oxygen Flow Rate (L/min) 2 Oxygen Delivery Method Nasal Cannula Weight: 88 kg Body Mass Index (BMI) 40.5 Intake & Output: Intake and Output for Last 24 Hours 04/19/25 04/20/25 04/21/25 23:59 23:59 23:59 Intake Total 1178.04 / 1178.04 1249.5 / 1249.5 100 / 100 Output Total 2510 / 3035 4390 / 4390 275 / 275 Balance -1331.96 / -1856.96 -3140.5 / -3140.5 -175 / -175 Lab / Micro Data 04/21/25 05:29 04/21/25 05:29 Labs: Laboratory Results - last 24 hr 04/21/25 05:29: WBC 13.3 H, RBC 3.77 L, Hgb 13.0, Hct 38.2, MCV 101.3 H, MCH 34.5 H, MCHC 34.0, RDW Std Deviation 45.4 H, RDW Coeff of Kari 12.2, Plt Count 178, MPV 11.0, Immature Gran % (Auto) 0.600, Neut % (Auto) 75.2 H, Lymph % (Auto) 8.1 L, [place] % (Auto) 12.4 H, Eos % (Auto) 3.2, Baso % (Auto) 0.5, A bsolute Neuts (auto) 10.0 H, Absolute Lymphs (auto) 1.08, Nucleated RBC % 0, Differential Comment SCANNED, Sodium 142, Potassium 2.9 L, Chloride 103, Carbon Dioxide 27.0, Anion Gap 12, BUN 27 H, Creatinine 1.02, Estim Creat Clear Calc 42.68 L, Est GFR (MDRD) Non-Af 55 L, BUN/Creatinine Ratio 26.6 H, Glucose 129 H, Calcium 8.3, Magnesium 1.9 Micro: Microbiology 04/16/25 19:45 Sputum, Induced/Lukens Gram Stain - Final 04/16/25 19:45 Sputum, Induced/Lukens Respiratory Culture - Final Mixed normal respiratory suzan. No Streptococcus pneumoniae, beta-hemolytic Streptococcus or Staphylococcus aureus isolated. Rhythm Strip Rhythm Strip: Sinus Rhythm Rate: 65 Ectopy: - (Prolonged QT interval) Physical Exam Const alert and no apparent distress Constitutional Narrative: Up in bed. Speech coherent. HEENT HEENT Narrative: NG tube in place. Resp normal respiratory effort, no retractions, no use of accessory muscles and clear to auscultation bilaterally Cardio regular rate, regular rhythm, S1 normal heart sound and S2 normal heart sound GI normal to inspection, nondistended, normoactive bowel sounds, soft to palpation, non-tender and non-distended Extremity normal to inspection and full ROM Neuro Sensorium / Orientation: awake Assessment & Plan Assessment/Plan (1) Cardiac arrest: (2) Flash pulmonary edema: (3) Respiratory failure: QUALIFIERS: Chronicity: acute Respiratory failure complication: h ypoxia Qualified Code(s): J96.01 - Acute respiratory failure with hypoxia (4) Polymorphic ventricular tachycardia: (5) CAD (coronary artery disease): QUALIFIERS: Associated angina: with unstable angina Coronary Disease-Associated Artery/Lesion type: [place] artery [place] vs. transplanted heart: [place] heart Qualified Code(s): I25.110 - Atherosclerotic heart disease of [place] coronary artery with unstable angina pectoris PLAN: Plan Cardiac arrest secondary to LCX thrombus (NSTEMI) * Patient with pulseless V. tach arrest in the ED requiring defibrillation and achieved ROSC and subsequent respiratory arrest with PEA * Subsequently taken emergently to the Course Developer on a heparin drip, Amio drip and nitroglycerin drip * In Course Developer [employer] SCI[employer] PROFESSOR Mid LAD, 100% mid LCX with thrombus, 50-60% mid RCA and successful PTCA/JEREMIE to mid LCX * Recommendation for aspirin indefinitely and P2 Y12 for at least 6 months * Echo shows an EF of 40-45%. Stage II DD. * Cardiology following. Acute hypoxic hypercapnic respiratory failure secondary to flash pulmonary edema (acute HFrEF) +/- aspiration * Post first ROSC patient ended up vomiting and was 87% on room air, she was placed on Airvo however within a matter of minutes she was 60% on high oxygen requirements and required intubation * Patient with frothy pink secretions during intubation and repeat chest x-ray showed increased pulmonary edema * Nitro drip DC'd, 40 IV twice daily Lasix ordered with potassium * Coreg and losartan as BP allows. * Continue IV Lasix * Daily weights, I's and O's * on amp/SB given concerns for aspiration. * extubated 04/19 * Started on carvedilol 3.125 twice daily and losartan 25 daily Cardiogenic shock * 08/26 CPA * weaned off norepinephrine. A-fib with RVR * Post ROSC the second time patient went into A-fib with RVR and was started on amio drip in addition to the heparin * Unclear if there could have been longer history of A-fib or if this is all new after cardiac event * amio discontinued given prolonged QT * TSH was within normal limits * Will monitor on telemetry Dysphagia * Failed post extubation. Continue work with speech therapy. Given the need for ticagrelor and other medications, NG tube was placed for medications and tube feeds have been initiated. * MBSS for the * Currently, may have thickened liquids via teaspoon with nursing assistance, but otherwise NPO. Depression/anxiety * Patient was seen that the nursing staff was going to let her last night. Did not offer specifics. Try to reassure her that that is not the case particularly since we quite literally brought her back from the with cardiac arrest. She did seem slightly reassured by that. But I did also tell her if she is having concerns about the her care or if they are not caring for her properly that there are individuals who can address those concerns. * Concerned the patient may have some PTSD after events that have transpired for her. Chronic medical conditions: * obesity class III: BMI documented as 43.9 kg/m? at time of admission. Complicates treatment, prognosis, outcomes. DVT ppx: SCDs
[2025-04-21 09:55] VITALS: BP 121/109; PULSE 81; RESP 16; TEMP 36.1; O2SAT 93
[2025-04-21] MEDS: Potassium Chloride Oral Tablet 20 MEQ GT ×2 (10:09→17:47)
[2025-04-21] MEDS: TICAGRELOR 90 MG TABLET GT ×2 (10:09→21:21)
[2025-04-21] MEDS: Pantoprazole Sodium 40 MG in 0.9% Normal Saline (100mL MB+) 100 ML 300 MG IV (10:34)
[2025-04-21] MEDS: Potassium Chloride Oral Tablet 20 MEQ 40 MEQ PO (10:43)
[2025-04-21 16:00] VITALS: BP 117/89; PULSE 85; RESP 18; TEMP 36.6; O2SAT 95
[2025-04-21] MEDS: CHLORHEXIDINE GLUC 2% CLOTH 1 EACH TOWELETTE TOPICAL (17:47)
[2025-04-21 21:20] VITALS: BP 155/77; PULSE 97; RESP 18; TEMP 36.3; O2SAT 94
[2025-04-22] MEDS: Jevity 1.5 1,000 ML 40 ML NG (02:06)
[2025-04-22 03:10] VITALS: BMI 40.8
[2025-04-22 03:20] VITALS: BP 145/81; PULSE 88; RESP 18; TEMP 36.9; O2SAT 94
[2025-04-22] MEDS: Ampicillin/Sulbactam 3 GM in 0.9% Normal Saline (100mL MB+) 100 ML IV ×4 (05:32→23:44)
[2025-04-22 05:34] LABS: Hematocrit 41.8 % (37-47); Hemoglobin 14.2 g/dL (12.0-15.0); Immature Granulocytes Count 0.100 X10^3/uL (0.0-0.0); Mean Corp Hgb Conc 34.0 g/dL (32-36); Mean Corpuscular Volume 101.2 fL (81-99); Mean Platelet Vol. 10.6 fl (6.2-12.0); NRBC Flagged by Analyzer 0 % (0-5); POSITIVE DIFFERENTIAL YES; Platelet Count 183 K/mm3 (150-450); RBC Distribution Width CV 12.5 % (11.6-14.6); RBC Distribution Width SD 46.4 fl (35.1-43.9); Red Blood Count 4.13 M/mm3 (4.2-5.4); White Blood Count 13.4 K/mm3 (4.4-11.0)
[2025-04-22 05:37] LABS: Differential Indicated SCAN CRITERIA MET
[2025-04-22 06:04] LABS: Anion Gap 14 (5-15); BUN 28 mg/dL (4-19); BUN/Creat Ratio 28.7 RATIO (10-20); Calcium,Total 8.8 mg/dL (7.6-11.0); Carbon Dioxide 27.2 mmol/L (21.0-32.0); Chloride 103 mmol/L (98-108); Estimated Creatinine Clearance 44.20 ml/min (50-250); Glucose 111 mg/dL (70-99); Potassium 3.2 mmol/L (3.3-5.1)
[2025-04-22 06:11] LABS: Anisocytosis 1+; Differential Comment SCANNED; Macrocytosis 1+; Vacuolated Cells 1+
[2025-04-22 08:00] VITALS: O2SAT 95
[2025-04-22 09:06] VITALS: BP 159/78; PULSE 93; RESP 18; TEMP 36.3; O2SAT 94
[2025-04-22] MEDS: Potassium Chloride Oral Soln 20 MEQ/15 ML UDC 40 MEQ GT (09:08)
[2025-04-22] MEDS: Potassium Chloride Oral Tablet 20 MEQ GT ×2 (09:08→18:38)
[2025-04-22] MEDS: TICAGRELOR 90 MG TABLET GT ×2 (09:10→21:22)
[2025-04-22] MEDS: Pantoprazole Sodium 40 MG in 0.9% Normal Saline (100mL MB+) 100 ML 300 MG IV (09:13)
[2025-04-22] MEDS: Senna/Docusate Sodium 1 Tablet 2 TABLET GT (10:09)
--- NOTE | 2025-04-22 10:27 | CASEMGMT ---
Discharge Planning A list of SNF providers including quality and resource use data and consistent with the patient's preferred geographic region ([id number]), medical needs, and insurance network was created in [facility] Guide.? This list was provided to the SW. Tiera Garcia Discharge Planning Asst.
--- NOTE | 2025-04-22 11:18 | CASEMGMT ---
Social Work SW provided the patient a list of SNF providers including quality and resource use data and consistent with the patient's preferred geographic region, medical needs, and insurance network was created in [facility] Guide.?The patient reported her daughter be will in to see her today and they will review the lists. Patient requested a list in the [place] area and [place] area. SW informed the patient that medical transportation to a SNF in [place] will not be paid for by insurance. Plan: SW will follow up this afternoon for choices. MELANY Oh
--- NOTE | 2025-04-22 13:04 | ST.MBS ---
Modified Barium Swallow Patient Information Study Date: 04/22/25 Study Time: 14:00 Direct Billable Minutes: 105 Total Minutes procedure & reportin Diagnosis: Respiratory Failure J96.0 Referring Physician: Gayathri Page Reason for Referral: Assess swallow function, assess risk for aspiration, and determine recommendations for least restrictive diet textures and compensatory strategies to improve swallowing safety. Medical History: The patient presented to [facility] ED 04/16/2025 due to pain between her shoulder blades radiating to both arms. Shortly after arrival to the ED, she was found to be in pulseless V tach on telemetry and CODE BLUE was called. Patient required defibrillation x1 with conversion to atrial fibrillation with pulse. Pt had elevated HR and BP. CTA of the chest with no PE and findings suggestive of mild vascular congestion with scarring at the lung bases. She developed flash pulmonary edema and became hypoxic with escalating oxygen requirements and required emergent intubation, during intubation had PEA arrest, CPR done and ROSC obtained. Patient taken emergently to the [facility]...TICK ERADICATOR Mid LAD, 100% mid LCX with thrombus, 50-60% mid RCA and successful PTCA/JEREMIE to mid LCx. Pt remained intubated and was admitted to ICU for further care. She was extubated 04/19/[address] was consulted to assess swallow function and aspiration risk prior to diet advancement. 04/20/2025 BSE recommended the patient continue NPO w/ sips/chips permitted w/ nursing w/ plan for MBSS today. Due to difficulty w/ sips and chips, REPLENISHMENT ASSOCIATE on 04/21/2025 cleared her for mildly/nectar thick liquids by tsp w/ nursing w/ plan for MBSS today. Medical History (Updated 04/16/25 @ 18:[address] Diana Mayers MD) Acid reflux Anxiety Arthritis Constipation Depression Fatigue Hypertension SOB (shortness of breath) Current Diet Ordered: NPO, trials of mildly thick liquid w/ RN Dentition: Natural Teeth Mental Status: WNL Respiratory Status: Oxygenating on Room Air Penetration-Aspiration Scale Penetration-Aspiration Scale: OBJECTIVE ASSESSMENT OF SWALLOW FUNCTION (QUANTITATIVE ? PER TRIAL): PENETRATION / ASPIRATION SCALE (ARAUJO): 1 = does not enter airway 2 = enters airway/above vocal folds/ejected 3 = enters airway/above vocal folds/not ejected 4 = enters airway/contacts vocal folds/ejected 5 = enters airway/contacts vocal folds/not ejected 6 = enters airway/below vocal folds/ejected 7 = enters airway/below vocal folds/not ejected despite effort 8 = enters airway/below vocal folds/no effort VIDEOFLOROSCOPIC SCALE SCORE (ARAUJO): Grade I = aspiration of material that has penetrated into the laryngeal vestibule, intact cough reflex Grade II = aspiration < 10 % of the bolus, intact cough reflex Grade III = aspiration of < 10 % of the bolus, reduced cough reflex or aspiration of > 10 % of the bolus, intact cough reflex Grade IV = aspiration of > 10 % of the bolus, reduced cough reflex Penetration-Aspiration Scale Score Thin Liquid via teaspoon: Result: 2= enter airway/above vocal folds/ejected Thin Liquid via teaspoon Trial 2: Result: 8= enters airway/below vocal folds/no effort [place] Thick Liquid via teaspoon: Result: 3= enters airways/above vocal folds/not ejected Pudding via teaspoon Double swallow: Result: 1= does not enter airway Comment: Silent post prandial aspiration of residues remaining in the laryngeal vestibule from previous trials. Wet vocal quality. Cued a cough and re-swallow to somewhat clear aspirated contrast. 1/4 Cookie Double swallow: Result: 1= does not enter airway Thin Liquid via teaspoon Chin tuck: Result: 2= enter airway/above vocal folds/ejected Thin Liquid via teaspoon Chin tuck Trial 2: Result: 3= enters airways/above vocal folds/not ejected Thin Liquid via teaspoon Effortful swallow: Result: 8= enters airway/below vocal folds/no effort Comment: Cued a cough and re-swallow to somewhat clear aspirated contrast. [place] Thick Liquid via teaspoon Effortful swallow: Result: 8= enters airway/below vocal folds/no effort Comment: Cued a cough and re-swallow to somewhat clear aspirated contrast. [place] Thick Liquid via teaspoon Chin tuck: Result: 2= enter airway/above vocal folds/ejected [place] Thick Liquid via teaspoon Chin tuck Trial 2: Result: 2= enter airway/above vocal folds/ejected [place] Thick Liquid via single sip: straw: Result: 5= enters airways/contacts vocal folds/not ejected [place] Thick Liquid via teaspoon Chin tuck Trial 3: Result: 2= enter airway/above vocal folds/ejected Oral Phase Labial Seal: No Labial Escape Tongue Control During Bolus Hold: Posterior escape of less than half of bolus Bolus Preparation/Mastication: Timely and efficient chewing and mashing Bolus Transport/Lingual Motion: Repetitive/disorganized tongue motion Oral Residue: Residue collection on oral structures Pharyngeal Phase Initiation of Pharyngeal Swallow: Bolus head in pyriforms (mildly thick by tsp spilled to the laryngeal vestibule prior to swallow onset) Soft Palate Elevation: Trace column of contrast/air between soft palate and pharyngeal wall Laryngeal Elevation: Partial superior movement thyroid cart/partial apprx aryt-epig petiole Anterior Hyoid Excursion: Partial anterior movement Epiglottic Movement: Partial inversion Laryngeal Vestibule Closure at Height of Swallow: Incomplete; narrow column of air/contrast in laryngeal vestibule Pharyngeal Stripping Wave: Present - diminished Pharyngoesophageal Segment Opening: Complete distension and complete duration; no obstruction of flow Tongue Base Retraction: Narrow column of contrast between tongue base & post. pharyngeal wall Pharyngeal Residue: Collection of residue within or on pharyngeal structures Esophageal Phase Esophageal Clearance: Esophageal retention (Mild retention of pudding in the lower esophagus) Treatment Strategies Effects of treatment strategies attemped:: Double swallow = somewhat effective Decreased bolus size = somewhat effective Chin tuck = somewhat effective Effortful swallow = not effective Diagnosis/Impression Diagnosis: Moderate oropharyngeal dysphagia R13.12 MBS Impressions: The oral phase is primarily marked by... -Decreased bolus control w/ premature posterior loss of mildly thick by tsp spilling to the laryngeal vestibule prior to swallow onset. -Disorganized tongue motion for A-P transport with pudding. -Mild oral residues w/ pudding and cookie requiring verbal cues from the REPLENISHMENT ASSOCIATE to take a second swallow to mostly clear. The pharyngeal phase is primarily marked by... -Decreased pharyngeal motility due to decreased pharyngeal stripping wave and TB retraction w/ mild pharyngeal residues. Pt required verbal cues from REPLENISHMENT ASSOCIATE to take a second swallow to somewhat clear. -Decreased airway closure during the swallow due to decreased anterior hyoid excursion, laryngeal elevation, and partial epiglottic inversion. SILENT aspiration of thin liquids via tsp, thin liquids via tsp w/ effortful swallow, and mildly thick liquids via tsp w/ effortful swallow. Use of thickened liquids by tsp and w/ a chin tuck best decreased the patient's risk for aspiration. The esophageal phase is primarily marked by... -Mild retention of pudding in the lower esophagus. Recommendations Diet: Soft and Bite Sized Textures and Mildly Thick Liquids Comment: Medications crushed in applesauce Compensatory Strategies: Small Bites (DOUBLE SWALLOW ALL BITES), Small Sips (LIQUIDS BY TSP ONLY, CHIN TUCK W/ ALL SIPS), Slow Rate, Alternate bites/solids and sips/liquids, Sitting upright and Remain sitting upright for 30 minutes after PO intake Supervision: 1:1 Direct Supervision (Staff Supervision for Food and Drink) Recommend Repeat Modified Barium Swallow: Yes Comment: Repeat MBSS in 1-2 weeks after implementation of oropharyngeal exercise program to re-assess risk for aspiration to consider diet advancement of liquids. Would not recommend advancement of liquids prior to repeat MBSS due to silent nature of aspiration w/ both thin and thickened liquids. Need for Skilled Speech Therapy Services: Yes Comment: -Train the patient and family in use of strategies to decrease risk for aspiration. -Ongoing assessment of diet tolerance of recommended textures. Monitor respiratory status closely. Would not recommend advancement of liquids prior to repeat MBSS due to silent nature of aspiration w/ both thin and thickened liquids. -Train the patient in a thorough oral care routine. -Train the patient in oropharyngeal exercise program to improve airway closure and pharyngeal motility (Yoanna, Effortful, CTAR, Priyank). Education Completed: 1. Described result of evaluation., 2. Pt understands evaluation & agrees with goals and treatment plan., 4. Family/caregivers understand evaluation & agree w/ goals & tx plan. and 7. Pt requires further education on strategies & risks. Status Active ST Patient: Active Contact Information [facility] Speech Therapy:: Yudi Castellon M.A. [facility] Speech-Language Pathologist [facility] [address] [place] [address] [email or web address] [phone]
--- NOTE | 2025-04-22 14:22 | CASEMGMT ---
Addendum entered by Tiera Garcia 04/23/25 16:05: [facility] as accepted. 's updated. Tiera Garcia DC Planning Asst. Addendum entered by Tiera Garcia 04/23/25 12:04: [facility] have declined d/t not bed availability. Updates sent to [facility] (this marketing writer accidently omitted therapy notes in initial referral). Tiera Garcia DC Planning Asst. Addendum entered by Tiera Garcia 04/23/25 11:01: [facility] declined d/t no bed availability. Tiera Garcia DC Planning Asst. Addendum entered by Tiera Garcia 04/23/25 10:58: VM's left for the admissions dept at each snf. Tiera Garcia DC Planning Asst. Original Note: Discharge Planning Call rec'd from pts daughter with snf choices. Choices are as follows; [facility], [facility], and [facility]. Referrals sent to all. SW updated. Tiera Garcia DC Planning Asst.
--- NOTE | 2025-04-22 14:29 | CASEMGMT ---
Social Work SW spoke with the daughter and informed her that insurance will not pay to have her mother transported to a SNF in [place]. The daughter reported they will pay for the transportation. MELANY Oh
[2025-04-22 14:44] VITALS: BP 143/88; PULSE 88; RESP 16; TEMP 36.4; O2SAT 94
--- NOTE | 2025-04-22 16:22 | PN_ITS ---
Subjective Subjective Patient seen and examined with her nurse by her bedside. She had no active complaints. She still has the NG tube in situ. She had a modified barium swallow today. Review of systems otherwise negative. She has remained hemodynamically stable. Objective Data Objective Data Vital Signs: Vital Signs Temp Pulse Resp BP Pulse Ox O2 Del Method O2 Flow Rate 97.5 F L 88 16 143/88 H 94 Room Air 2 04/22/25 14:44 04/22/25 14:44 04/22/25 14:44 04/22/25 14:44 04/22/25 14:44 04/22/25 15:21 04/21/25 18:00 FiO2 30 04/19/25 07:11 Oxygen Flow Rate (L/min) 2 Oxygen Delivery Method Room Air Weight: 195 lb 12.328 oz Body Mass Index (BMI) 40.8 Intake & Output: Intake and Output for Last 24 Hours 04/20/25 04/21/25 04/22/25 23:59 23:59 23:59 Intake Total 1249.5 / 1249.5 1847.5 / 2087.5 880 / 880 Output Total 4390 / 4390 275 / 1525 2350 / 2350 Balance -3140.5 / -3140.5 1572.5 / 562.5 -1470 / -1470 Lab / Micro Data 04/22/25 05:06 04/22/25 05:06 Labs: Laboratory Results - last 24 hr 04/22/25 05:06: WBC 13.4 H, RBC 4.13 L, Hgb 14.2, Hct 41.8, MCV 101.2 H, MCH 34.4 H, MCHC 34.0, RDW Std Deviation 46.4 H, RDW Coeff of Kari 12.5, Plt Count 183, MPV 10.6, Immature Gran % (Auto) 0.700, Neut % (Auto) 73.2 H, Lymph % (Auto) 10.4 L, [place] % (Auto) 11.8 H, Eos % (Auto) 3.2, Baso % (Auto) 0.7, A bsolute Neuts (auto) 9.8 H, Absolute Lymphs (auto) 1.39, Nucleated RBC % 0, Differential Comment SCANNED, Toxic Vacuolation 1+, Platelet Estimate ADEQUATE, Anisocytosis 1+, Macrocytosis 1+, Sodium 144, Potassium 3.2 L, Chloride 103, Carbon Dioxide 27.2, Anion Gap 14, BUN 28 H, Creatinine 0.99, Estim Creat Clear Calc 44.20 L, Est GFR (MDRD) Non-Af 58 L, BUN/Creatinine Ratio 28.7 H, Glucose 111 H, Calcium 8.8 Micro: Microbiology 04/16/25 19:45 Sputum, Induced/Lukens Gram Stain - Final 04/16/25 19:45 Sputum, Induced/Lukens Respiratory Culture - Final Mixed normal respiratory suzan. No Streptococcus pneumoniae, beta-hemolytic Streptococcus or Staphylococcus aureus isolated. Rhythm Strip Rhythm Strip: Sinus Rhythm Rate: 65 Ectopy: - (Prolonged QT interval) Physical Exam Const alert, oriented x3 and no apparent distress General Appearance: cooperative HEENT head/scalp atraumatic, moist oral mucous membranes and oropharynx normal Eyes EOMs intact bilaterally Neck supple and no JVD Lymph Lymphatic: no lymphedema noted Resp normal respiratory effort, normal air movement and clear to auscultation bilaterally Cardio regular rate, regular rhythm, S1 normal heart sound, S2 normal heart sound and no murmurs GI normal to inspection, nondistended, normoactive bowel sounds, soft to palpation, non-tender and non-distended GI Narrative: NG tube in situ Extremity normal capillary refill and no clubbing, cyanosis or edema General Extremity: no tenderness to palpation of joints or extremities Skin General Skin Exam: no breakdown Neuro no focal motor deficits Motor Exam: strength 5/5 throughout and general weakness Psych thought process normal, cooperative and affect normal Appearance: appropriate Assessment & Plan Assessment/Plan (1) Cardiac arrest: (2) Polymorphic ventricular tachycardia: (3) Flash pulmonary edema: (4) Respiratory failure: QUALIFIERS: Chronicity: acute Respiratory failure complication: h ypoxia Qualified Code(s): J96.01 - Acute respiratory failure with hypoxia PLAN: Plan #Cardiac arrest due to non-STEMI * Patient was admitted with pulseless V. tach and cardiac arrest. She required defibrillation and achieved ROSC. She subsequently had PEA with respiratory failure and had emergent cardiac cath which showed occlusion of the mid LAD and 100% mid left circumflex occlusion with thrombus * She has successful PTCA with JEREMIE to the mid left circumflex artery. To be on aspirin indefinitely and on Brilinta for at least 6 months. * On high intensity statin * 2D echo showed EF of 40 to 45% with stage II diastolic dysfunction. Cardiology on board. #Acute hypoxic and hypercapnic respiratory failure due to acute close pulmonary edema failure due to ejection fraction * Was initially intubated but now extubated. * On Lasix. Was extubated on 04/20/2025. * On carvedilol and losartan * On IV Lasix. Also on losartan * On Unasyn due to concerns for aspiration pneumonia #Cardiogenic shock: Now resolved Hypokalemia: Potassium is 3.2. Will replace and monitor. #A-fib with RVR: TSH within normal limits. Was on amiodarone drip. Now in normal sinus rhythm. #Dysphagia: Had modified barium swallow today. She is on a modified diet. She tolerates a modified diet will DC the tube feeds. #Depression and anxiety: Currently not on any medication #Class II obesity: BMI is 40.9. Complicates acute care, expected recovery and prognosis. DVT prophylaxis: SCDs Charges/Coding Visit Charges Inpatient E&M: 43574 Subs Hosp L2
[2025-04-22 20:44] VITALS: BP 164/82; PULSE 92; RESP 18; TEMP 36.5; O2SAT 92
[2025-04-23 03:00] VITALS: BP 151/74; PULSE 82; RESP 16; TEMP 36.2; O2SAT 95
[2025-04-23 03:17] VITALS: BMI 40.6
[2025-04-23] MEDS: Ampicillin/Sulbactam 3 GM in 0.9% Normal Saline (100mL MB+) 100 ML IV ×2 (06:00→11:33)
[2025-04-23 06:04] LABS: Hematocrit 40.4 % (37-47); Hemoglobin 14.0 g/dL (12.0-15.0); Immature Granulocytes Count 0.120 X10^3/uL (0.0-0.0); Mean Corp Hgb Conc 34.7 g/dL (32-36); Mean Corpuscular Volume 99.5 fL (81-99); Mean Platelet Vol. 10.9 fl (6.2-12.0); NRBC Flagged by Analyzer 0 % (0-5); Platelet Count 199 K/mm3 (150-450); RBC Distribution Width CV 12.7 % (11.6-14.6); RBC Distribution Width SD 46.1 fl (35.1-43.9); Red Blood Count 4.06 M/mm3 (4.2-5.4); White Blood Count 15.8 K/mm3 (4.4-11.0)
[2025-04-23 06:55] LABS: Anion Gap 15 (5-15); BUN 29 mg/dL (4-19); BUN/Creat Ratio 29.4 RATIO (10-20); Calcium,Total 8.9 mg/dL (7.6-11.0); Carbon Dioxide 25.3 mmol/L (21.0-32.0); Chloride 104 mmol/L (98-108); Estimated Creatinine Clearance 44.51 ml/min (50-250); Glucose 135 mg/dL (70-99); Potassium 3.5 mmol/L (3.3-5.1)
[2025-04-23 09:37] VITALS: BP 169/74; PULSE 85; RESP 18; TEMP 36.6; O2SAT 94
[2025-04-23] MEDS: Potassium Chloride Oral Tablet 20 MEQ GT (09:42)
[2025-04-23] MEDS: TICAGRELOR 90 MG TABLET GT (09:42)
[2025-04-23] MEDS: Senna/Docusate Sodium 1 Tablet 2 TABLET GT (09:47)
[2025-04-23] MEDS: Pantoprazole Sodium 40 MG in 0.9% Normal Saline (100mL MB+) 100 ML 300 MG IV (09:47)
[2025-04-23] MEDS: Polyethylene Glycol 3350 17 GM PACKET PO (11:33)
--- NOTE | 2025-04-23 14:06 | PCM.PROGNOTE ---
Subjective Subjective Patient seen and examined with her nurse by her bedside. SHe complained of a cough and said her sputum expectorated was thicker and yellow today. She denied any fever of chills, cough, chest pain, palpitations, dizziness, nausea, vomiting or any other symptoms. Review of systems is othewise negative. Objective Data Objective Data Vital Signs: Vital Signs Temp Pulse Resp BP Pulse Ox O2 Del Method O2 Flow Rate 97.9 F 85 18 169/74 H 94 Room Air 2 04/23/25 09:37 04/23/25 09:37 04/23/25 09:37 04/23/25 09:37 04/23/25 09:37 04/23/25 10:00 04/21/25 18:00 FiO2 30 04/19/25 07:11 Oxygen Flow Rate (L/min) 2 Oxygen Delivery Method Room Air Weight: 194 lb 10.691 oz Body Mass Index (BMI) 40.6 Intake & Output: Intake and Output for Last 24 Hours 04/21/25 04/22/25 04/23/25 23:59 23:59 23:59 Intake Total 1847.5 / 2087.5 1400 / 1400 1400 / 1400 Output Total 275 / 1525 3150 / 3150 Balance 1572.5 / 562.5 -1750 / -1750 1400 / 1400 Lab / Micro Data 04/23/25 05:03 04/23/25 05:03 Labs: Laboratory Results - last 24 hr 04/23/25 05:03: WBC 15.8 H, RBC 4.06 L, Hgb 14.0, Hct 40.4, MCV 99.5 H, MCH 34.5 H, MCHC 34.7, RDW Std Deviation 46.1 H, RDW Coeff of Kari 12.7, Plt Count 199, MPV 10.9, Immature Gran % (Auto) 0.800, Neut % (Auto) 75.1 H, Lymph % (Auto) 10.8 L, [place] % (Auto) 9.4, Eos % (Auto) 3.5, Baso % (Auto) 0.4, Absolute Neuts (auto) 11.9 H, Absolute Lymphs (auto) 1.70, Nucleated RBC % 0, Sodium 144, Potassium 3.5, Chloride 104, Carbon Dioxide 25.3, Anion Gap 15, BUN 29 H, Creatinine 0.98, Estim Creat Clear Calc 44.51 L, Est GFR (MDRD) Non-Af 58 L, BUN/Creatinine Ratio 29.4 H, Glucose 135 H, Calcium 8.9 Micro: Microbiology 04/16/25 19:45 Sputum, Induced/Lukens Gram Stain - Final 04/16/25 19:45 Sputum, Induced/Lukens Respiratory Culture - Final Mixed normal respiratory suzan. No Streptococcus pneumoniae, beta-hemolytic Streptococcus or Staphylococcus aureus isolated. Rhythm Strip Rhythm Strip: Sinus Rhythm Rate: 65 Ectopy: - (Prolonged QT interval) Physical Exam Const alert, oriented x3 and no apparent distress Constitutional Narrative: Up in bed. Speech coherent. General Appearance: cooperative HEENT normocephalic, head/scalp atraumatic, moist oral mucous membranes and oropharynx normal Eyes EOMs intact bilaterally Neck supple and no JVD Lymph Lymphatic: no lymphedema noted Resp Resp Narrative: mildly diminished breath sounds bibasally, no wheezes or crackles. On room air. Cardio regular rate, regular rhythm, S1 normal heart sound, S2 normal heart sound and no murmurs GI normal to inspection, nondistended, normoactive bowel sounds, soft to palpation, non-tender and non-distended GI Narrative: NG tube in situ Extremity normal to inspection, full ROM, normal capillary refill and no clubbing, cyanosis or edema General Extremity: no tenderness to palpation of joints or extremities Skin General Skin Exam: no breakdown Neuro no focal motor deficits Sensorium / Orientation: awake and alert Motor Exam: general weakness Psych thought process normal, cooperative and affect normal Appearance: appropriate Assessment & Plan Assessment/Plan (1) Cardiac arrest: (2) Polymorphic ventricular tachycardia: (3) Flash pulmonary edema: (4) Respiratory failure: QUALIFIERS: Chronicity: acute Respiratory failure complication: hypoxia Qualified Code(s): J96.01 - Acute respiratory failure with hypoxia PLAN: Plan #Cardiac arrest due to non-STEMI Patient was admitted with pulseless V. tach and cardiac arrest. She required defibrillation and achieved ROSC. She subsequently had PEA with respiratory failure and had emergent cardiac cath which showed occlusion of the mid LAD and 100% mid left circumflex occlusion with thrombus She has successful PTCA with JEREMIE to the mid left circumflex artery. To be on aspirin indefinitely and on Brilinta for at least 6 months. On high intensity statin 2D echo showed EF of 40 to 45% with stage II diastolic dysfunction. Cardiology on board. #Acute hypoxic and hypercapnic respiratory failure due to acute close pulmonary edema failure due to ejection fraction Was initially intubated but now extubated. On Lasix. Was extubated on 04/20/2025. On carvedilol and losartan On Unasyn due to concerns for aspiration pneumonia. S He is still coughing and says her sputum is thicker and more yellowish. Will therfore continue IV unasyn. switch IV lasix to PO lasix #Cardiogenic shock: Now resolved Hypokalemia: resolved. K is 3.5. . #A-fib: TSH within normal limits. Now in normal sinus rhythm. On carvedilol 3.125mg bid. #Dysphagia: Had modified barium swallow yesterday which showed moderate oropharyngeal dysphagia. She is on a modified diet. Tube feeds dc'd. #Depression and anxiety: Currently not on any medication. Stable. To follow up with her PCP for treatment as needed. #Class II obesity: BMI is 40.9. Complicates acute care, expected recovery and prognosis. DVT prophylaxis: SCDs Disposition: will benefit from placement when medically stable.case management on board to help facilitae placement Charges/Coding Visit Charges Inpatient E&M: 70882 Subs Hosp L2
[2025-04-23 15:00] VITALS: BP 145/80; PULSE 90; RESP 16; TEMP 36.8; O2SAT 95
--- NOTE | 2025-04-23 15:46 | CASEMGMT ---
Social Work [facility] ERIKA called the daughter Mary and informed her of this. Mary wants to proceed with this SNF placement. ERIKA informed the [facility] clerical administrative assistant the family wants to proceed with this facility. [facility] will need to apply for precert. MELANY Oh
[2025-04-23] MEDS: Potassium Chloride Oral Tablet 20 MEQ PO (16:28)
[2025-04-23 21:25] VITALS: BP 135/87; PULSE 88; RESP 17; TEMP 36.8; O2SAT 96
[2025-04-23] MEDS: TICAGRELOR 90 MG TABLET PO (21:28)
[2025-04-23] MEDS: 0.9% Saline Lock 10 ML Syringe IV (21:31)
[2025-04-24 03:35] VITALS: BP 139/67; PULSE 82; RESP 16; TEMP 36.6; O2SAT 97
[2025-04-24 03:46] VITALS: BMI 40.7
[2025-04-24 06:19] LABS: Hematocrit 42.5 % (37-47); Hemoglobin 14.6 g/dL (12.0-15.0); Immature Granulocytes Count 0.110 X10^3/uL (0.0-0.0); Mean Corp Hgb Conc 34.4 g/dL (32-36); Mean Corpuscular Volume 101.7 fL (81-99); Mean Platelet Vol. 11.3 fl (6.2-12.0); NRBC Flagged by Analyzer 0 % (0-5); Platelet Count 220 K/mm3 (150-450); RBC Distribution Width CV 12.6 % (11.6-14.6); RBC Distribution Width SD 47.6 fl (35.1-43.9); Red Blood Count 4.18 M/mm3 (4.2-5.4); White Blood Count 12.9 K/mm3 (4.4-11.0)
[2025-04-24 07:09] LABS: Anion Gap 15 (5-15); BUN 33 mg/dL (4-19); BUN/Creat Ratio 29.9 RATIO (10-20); Calcium,Total 9.1 mg/dL (7.6-11.0); Carbon Dioxide 24.6 mmol/L (21.0-32.0); Chloride 105 mmol/L (98-108); Estimated Creatinine Clearance 40.04 ml/min (50-250); Glucose 103 mg/dL (70-99); Potassium 3.7 mmol/L (3.3-5.1)
--- NOTE | 2025-04-24 08:30 | CASEMGMT ---
Discharge Planning Updates sent to [facility] with request to submit for precert. Tiera Garcia DC Planning Asst.
[2025-04-24 10:50] VITALS: O2SAT 97
[2025-04-24 11:00] VITALS: BP 141/55; PULSE 83; RESP 16; TEMP 36.7; O2SAT 95
[2025-04-24] MEDS: Potassium Chloride Oral Tablet 20 MEQ PO ×2 (12:14→17:49)
[2025-04-24] MEDS: TICAGRELOR 90 MG TABLET PO ×2 (12:14→22:09)
[2025-04-24] MEDS: Pantoprazole Sodium 40 MG in 0.9% Normal Saline (100mL MB+) 100 ML 300 MG IV (12:59)
--- NOTE | 2025-04-24 13:14 | PN_ITS ---
Subjective Subjective Patient seen and examined with her nurse by her bedside. She had no active complaints. He had an uneventful night. Review of systems otherwise negative. She has remained hemodynamically stable. She is now awaiting placement. WBC has trended down to 12.9 today. Objective Data Objective Data Vital Signs: Vital Signs Temp Pulse Resp BP Pulse Ox O2 Del Method O2 Flow Rate 98.1 F 83 16 141/55 H 95 Room Air 2 04/24/25 11:00 04/24/25 11:00 04/24/25 11:00 04/24/25 11:00 04/24/25 11:00 04/24/25 11:00 04/21/25 18:00 FiO2 30 04/19/25 07:11 Oxygen Flow Rate (L/min) 2 Oxygen Delivery Method Room Air Weight: 194 lb 14.218 oz Body Mass Index (BMI) 40.7 Intake & Output: Intake and Output for Last 24 Hours 04/22/25 04/23/25 04/24/25 23:59 23:59 23:59 Intake Total 1400 / 1400 1400 / 1400 200 / 200 Output Total 3150 / 3150 Balance -1750 / -1750 1400 / 1400 200 / 200 Lab / Micro Data 04/24/25 05:11 04/24/25 05:11 Labs: Laboratory Results - last 24 hr 04/24/25 05:11: WBC 12.9 H, RBC 4.18 L, Hgb 14.6, Hct 42.5, MCV 101.7 H, MCH 34.9 H, MCHC 34.4, RDW Std Deviation 47.6 H, RDW Coeff of Kari 12.6, Plt Count 220, MPV 11.3, Immature Gran % (Auto) 0.900, Neut % (Auto) 70.7 H, Lymph % (Auto) 15.6 L, [place] % (Auto) 7.5, Eos % (Auto) 4.7, Baso % (Auto) 0.6, Absolute Neuts (auto) 9.1 H, Absolute Lymphs (auto) 2.00, Nucleated RBC % 0, Sodium 144, Potassium 3.7, Chloride 105, Carbon Dioxide 24.6, Anion Gap 15, BUN 33 H, Creatinine 1.09, Estim Creat Clear Calc 40.04 L, Est GFR (MDRD) Non-Af 51 L, B UN/Creatinine Ratio 29.9 H, Glucose 103 H, Calcium 9.1 Micro: Microbiology 04/23/25 11:40 Sputum, Expectorated/Coughed Gram Stain - Final 04/16/25 19:45 Sputum, Induced/Lukens Gram Stain - Final 04/16/25 19:45 Sputum, Induced/Lukens Respiratory Culture - Final Mixed normal respiratory suzan. No Streptococcus pneumoniae, beta-hemolytic Streptococcus or Staphylococcus aureus isolated. Rhythm Strip Rhythm Strip: Sinus Rhythm Rate: 65 Ectopy: - (Prolonged QT interval) Physical Exam Const alert, oriented x3 and no apparent distress General Appearance: cooperative HEENT normocephalic, head/scalp atraumatic, moist oral mucous membranes and oropharynx normal Eyes EOMs intact bilaterally Neck supple Lymph Lymphatic: no lymphedema noted Resp Resp Narrative: mildly diminished breath sounds bibasally, no wheezes or crackles. On room air. Cardio regular rate, regular rhythm, S1 normal heart sound, S2 normal heart sound and no murmurs GI normal to inspection, nondistended, normoactive bowel sounds, soft to palpation, non-tender and non-distended Extremity normal to inspection, full ROM, normal capillary refill and no clubbing, cyanosis or edema General Extremity: no tenderness to palpation of joints or extremities Skin General Skin Exam: no breakdown Neuro no focal motor deficits Sensorium / Orientation: awake and alert Motor Exam: strength 5/5 throughout and general weakness Psych thought process normal, cooperative and affect normal Appearance: appropriate Assessment & Plan Assessment/Plan (1) Cardiac arrest: (2) Polymorphic ventricular tachycardia: (3) Flash pulmonary edema: (4) Respiratory failure: QUALIFIERS: Chronicity: acute Respiratory failure complication: h ypoxia Qualified Code(s): J96.01 - Acute respiratory failure with hypoxia PLAN: Plan #Cardiac arrest due to non-STEMI * Patient was admitted with pulseless V. tach and cardiac arrest. She required defibrillation and achieved ROSC. She subsequently had PEA with respiratory failure and had emergent cardiac cath which showed occlusion of the mid LAD and 100% mid left circumflex occlusion with thrombus * She has successful PTCA with JEREMIE to the mid left circumflex artery. To be on aspirin indefinitely and on Brilinta for at least 6 months. * On high intensity statin * 2D echo showed EF of 40 to 45% with stage II diastolic dysfunction. Cardiology on board. #Acute hypoxic and hypercapnic respiratory failure due to acute close pulmonary edema failure due to ejection fraction * Was initially intubated but now extubated. * On Lasix. Was extubated on 04/20/2025. * On carvedilol and losartan * On p.o. Lasix. Completed a course of Unasyn yesterday. #Cardiogenic shock: Now resolved Hypokalemia: resolved. . #A-fib: TSH within normal limits. Now in normal sinus rhythm. On carvedilol 3.125mg bid. #Dysphagia: Had modified barium swallow yesterday which showed moderate oropharyngeal dysphagia. She is on a modified diet. Tube feeds dc'd. #Depression and anxiety: Currently not on any medication. Stable. To follow up with her PCP for treatment as needed. #Class II obesity: BMI is 40.9. Complicates acute care, expected recovery and prognosis. DVT prophylaxis: SCDs Disposition: Awaiting placement pending pre-CERT. Charges/Coding Visit Charges Inpatient E&M: 67793 Subs Hosp L2
[2025-04-24 16:23] VITALS: BP 121/61; PULSE 84; RESP 14; TEMP 36.8; O2SAT 96
[2025-04-24 22:07] VITALS: BP 129/61; PULSE 88; RESP 16; TEMP 36.6; O2SAT 95
[2025-04-24] MEDS: 0.9% Saline Lock 10 ML Syringe IV (22:12)
[2025-04-25 04:07] VITALS: BP 127/63; PULSE 67; RESP 16; TEMP 36.5; O2SAT 97
[2025-04-25 04:08] VITALS: BMI 40.4
[2025-04-25 05:51] LABS: Hematocrit 39.9 % (37-47); Hemoglobin 13.8 g/dL (12.0-15.0); Immature Granulocytes Count 0.120 X10^3/uL (0.0-0.0); Mean Corp Hgb Conc 34.6 g/dL (32-36); Mean Corpuscular Volume 101.3 fL (81-99); Mean Platelet Vol. 11.1 fl (6.2-12.0); NRBC Flagged by Analyzer 0 % (0-5); Platelet Count 192 K/mm3 (150-450); RBC Distribution Width CV 12.8 % (11.6-14.6); RBC Distribution Width SD 48.1 fl (35.1-43.9); Red Blood Count 3.94 M/mm3 (4.2-5.4); White Blood Count 10.9 K/mm3 (4.4-11.0)
[2025-04-25 06:12] LABS: Anion Gap 13 (5-15); BUN 37 mg/dL (4-19); BUN/Creat Ratio 32.5 RATIO (10-20); Calcium,Total 9.3 mg/dL (7.6-11.0); Carbon Dioxide 26.7 mmol/L (21.0-32.0); Chloride 103 mmol/L (98-108); Estimated Creatinine Clearance 37.76 ml/min (50-250); Glucose 106 mg/dL (70-99); Potassium 4.1 mmol/L (3.3-5.1)
--- NOTE | 2025-04-25 09:01 | CASEMGMT ---
Social Work SW called the daughter and left a message. MELANY Oh
--- NOTE | 2025-04-25 09:03 | CASEMGMT ---
[facility] and ref#. Awaiting response. Tiera Garcia DC Planning Asst.
--- NOTE | 2025-04-25 09:16 | CASEMGMT ---
Social Work SW called the daughter and left a message regarding scheduling transportation to [facility] and that [facility] had requested authorization with the insurance company. MELANY Oh
--- NOTE | 2025-04-25 10:11 | CASEMGMT ---
Brijesh has obtained auth to admit. SW's updated. Tiera Richards DC Planning Asst.
[2025-04-25 10:14] VITALS: BP 117/57; PULSE 103; RESP 16; TEMP 36.4; O2SAT 98
[2025-04-25] MEDS: TICAGRELOR 90 MG TABLET PO (10:15)
[2025-04-25] MEDS: Potassium Chloride Oral Tablet 20 MEQ PO (10:15)
--- NOTE | 2025-04-25 10:17 | CASEMGMT ---
Social Work SW spoke with the patient in her room and the daughter on the phone. ERIKA explained patient is accepted at [facility] and we are waiting for the insurance company to approve. The daughter stated she will pay privately for the patient to be transported to the SNF. MELANY Oh
--- NOTE | 2025-04-25 12:04 | CASEMGMT ---
Discharge Planning Call placed to pts daughter (Mary) to update her that auth has been rec'd and to discuss transport pre-payment process. SW's updated. Tiera Garcia DC Planning Asst.
--- NOTE | 2025-04-25 13:01 | CASEMGMT ---
Social Work SW spoke with the daughter and patient and informed them that patient will be discharging today. SW informed them once the DC paperwork is completed then transportation will be scheduled. SW informed them SW will keep them updated. MELANY Oh
--- NOTE | 2025-04-25 14:24 | PCM.TXEXTCAR ---
Diet Diet Order/Speech Therapy: INPATIENT Hospital Diet / Speech Therapy Order(s) 04/22/25 14:54 Diet: Cardiac - Heart Healthy Food consistency:: Soft & Bite Sized Liquid Consistency:: [place]/Mildly Thick Speech Therapy Comments: LIQUID BY TSP W/ ARBEN LEDESMA, DIRECT STAFF SUP ALL FOOD/DRINK Routine Orders/Code Status Enema Type: Fleetz Enema Frequency: Daily PRN Suppository Type: Dulcolax 10mg Suppository Frequency: Daily PRN DC O2, CPAP, BIPAP needs Home O2 Discharge instructions: No Wound(s) Buttocks/Coccyx: Wound Type: redness right wrist: Wound Type: Surgical Incision Therapies Weight Bearing: Weight bearing as tolerated Physical Therapy: Eval and Treat Occupational Therapy: Eval and Treat Problem/Diagnosis (1) Cardiac arrest: Status: Acute Code(s): I46.9 - Cardiac arrest, cause unspecified (2) Polymorphic ventricular tachycardia: Status: Acute Code(s): I47.29 - Other ventricular tachycardia (3) Flash pulmonary edema: Status: Acute Code(s): J81.0 - Acute pulmonary edema (4) Respiratory failure: Status: Acute Code(s): J96.90 - Respiratory failure, unspecified, unspecified whether with hypoxia or hypercapnia Plan #Cardiac arrest due to non-STEMI Patient was admitted with pulseless V. tach and cardiac arrest. She required defibrillation and achieved ROSC. She subsequently had PEA with respiratory failure and had emergent cardiac cath which showed occlusion of the mid LAD and 100% mid left circumflex occlusion with thrombus She has successful PTCA with JEREMIE to the mid left circumflex artery. To be on aspirin indefinitely and on Brilinta for at least 6 months. On high intensity statin 2D echo showed EF of 40 to 45% with stage II diastolic dysfunction. Cardiology on board. #Acute hypoxic and hypercapnic respiratory failure due to acute close pulmonary edema failure due to ejection fraction Was initially intubated but now extubated. On Lasix. Was extubated on 04/20/2025. On carvedilol and losartan On p.o. Lasix. Completed a course of Unasyn yesterday. #Cardiogenic shock: Now resolved Hypokalemia: resolved. . #A-fib: TSH within normal limits. Now in normal sinus rhythm. On carvedilol 3.125mg bid. #Dysphagia: Had modified barium swallow yesterday which showed moderate oropharyngeal dysphagia. She is on a modified diet. Tube feeds dc'd. #Depression and anxiety: Currently not on any medication. Stable. To follow up with her PCP for treatment as needed. #Class II obesity: BMI is 40.9. Complicates acute care, expected recovery and prognosis. DVT prophylaxis: SCDs Disposition: Awaiting placement pending pre-CERT. Allergies/Procedures Done in Hospital Allergies No Known Allergies Allergy (Verified 04/16/25 13:11) Procedures: 2-D Echocardiogram and Cardiac catheterization Type of Care/Length of Stay Estimated LOS: Convalescent Care Less Than 30 days Type of Care Needed: Skilled Rehab Potential: Fair Prognosis: Fair Additional Orders/Day of Discharge Day of Discharge: 04/25/25 Dietary and Speech Recommendations Dietitian Recommendations/Changes: 1. Recommend advanced diet as tolerated to cardiac per RAILROAD SIGNAL TECHNICIAN recommendations. 2. Recommend ridge BID with breakfast and dinner to promote wound healing, as diet is advanced. 3. Continue via NG tube, Jevity 1.5 at 40mL/hr x 24hours goal rate with 120mL water flush q4 hours to provide 1440kcal, 61 grams protein, and 1449mL water. Initiate at 15mL/hr and advance by 15mL every 8-12 hours as tolerated to goal rate. 4. Will monitor weight trends. Discharge Plan Admission Admit Date/Time: 04/16/25 15:51 Primary Reason for Your Visit: acute cardiopulmonary arrest Attending Provider: Gayathri Page Primary Care Provider: Eric Rich Consulting Providers: Roberto Rowe; Kunal Andrew; Claude Richardson; Jose Monzon; Martin Marks; Xavi Hicks; Nixon Perez; Alek Alexis; Re Vincent; Bob Neal; Chris Rondon; Dave Cuellar; Maya Pena; Daphne Alonso; Mireya Esparza; Isaias Kasper; Melo Mccormick; Tani Castillo; Mario Lai; Temi Santoro; Joanne Zazueta; Nawaf Perry; Arturo Tsai; Fidel Riojas; Juan Carlos Dasilva; Pradip Edwards; Clau Azevedo COMPENSATION VICE PRESIDENT; Karyna Santillan; Diana Mayers Instructions Patient Instructions: Sudden Cardiac Arrest Discharge Orders/Prescriptions Prescriptions: New furosemide 40 mg Tablet 40 mg PO BIDLX Qty: 60 2RF atorvastatin 40 mg Tablet 40 mg PO QHS Qty: 30 2RF carvedilol 3.125 mg Tablet 3.125 mg PO BID Qty: 60 2RF potassium chloride 20 mEq Tablet,Er Particles/Crystals 20 meq PO BIDCM Qty: 60 2RF pantoprazole 40 mg Tablet,Delayed Release (Dr/Ec) 40 mg PO DAILY Qty: 30 2RF losartan 25 mg Tablet 25 mg PO DAILY Qty: 30 2RF aspirin 81 mg Tablet,Chewable 81 mg PO BREAKFAST Qty: 30 2RF ticagrelor [Brilinta] 90 mg Tablet 90 mg PO BID Qty: 60 2RF Continued sennosides-docusate sodium [Senna with Docusate Sodium] 8.6-50 mg tablet 2 tab PO DAILY PRN psyllium husk [Metamucil] 0.4 gram capsule 0.4 g PO DAILY Discontinued atenolol 50 mg tablet 100 mg PO DAILY amlodipine [Norvasc] 5 mg tablet 5 mg PO DAILY Referrals / Follow Up: Julien Emanuel MD [Med Staff - Active Staff, Cardiology] - Within 1 Month Eric Rich MD [Primary Care Provider, Family Practice] - Within 1 Week Disposition Disposition (needs filled in before D/C Order can be placed): Nursing Home Facility (4) Respiratory failure Qualifiers: Chronicity: acute Respiratory failure complication: hypoxia Qualified Code(s): J96.01 - Acute respiratory failure with hypoxia
[2025-04-25 14:36] VITALS: BP 109/47; PULSE 97; RESP 16; TEMP 36.6; O2SAT 98
[2025-04-25] MEDS: 0.9% Saline Lock 10 ML Syringe IV (14:50)
--- NOTE | 2025-04-25 15:32 | CASEMGMT ---
Discharge Planning Discharge orders, signed med list, [id number], and transport time faxed to Roberto @ [facility]. Physicians will transport pt by wheelchair at 4p. Physicians states that pts insurance will cover cost of trip and no payment is required of pt/family. Nursing, SW, pt, and her daughter (Mary) updated. Tiera Garcia DC Planning Asst.
--- NOTE | 2025-04-25 16:33 | NURSING ---
This RN called report to JERRY Patrick at [facility] at this time.
--- NOTE | 2025-04-25 18:22 | PCM.DC.SUM ---
Providers Date of Admission: 04/16/25 Date of Discharge: 04/25/25 Primary Care Physician: Dr. Eric Rich MD Consultations 04/16/25 17:44 Consult: Donations Attendant / Pulmonary Medicine Routine Consulting Provider: [facility] Reason for Consult: intubated, resp failure, cardiac arrest, LCX thrombus s/p cath EMERGENT Consult: No MD Notified: Yes Date Notified: 04/16/25 Time Notified: 18:00 Method of Notification: Verbal 04/16/25 17:45 Consult: Cardiology Routine Consulting Provider: Julien Emanuel Reason for Consult: cardiac arrest, LCX thrombus EMERGENT Consult: Yes MD Notified: Yes Date Notified: 04/16/25 Time Notified: 17:46 Method of Notification: ED Physician Initiated Reason For Visit: IRREGULAR HEART BEAT Diagnosis Discharge Diagnosis (1) Cardiac arrest: Status: Acute Code(s): I46.9 - Cardiac arrest, cause unspecified (2) Polymorphic ventricular tachycardia: Status: Acute Code(s): I47.29 - Other ventricular tachycardia (3) Flash pulmonary edema: Status: Acute Code(s): J81.0 - Acute pulmonary edema (4) Respiratory failure: Status: Acute Code(s): J96.90 - Respiratory failure, unspecified, unspecified whether with hypoxia or hypercapnia Qualifiers: Chronicity: acute Respiratory failure complication: hypoxia Qualified Code(s): J96.01 - Acute respiratory failure with hypoxia Plan #Cardiac arrest due to non-STEMI Patient was admitted with pulseless V. tach and cardiac arrest. She required defibrillation and achieved ROSC. She subsequently had PEA with respiratory failure and had emergent cardiac cath which showed occlusion of the mid LAD and 100% mid left circumflex occlusion with thrombus She has successful PTCA with JEREMIE to the mid left circumflex artery. To be on aspirin indefinitely and on Brilinta for at least 6 months. On high intensity statin 2D echo showed EF of 40 to 45% with stage II diastolic dysfunction. Cardiology on board. #Acute hypoxic and hypercapnic respiratory failure due to acute close pulmonary edema failure due to ejection fraction Was initially intubated but now extubated. On Lasix. Was extubated on 04/20/2025. On carvedilol and losartan On p.o. Lasix. Completed a course of Unasyn yesterday. #Cardiogenic shock: Now resolved Hypokalemia: resolved. . #A-fib: TSH within normal limits. Now in normal sinus rhythm. On carvedilol 3.125mg bid. #Dysphagia: Had modified barium swallow yesterday which showed moderate oropharyngeal dysphagia. She is on a modified diet. Tube feeds dc'd. #Depression and anxiety: Currently not on any medication. Stable. To follow up with her PCP for treatment as needed. #Class II obesity: BMI is 40.9. Complicates acute care, expected recovery and prognosis. DVT prophylaxis: SCDs Disposition: Awaiting placement pending pre-CERT. Medications at Discharge Home Medications psyllium husk 0.4 gram capsule (Metamucil) 0.4 g PO DAILY 03/31/18 sennosides 8.6 mg-docusate sodium 50 mg tablet (Senna with Docusate Sodium) 2 tab PO DAILY PRN 03/31/18 aspirin 81 mg chewable tablet 81 mg PO BREAKFAST #30 tabs 04/25/25 atorvastatin 40 mg tablet 40 mg PO QHS #30 tabs 04/25/25 carvedilol 3.125 mg tablet 3.125 mg PO BID #60 tabs 04/25/25 furosemide 40 mg tablet 40 mg PO BIDLX #60 tabs 04/25/25 losartan 25 mg tablet 25 mg PO DAILY #30 tabs 04/25/25 pantoprazole 40 mg tablet,delayed release 40 mg PO DAILY #30 tabs 04/25/25 potassium chloride 20 mEq tablet,extended release(part/cryst) 20 meq PO BIDCM #60 tabs 04/25/25 ticagrelor 90 mg tablet (Brilinta) 90 mg PO BID #60 tabs 04/25/25 Hospital Course Operations None Procedures 2-D Echocardiogram and Cardiac catheterization Summary of Care Provided Minutes Spent on Discharge: 45 Hospital Course: Patient is an 79-year-old female with past medical history as outlined was admitted to the ED on 04/16/2025 with a complaint of arm and jaw pain as well as pain between her shoulder blades radiating to both arms. When she arrived in the ED she was subsequently found to be in pulseless V. tach and a CODE BLUE was called. She required defibrillation and she converted to atrial fibrillation. She subsequently became alert and told the ED doctor she had had right shoulder pain and had been bedridden for 2 days prior to admission. She subsequently became short of breath and required increasing amounts of oxygen. There was concern for flash pulmonary edema and she was emergently intubated. She went into PEA arrest during the intubation and had CPR done again and ROSC was obtained. She was taken emergently to the [facility]. Initial troponin was [address] pro[address] was 955. [address] of the chest showed no evidence of PE. In the [facility] she had complete total obstruction of the mid LAD and 100% occlusion of the mid left circumflex artery with thrombus and 50 to 60% mid RCA stenosis. She has successful PTCA and JEREMIE to the mid left circumflex artery. She was admitted to the ICU and managed for acute cardiopulmonary arrest in the setting of acute myocardial infarction. Critical care and cardiology were consulted. 2D echo done showed EF of 40 to 45% with severe posterior and lateral hypokinesis and apical hypokinesis with stage II diastolic dysfunction and elevated left atrial filling pressures. Patient had a prolonged and protracted hospital course. She was also managed for acute hypoxic and hypercapnic respiratory failure. She was diuresed with IV Lasix. She was subsequently extubated on 04/20/2025. She was placed on high intensity statin and aspirin as well as Brilinta. She was also placed on carvedilol and losartan. Hospital course was complicated by dysphagia of and she had modified barium swallow which showed moderate oropharyngeal dysphagia. She had been on tube feeds and this was subsequently discontinued. She also completed a course of Unasyn due to concerns for aspiration pneumonia. She was counseled to be on aspirin indefinitely and to be on Brilinta for at least 6 months. She was discharged to a care home facility in [place] on 04/25/2025. Patient was seen and examined prior to discharge. She had no active complaints and had an uneventful night. Review of systems otherwise negative. Physical Exam Const alert, oriented x3 and no apparent distress General Appearance: cooperative and comfortable HEENT normocephalic, head/scalp atraumatic, hearing grossly normal bilaterally, moist oral mucous membranes and oropharynx normal Mouth: oral and palatal mucosa normal Eyes EOMs intact bilaterally and conjunctivae normal Neck supple and no JVD Lymph Lymphatic: no lymphedema noted Resp normal respiratory effort, normal air movement, no retractions, no use of accessory muscles and clear to auscultation bilaterally Cardio regular rate, regular rhythm, S1 normal heart sound, S2 normal heart sound and no murmurs GI normal to inspection, nondistended, normoactive bowel sounds, soft to palpation, non-tender and non-distended Extremity normal to inspection, full ROM, normal capillary refill and no clubbing, cyanosis or edema General Extremity: no tenderness to palpation of joints or extremities Skin no rashes or lesions noted General Skin Exam: no breakdown Neuro oriented x3, CN's II-XII intact bilaterally, moves all extremities and no focal motor deficits Sensorium / Orientation: awake and alert Motor Exam: strength 5/5 throughout and general weakness Psych thought process normal, cooperative and affect normal Appearance: appropriate Weight / BMI Weight Weight: 193 lb 1.999 oz Body Mass Index (BMI) 40.4 ABG / Lab / Microbiology Data 04/25/25 05:11 04/25/25 05:11 Laboratory: Laboratory Results - last 24 hr 04/25/25 05:11: WBC 10.9, RBC 3.94 L, Hgb 13.8, Hct 39.9, MCV 101.3 H, MCH 35.0 H, MCHC 34.6, RDW Std Deviation 48.1 H, RDW Coeff of Kari 12.8, Plt Count 192, MPV 11.1, Immature Gran % (Auto) 1.100 H, Neut % (Auto) 63.1, Lymph % (Auto) 19.9, Sunflower % (Auto) 10.1 H, Eos % (Auto) 5.2 H, Baso % (Auto) 0.6, Absolute Neuts (auto) 6.9, Absolute Lymphs (auto) 2.16, Nucleated RBC % 0, Sodium 143, Potassium 4.1, Chloride 103, Carbon Dioxide 26.7, Anion Gap 13, BUN 37 H, Creatinine 1.15, Estim Creat Clear Calc 37.76 L, Est GFR (MDRD) Non-Af 48 L, BUN/Creatinine Ratio 32.5 H, Glucose 106 H, Calcium 9.3 Microbiology: Microbiology 04/23/25 11:40 Sputum, Expectorated/Coughed Gram Stain - Final 04/23/25 11:40 Sputum, Expectorated/Coughed Respiratory Culture - Final Enterobacter cloacae complex 04/16/25 19:45 Sputum, Induced/Lukens Gram Stain - Final 04/16/25 19:45 Sputum, Induced/Lukens Respiratory Culture - Final Mixed normal respiratory suzan. No Streptococcus pneumoniae, beta-hemolytic Streptococcus or Staphylococcus aureus isolated. D/C Instructions Discharge Activity: Return to Normal Activity Weight Bearing Status: Weight bearing as tolerated Call your doctor if you observe: Fever of 101 or Higher, Shortness of breath, Dizziness, Swelling in the ankles and Chest pain DC O2, CPAP, BIPAP Needs Home O2 Discharge instructions: No DC home with Oxygen: No Meaningful Use Info Meaningful Use Meaningful Use Diagnoses (Choose all that apply): AMI AMI/Post PCI/Angioplasty Aspirin given w/in 24hrs of arrival?: Yes ASA at discharge?: Yes Antiplatelet Therapy at Discharge:: Yes Statins at discharge?: Yes Joselo/ARB at discharge?: Yes Beta Piyush at discharge?: Yes Done w/ Acute MA measure.: Yes Documented LVEF (%): 40 Discharge Plan Admission Admit Date/Time: 04/16/25 15:51 Primary Reason for Your Visit: acute cardiopulmonary arrest Attending Provider: Gayathri Page Primary Care Provider: Eric Rich Consulting Providers: Roberto Rowe; Kunal Andrew; Claude Richardson; Jose Monzon; Martin Marks; Xavi Hicks; Nixon Perez; Alek Alexis; Re Vincent; Bob Neal; Chris Rondon; Dave Cuellar; Maya Pena; Daphne Alonso; Mireya Esparza; Isaias Kasper; Melo Mccormick; Tani Castillo; Mario Lai; Temi Santoro; Joanne Zazueta; Nawaf Perry; Arturo Tsai; Fidel Riojas; Juan Carlos Dasilva; Pradip Edwards; Clau Azevedo NP; Karyna Santillan; Diana Mayers Instructions Patient Instructions: Sudden Cardiac Arrest Discharge Orders/Prescriptions Prescriptions: New furosemide 40 mg Tablet 40 mg PO BIDLX Qty: 60 2RF atorvastatin 40 mg Tablet 40 mg PO QHS Qty: 30 2RF carvedilol 3.125 mg Tablet 3.125 mg PO BID Qty: 60 2RF potassium chloride 20 mEq Tablet,Er Particles/Crystals 20 meq PO BIDCM Qty: 60 2RF pantoprazole 40 mg Tablet,Delayed Release (Dr/Ec) 40 mg PO DAILY Qty: 30 2RF losartan 25 mg Tablet 25 mg PO DAILY Qty: 30 2RF aspirin 81 mg Tablet,Chewable 81 mg PO BREAKFAST Qty: 30 2RF ticagrelor [Brilinta] 90 mg Tablet 90 mg PO BID Qty: 60 2RF Continued sennosides-docusate sodium [Senna with Docusate Sodium] 8.6-50 mg tablet 2 tab PO DAILY PRN psyllium husk [Metamucil] 0.4 gram capsule 0.4 g PO DAILY Discontinued atenolol 50 mg tablet 100 mg PO DAILY amlodipine [Norvasc] 5 mg tablet 5 mg PO DAILY Referrals / Follow Up: Julien Emanuel MD [Med Staff - Active Staff, Cardiology] - Within 1 Month Eric Rich MD [Primary Care Provider, Family Practice] - Within 1 Week Disposition Disposition (needs filled in before D/C Order can be placed): Long Term Facility Charges/Coding Visit Charges Inpatient E&M: 03935 Disch Hosp >30min
== END 2025-04-25 16:37 | disposition skilled nursing facility (03) | DRG 321 ==
LOC: ED 14:05 → CLSP 14:38 → CLINP 14:44 → CLSP 17:05 → ICU 17:05 → PCU 04-20 10:28
PROVIDERS: Internal Medicine; Internal Medicine Cardiovascular Disease; Internal Medicine Critical Care Medicine; Admitting Provider Internal Medicine; Emergency Provider Surgery; PCP Family Medicine; Visit Provider Student in an Organized Health Care Education/Training Program
DX: I21.4 Non-ST elevation (NSTEMI) myocardial infarction (principal); J96.01 Acute respiratory failure with hypoxia; R57.0 Cardiogenic shock; J96.02 Acute respiratory failure with hypercapnia; J81.0 Acute pulmonary edema; I47.20 Ventricular tachycardia, unspecified; Z68.41 Body mass index [BMI] 40.0-44.9, adult; I48.91 Unspecified atrial fibrillation; E86.0 Dehydration; I11.0 Hypertensive heart disease with heart failure; F32.A Depression, unspecified; I25.110 Atherosclerotic heart disease of native coronary artery with unstable angina pectoris; E87.6 Hypokalemia; R13.12 Dysphagia, oropharyngeal phase; F43.10 Post-traumatic stress disorder, unspecified; E66.812 Obesity, class 2; Z79.899 Other long term (current) drug therapy
CPT/HCPCS: 31500; 31720; 36415; 36569; 36600; 71045; 71275; 74018; 74230; 80048; 80053; 80061; 81001; 82803; 83735; 83880; 84443; 84484; 85025; 85347; 85610; 85730; 87070; 87077; 87186; 87205; 92526; 92610; 92611; 92928; 92950; 93005; 93306; 93458; 94003; 94640; 94660; 94668; 94762; 97116; 97162; 97166; 97530; 97535; 97803; 99252; 99285; C1769; C1887; C1894; Q9957; Q9967; A4216; C1725; C1874; C8929; C9600; G0463; J0295; J1938; J2405; J3475